=== PATIENT | female | born 1940 | race Caucasian/White ===

== ENCOUNTER 2017-09-11 12:00 | Emergency (ER) | payer MEDICARE, OTHER ==
[~2017-09-11] VITALS: Ht 162.6 cm; Wt 78.5 kg
[~2017-09-11 12:00] MED LIST: ADULT LOW DOSE81 MG PO; ALLOPURINOL 30300 M2 PO; ALORA1 EAC1 TRANSDERM; AMITRIPTYLINE H25 M3 PO; AMITRIPTYLINE H50 M2 PO; AMLODIPINE BESYL5 MG PO; APAP500 PO; ASPIR 8181 MG PO; ASPIRIN EC81 M1 PO; ATIVAN2 MG PO; BENTYL 10 MG CA10 M1 PO; CALCIUM 500 +1 EAC5 PO; CALCIUM 600 MG1 EAC2 PO; CALCIUM 600 MG1 EAC3 PO; CIPRO250 M1 PO; COLACE100 MG PO; COUMADIN 5 MG TA5 M1 PO; DIFLUCAN200 MG PO; EMLA CREAM5 GM TOP; ENOXAPARIN100 MG/11 SUBQ; ESTRACE0.5 MG PO; ESTRADIOL 1 MG T1 M1; ESTRADIOL 1 MG T1 M1 PO; FISH OIL 1,0001 EAC9 PO; HYDROCODON-ACE1 EAC7 PO; LEVSIN0.125 MG PO; MIRALAX17 GM PO; MULTI VITAMIN1 EACH PO; MULTIVITAMINS1 EAC7; NORVASC10 MG PO; OCUVITE TABLET1 EAC1 PO; OMEPRAZOLE40 MG PO; ONDANSETRON HCL4 M2 PO; OXYCODONE HCL 55 MG PO; PHENERGAN 25 MG25 M1 PO; PROMS25 WY RECTAL; SAVELLA50 MG PO; TOPROL XL50 MG PO; TOVIAZ8 MG PO; TYLENOL EXTRA500 MG PO; VITAMIN B-12500 MCG PO; VITAMIN D1000 UNI1 PO; VITAMIN E400 UNIT PO; VIVELLE-DOT1 EAC1 TRANSDERM; XALATAN2.5 ML OPHTHALMIC; XANAX1 MG PO; ZANTAC 150MG T150 MG PO
[2017-09-11] MEDS ORDERED: XANAX 0.25 MG0.25 MG PO (12:29)
[2017-09-11] MEDS ORDERED: FISH OIL 1,001000 M2 PO (12:29)
[2017-09-11] MEDS ORDERED: ANTIDIARRHEAL PO (12:30)
[2017-09-11] MEDS ORDERED: FIBER (12:31)
[2017-09-11] MEDS ORDERED: TRAMADOL 50 MG50 MG PO ×2 (12:31→14:38)
[2017-09-11] MEDS ORDERED: ATIVAN1 MG PO (12:32)
[2017-09-11] MEDS ORDERED: LOMOTIL TABLET1 EACH PO (12:34)
[2017-09-11] MEDS ORDERED: IBUPROFEN 800800 M1 PO (14:38)
[2017-09-11] MEDS ORDERED: ONDANSETRON HCL4 M2 PO (14:38)
[2017-09-11] MEDS ORDERED: KEFLEX500 M1 PO (14:38)
[2017-09-11 16:18] VITALS: BP 124/79
== END 2017-09-11 16:19 | disposition home or self-care (01) ==
LOC: M.ERS 12:00
DX: S42.421A Displaced comminuted supracondylar fracture without intercondylar fracture of right humerus, initial encounter for closed fracture (principal); S81.811A Laceration without foreign body, right lower leg, initial encounter; I71.4 Abdominal aortic aneurysm, without rupture; G62.9 Polyneuropathy, unspecified; Z88.8 Allergy status to other drugs, medicaments and biological substances; Z88.5 Allergy status to narcotic agent; Z88.0 Allergy status to penicillin; Z88.2 Allergy status to sulfonamides; W01.0XXA Fall on same level from slipping, tripping and stumbling without subsequent striking against object, initial encounter; Y93.89 Activity, other specified; Y92.89 Other specified places as the place of occurrence of the external cause; Y99.8 Other external cause status

== ENCOUNTER 2017-09-21 09:38 | Observation (INO) | payer MEDICARE, OTHER ==
[~2017-09-21] VITALS: Ht 165.1 cm; Wt 78.5 kg
[~2017-09-21 09:38] MED LIST changes: +ANTIDIARRHEAL PO; +ATIVAN1 MG PO; +FIBER; +FISH OIL 1,001000 M2 PO; +IBUPROFEN 800800 M1 PO; +KEFLEX500 M1 PO; +LOMOTIL TABLET1 EACH PO; +TRAMADOL 50 MG50 MG PO; +XANAX 0.25 MG0.25 MG PO
[2017-09-21 13:00] VITALS: BP 117/90
[2017-09-21 13:51] LABS: ABSOLUTE BASOPHILS 0.1 thou/uL (0.0-0.2); ABSOLUTE EOSINOPHILS 0.1 thou/uL (0.0-0.7); ABSOLUTE LYMPHOCYTES 1.5 thou/uL (0.8-5.3); ABSOLUTE MONOCYTES 0.5 thou/uL (0.0-1.2); ABSOLUTE NEUTROPHILS 3.1 thou/uL (1.6-8.1); EOSINOPHILS 1.2 %; HEMATOCRIT 38.6 % (37.0-47.0); HEMOGLOBIN 12.6 gm/dL (12.0-15.0); LYMPHOCYTES 28.1 %; MCH 31.4 pg (26.0-34.0); MCHC 32.7 g/dL (28.0-37.0); MCV 96.2 fL (80.0-100.0); MONOCYTES 10.2 %; MPV 7.9 fl. (7.2-11.1); NUCLEATED RBCS 0 /100WBC; PLATELET COUNT* 172 thou/uL (150-400); POLYS 59.5 %; RBC 4.01 mil/uL (4.20-5.00); RDW-CV 13.9 % (10.5-14.5); WBC 5.2 thou/uL (4.0-11.0)
[2017-09-21 13:55] LABS: CALCIUM 10.1 mg/dL (8.5-10.1); CREATININE 0.8 mg/dL (0.6-1.3)
[2017-09-21 13:56] LABS: APTT 27.8 Seconds (25.0-31.3); INR 1.1; PROTIME 10.6 Seconds (9.20-11.50)
[2017-09-21 13:59] LABS: ALBUMIN 3.7 g/dL (3.4-5.0); TOTAL PROTEIN 6.9 g/dL (6.4-8.2)
--- NOTE | 2017-09-21 17:45 | EKG ---
[place] [address] ELECTROCARDIOGRAM REPORT Name: KYREE BRAND Room: [place] [address] ADM IN [facility]#: [id number] Admission: 09/21/17 Attend Phys: Tereso Brown Discharge: Date of : 40 Report #: [id number] THIS REPORT FOR: //name// [facility] Test Date: 2017-09-21 Test Time: 13:40:37 Pat Name: KYREE BRAND Department: Room: [place] [address] Gender: F Section Gang Worker: : 1940 Requested By: Zackery Herrera Order Number: [id number] Tabatha MD: Hawk Castellanos Measurements Intervals Hay Rate: 97 P: 46 ND: 186 QRS: -11 QRSD: 95 T: -5 QT: 353 QTc: 449 Interpretive Statements Sinus rhythm Borderline T abnormalities, inferior leads Compared to ECG 11/11/2015 19:59:14 no change Electronically Signed On 09-21-2017 17:45:22 PHARMACIST PER DIEM by Hawk Castellanos [email or web address] <ELECTRONICALLY SIGNED> By: Hawk Castellanos MD, [facility] 09/21/17 1745 1340 1340 Hawk Castellanos MD, [facility] /EPI
[2017-09-21 20:09] VITALS: BP 136/76
[2017-09-22 00:34] VITALS: BP 136/84
[2017-09-22 04:28] LABS: HEMOGLOBIN 12.5 gm/dL (12.0-15.0)
[2017-09-22 04:33] VITALS: BP 176/88
[2017-09-22 07:44] VITALS: BP 165/81
[2017-09-22 11:39] VITALS: BP 165/81
[2017-09-22] MEDS ORDERED: OCUVITE TABLET1 EAC1 PO (16:58)
[2017-09-22] MEDS ORDERED: METAMUCIL1 EAC1 PO (17:05)
[2017-09-22] MEDS ORDERED: XARELTO10 MG PO (17:13)
[2017-09-22] MEDS ORDERED: BENTYL 10 MG CA10 M1 PO (18:57)
[2017-09-22] MEDS ORDERED: MILK OF MA2400 MG/10 PO (19:02)
[2017-09-22] MEDS ORDERED: PROTONIX40 M2 PO (19:04)
[2017-09-22] MEDS ORDERED: THERAGRAN-M PR1 EAC1 PO (19:07)
--- NOTE | 2017-11-28 12:57 | CON ---
[address] [address] CONSULTATION Name: KYREE BRAND Room: [address] Tony Grissom#: [id number] Admission: 09/21/17 Attend Phys: Tereso Brown Discharge: 09/22/17 Date of : 40 Report #: [id number] THIS REPORT FOR: //name// CC: Carlos Allen HISTORY OF PRESENT ILLNESS: The patient is a 77-year-old female who presents to [facility] for operative fixation of her right distal humerus. She saw my partner, Dr. Herrera on 09/16/2017. She sustained a fall on 09/11/2017. She went to [facility] Emergency Department where she was diagnosed with a distal humerus fracture. My partner, Dr. Junior as mentioned saw her in consultation. They had quite a long conversation about multiple different treatment options including nonoperative as well as operatively. After going over what nonoperative and operative management would entail, she wished to have surgery. This is her dominant arm. Her pain today is 5/10, sharp and for the most part constant. She does have a little bit of tingling in her fingers. She says the more she thinks about it, since asked by Dr. Herrera last week, this might be a chronic issue with her as she has fibromyalgia and neuropathy chronically. She presents today feeling well. No fevers, no chills, no chest pain or shortness of air. ALLERGIES: MORPHINE, SULFA, WHICH CAUSES A RASH; PENICILLIN, WHICH CAUSES HIVES; OXYCODONE, HALLUCINATION AND LATEX. MEDICATIONS: Omeprazole, dicyclomine, alprazolam, amitriptyline, Savella, latanoprost, fish oil, B12, izvw-kms-xzyoniz multivitamin, Tylenol, tramadol, lorazepam, diphenoxylate and atropine. SOCIAL HISTORY: and lives with spouse. Denies any tobacco, alcohol or illicit drug use. PAST MEDICAL HISTORY: History of blood clots, cancer, depression, fibromyalgia, gastric reflux, neuropathy, osteoporosis and rheumatoid arthritis. PAST SURGICAL HISTORY: Cholecystectomy, hysterectomy with ovaries, skin cancer, bilateral knee and hip replacement and also history of bilateral knee arthroscopy. FAMILY HISTORY: Arthritis, stroke, lung disease, thyroid disease, osteoporosis, mental illness, diabetes, hypertension, bleeding disorder, heart disease, autoimmune disease and seizure disorder. REVIEW OF SYSTEMS: A 14-point complete, it was negative except for musculoskeletal, please see HPI for [place] [address] CONSULTATION Name: KYREE BRAND Room: [address] Tony MYolyRYoly#: [id number] Admission: 09/21/17 Attend Phys: Tereso Brown Discharge: 09/22/17 Date of : 40 Report #: [id number] PHYSICAL EXAMINATION: VITAL SIGNS: Her vitals were reviewed today and they are stable and she is afebrile. GENERAL: She is alert and oriented x 3. HEENT: Head normocephalic. Eyes: Extraocular muscles are intact bilaterally. Ears: Normal hearing. Nose: Nares patent. LUNGS: Nonlabored breathing. CARDIOVASCULAR: Cap refill is brisk in the right upper extremity and palpable radial pulse. ABDOMEN: Soft. PSYCHIATRIC: Appears to be normal mood and affect. NEUROLOGIC: Grossly, she is intact distally. No specific sensory deficit can be identified; however, she does complain of some paresthesias especially of the ulnar nerve distribution. MUSCULOSKELETAL: Taken out of splint today. The skin is intact. Her compartments are soft and appropriately tender for her fracture. Swelling is mild. Flex and extends the wrist, fingers and thumb appropriately. Movement about the elbow is too painful to check. IMAGING: Imaging was reviewed, shows a transverse distal humerus fracture and appears to be an extraarticular. It is low in nature. IMPRESSION: Right transverse distal humerus fracture. PLAN: We had a long conversation today. Dr. Herrera had personally discussed this case with me about taking over her care as I am a trauma trained specialist. He personally called the patient and discussed with her that I would be taking over her care today for surgery and she was okay with this. I today talked about multiple different treatment options as well. We also went over what nonoperative management would entail and as far as I would be concerned the nonoperative management for this would be placing her in a splint for most likely another week to two weeks to allow this to rest and then we will begin an aggressive range of motion protocol trying to get her as much range of motion as we can. This would likely be a malunion. She would likely lose significant motion and could have pain. In regard to this affecting any arthritis, it is not an intra-articular fracture. I believe the main differences would be pain and range of motion. Surgical goals would be to give her a stable elbow with rastafarian of the normal anatomy and get her range of motion and pain in a better position. However, none of this could be guaranteed. After having my conversation, she still does wish to proceed with surgery. I therefore had a long conversation with her about the specific risks of surgery, they include but are not limited to infection that could require surgical treatment, long-term antibiotics and there are sequelae of end-organ damage, C. difficile colitis and resistance, continuing of pain, worsening of pain, decreased function compared to pre-injury function. I specifically talked [address] [place] [address] CONSULTATION Name: KYREE BRAND [place] Room: [address] Tony Grissom#: [id number] Admission: 09/21/17 Attend Phys: Tereso Brown Discharge: 09/22/17 Date of : 40 Report #: [id number] to her that stiffness is most likely going to be a concern. I told her to expect some loss of range of motion. The goal is going to get her to a functional range of motion, but full range of motion is definitely not something that could be promised, malunion, nonunion, failure of hardware, failure of bone, need for removal of hardware, need for further surgery for any reason or intervention for any reason, neurovascular injury that could be permanent, limb and life threatening nerve injury that can be very specific to this surgery as we will have to dissect out the ulnar nerve, would be an ulnar nerve injury that could lead to loss of hand function and significant areas of numbness throughout the extremity. The same could be said for the radial nerve as well as we will be in conjunction with this and that can lead to significant dysfunction of her hand. Any issues with this could even lead to Plastic Surgery type reconstruction or tendon transfers. Bleeding and its associated risks of hematoma hemarthrosis or need for transfusion and the inherent risks associated with that. DVT, PE, AK, stroke, possible , anesthetic related complications would be discussed by the anesthesia team prior to surgery. There is also a possibility of unforeseen complications and tangibles and will be addressed upon their presentation. This whole visit we had was in the presence of her daughter and her as well. After addressing any questions or concerns if she or family members had, she acknowledged and accepted the risks of surgery and she does wish to proceed and we obtained her verbal and written consent. After surgery, she will be admitted for observation and medical management. We will have therapy work with her in the morning as far as helping her get around and transfer. She will be in a splint for 2 weeks and nonweightbearing. I made sure that the family members as well as her had access to my cell phone number and let them know that at any point in time, they may call or text me with any questions or concerns. <ELECTRONICALLY SIGNED> By: Alexandro Junior DO 11/28/17 1257 [id number] [id number] Loya DO /margarita
--- NOTE | 2017-11-28 12:57 | OP ---
[address] [address] OPERATIVE REPORT Name: KYREE BRAND Room: [address] Tony Grissom#: [id number] Admission: 09/21/17 Attend Phys: Tereso Brown Discharge: 09/22/17 Date of : 40 Report #: [id number] THIS REPORT FOR: //name// CC: Carlos Allen PREOPERATIVE DIAGNOSES: 1. Right distal humerus fracture, intra-articular, closed, displaced, traumatic. 2. Osteopenia. POSTOPERATIVE DIAGNOSES: 1. Right distal humerus fracture, intra-articular, closed, displaced, traumatic. 2. Osteopenia. PROCEDURE: Open reduction and internal fixation of right intra-articular distal humerus fracture. SURGEON: Carlos Loya DO. BLUEPRINT MAKER: Shun Avila DO and Orestes Pulido DO. ANESTHESIA: General. ANTIBIOTICS: Weight-appropriate dosing of Ancef IV preoperatively. COMPLICATIONS: None. ESTIMATED BLOOD LOSS: 100 mL. SPECIMENS: None. DRAINS: None. CONDITION OF THE PATIENT: Stable to PACU. IMPLANTS: Shannan distal humeral plates, medial and posterolateral, with cortical and locking screws. INDICATIONS FOR PROCEDURE: The patient is a 77-year-old female, who had originally seen my partner, Dr. Herrera. He was in direct communication with me in regards to her care and he personally discussed with the family as well about my taking over her care as I am an orthopedic fracture specialist. I met them in the preoperative area and we had a very long discussion about her treatment [address] [place] [address] OPERATIVE REPORT Name: KYREE BRAND Room: [address] Angelika.#: [id number] Admission: 09/21/17 Attend Phys: Tereso Brown Discharge: 09/22/17 Date of : 40 Report #: [id number] options and what the risks and complications were regarding both, especially surgery. Please see my consultation for a full list of what was discussed. After addressing the questions and concerns that she and/or family had, she acknowledged and accepted those risks and wished to proceed with surgery, and we obtained a verbal and written consent. DESCRIPTION OF PROCEDURE: In the presence of the preoperative and operative teams, I asked the patient as to what extremity was fractured and she said the right. I marked that extremity and all team members agreed. She was taken back to the operative suite, where a briefing was performed, indicating correct patient, procedure, site, antibiotics and that all implants needed were present and sterile. All team members agreed. General anesthetic was administered. She was transferred over the operative table in the supine position, then placed in the left lateral decubitus position in a razo bag, well padded and well secured. The right upper extremity was draped over appropriately and we bolstered this with a bone foam ramp, brought in the C-arm and confirmed that we should obtain the appropriate images necessary. We then sterilely prepped and draped the right upper extremity in the standard fashion. We placed a sterile tourniquet. Official timeout was performed indicating correct patient, procedure, site, antibiotics, and that all implants needed were present and sterile. All team members agreed. We marked out our incision directly posteriorly and making sure that the incision curved so that it would not be directly over the olecranon. We Esmarched the extremity and inflated the tourniquet to 250 mmHg and began our incision. A #10 blade scalpel through the skin and then soft tissue dissection down to the fascial layer. We first began by working our way ulnarly at the confluence of the medial and long edge. We expected to find her ulnar nerve and we did. Her ulnar nerve had significant scarring around with this and was very entrapped at the cubital tunnel and Slade's ligament. We tagged this with a vessel loop and only performed gentle retraction and protected it throughout the entirety of the case and freed it up so that it was freely mobile and make it work on either side of this when necessary so as to avoid any injury to the nerves. We came down and explored her medial aspect of the distal humerus and then also the humeral shaft itself. We then went over to the radial side, dissected only what was necessary to again gain access to her distal humerus. Our approach was paratricipital in nature. We did not perform an osteotomy of the olecranon. Once we had full visualization on both sides of the triceps, we were then able to curette out the fracture sites. She had some significant comminution and bone loss on the posterior lateral aspect; however, we were able to get an excellent fracture reduction and read on the medial side. Once we obtain that reduction and pinned it with K wires, both medially and laterally, we brought in C-arm imaging and confirmed that our reduction on both AP and lateral planes as well as internal and external obliques looking at her condyles, our reduction was excellent and we had restored the anatomy. We then placed a medial plate, K-wired this into position. We trialled a lateral plate [address] [address] OPERATIVE REPORT Name: KYREE BRAND [id number] Admission: 09/21/17 Attend Phys: Tereso Brown Discharge: 09/22/17 Date of : 40 Report #: [id number] for parallel plating. However, we would not be able to obtain any more than just one screw distally with this type of construct. We then trialled a posterolateral plate. This would allow us to get two locking screws in the distal aspect of the fracture. Therefore, this was more appropriate. We pinned this into position, brought in C-arm imaging and confirmed that our fracture reduction was excellent and our hardware position was excellent. We first began by securing the lateral plate. We did this by drilling a cortical screw in nature to suck this down in the bone proximally. It was still sitting down on the bone nicely. Distally, we then drilled and placed 2 unicortical locking screws in the distal fragment and then one more locking screw in the metaphyseal area. We then turned our attention medially. Medially, we sucked it down the bone on the proximal aspect of the cortical screw. We then were able to place a long screw locking and another long screw locking on the distal fragment from the medial side and then 2 more cortical screws. At this point in time, all hardware was in place. We removed K wires. We brought in C-arm imaging. We confirmed that all screws were appropriate length, hardware was in excellent position, fracture reduction was excellent and that all screws were extra-articular and appropriate length. Under direct visualization as well as under live fluoroscopy, we took the elbow through full range of motion and it was stable. The construct was moving as one unit. There was no evidence of impingement and full range of motion could be obtained not only in pronation and supination, but also flexion and extension of the elbow. At this point in time, we let the tourniquet down. Total tourniquet time was 107 minutes. We maintained hemostasis and we thoroughly irrigated. We irrigated deeply with 1000 mL of normal saline and began our closure. We reapproximated our paratricipital areas, both laterally and medially, with 0 Vicryl guzkyw-hq-jtfia interrupted. It should be noted that the ulnar nerve, if we had left this directly onto the plate, it would have had significant irritation. We, therefore, closed the soft tissue between the plate and the nerve and the nerve was slightly transposed in a subcutaneous and well protected with fat pad graft position. Now, we are in the subcutaneous layer. We thoroughly irrigated again with 500 mL of normal saline and closed this with 0 Vicryl hqqdlh-gu-zswho interrupted deep. Prior to all closure, our initial count was correct. We finished our closure with 2-0 Monocryl buried deep in a running subcuticular stitch with 3-0 Stratafix. Dermabond glue over the skin. Now that we had officially closed, we performed a debriefing, where we confirmed the procedure stated no complications, blood loss and that all counts were correct and final. All team members agreed. Sterile Mepilex AG dressing was applied and then she was placed in a well-padded and well-molded posterior splint. She was successfully extubated and transferred off the operative table and taken to PACU in stable condition. POSTOPERATIVE COURSE AND EVALUATION: I spoke with her family members, including her and daughter, addressed any questions or concerns that they had and [address] [address] OPERATIVE REPORT Name: KYREE BRAND Room: 106-P [facility] Tony Grissom#: [id number] Admission: 09/21/17 Attend Phys: Tereso Brown Discharge: 09/22/17 Date of : 40 Report #: [id number] let them know that she was resting and recovering well in PACU. I examined the patient in the PACU. She was groggy, but able to follow commands. She was fully neurovascularly intact distally, had excellent radial pulse and brisk cap refill. She could fully extend and flex the wrist, abduct and adduct her fingers, flex and extend the fingers and give a thumbs up. Her exam was unchanged compared to preoperative exam. Compartments were soft and her splint was clean, dry and intact. I reviewed the postoperative films in the PACU. The postoperative PACU films showed excellent fracture reduction and excellent position of hardware. She is going to be admitted. She has quite a significant history medically. She has a history of aortic aneurysm. She also has a history of cancer, which she has gone through chemotherapy and she also has a history of blood clots and as recently as the last 3 months, she had just discontinued warfarin. Therefore, we will do pharmacologic DVT prophylaxis with Xarelto as long as this is okay with Medicine. She is nonweightbearing. Splint is to remain clean, dry and intact until I see her in 2 weeks for followup. Therapy will be working with her to make sure that she is transitioning and safe to go home. I made sure the family and she have access to my cell phone number. They may call at any time with questions or concerns. <ELECTRONICALLY SIGNED> By: Alexandro Junior DO 11/28/17 1257 [id number] Ramez Loya DO /nt
== END 2017-09-22 18:35 ==
LOC: M.PRE 09:38 → M.TBA 13:05 → M.ORTHSURG 18:55
PROVIDERS: Orthopaedic Surgery; ADMIT Internal Medicine
DX: S42.491A Other displaced fracture of lower end of right humerus, initial encounter for closed fracture (principal); I71.4 Abdominal aortic aneurysm, without rupture; I89.0 Lymphedema, not elsewhere classified; R53.81 Other malaise; M06.9 Rheumatoid arthritis, unspecified; M79.7 Fibromyalgia; G62.9 Polyneuropathy, unspecified; M81.0 Age-related osteoporosis without current pathological fracture; K21.9 Gastro-esophageal reflux disease without esophagitis; F32.9 Major depressive disorder, single episode, unspecified; W19.XXXA Unspecified fall, initial encounter; Y93.89 Activity, other specified; Y92.89 Other specified places as the place of occurrence of the external cause; Y99.8 Other external cause status; Z90.710 Acquired absence of both cervix and uterus; Z90.49 Acquired absence of other specified parts of digestive tract; Z96.651 Presence of right artificial knee joint; Z96.652 Presence of left artificial knee joint; Z96.649 Presence of unspecified artificial hip joint; Z85.828 Personal history of other malignant neoplasm of skin

== ENCOUNTER 2017-09-22 16:40 | Inpatient (IN) | payer MEDICARE, OTHER ==
[~2017-09-22] VITALS: Ht 162.6 cm; Wt 82.1 kg
[2017-09-22] MEDS ORDERED: OCUVITE TABLET1 EAC1 PO (16:58)
[2017-09-22] MEDS ORDERED: METAMUCIL1 EAC1 PO (17:05)
[2017-09-22] MEDS ORDERED: XARELTO10 MG PO (17:13)
[2017-09-22] MEDS ORDERED: BENTYL 10 MG CA10 M1 PO (18:57)
[2017-09-22] MEDS ORDERED: MILK OF MA2400 MG/10 PO (19:02)
[2017-09-22] MEDS ORDERED: PROTONIX40 M2 PO (19:04)
[2017-09-22] MEDS ORDERED: THERAGRAN-M PR1 EAC1 PO (19:07)
[2017-09-22 20:10] VITALS: BP 133/79
--- NOTE | 2017-09-23 00:29 | NUR ---
PT ARRIVED TO FLOOR AT 1842 FROM [facility]THO. PT IS ALERT AND ORIENTED TO SELF, OCCASIONALLY CONFUSED AND FORGETFUL. PT AND EAGER TO COMPLETE ADMISSION PROCESS. PT RIGHT ARM IN SLING FROM REPAIR HUMERUS FX REPAIR. EXTENSIVE BRUISING, DRESSING INTACT, RIGHT HAND SWOLLEN. PT HAS TWO SKIN TEARS TO RIGHT LOWER LEG COVERED WITH FOAM BORDER DRESSINGS. PICTURES IN CHART. PT UNSTEADY WHEN UP TO BATHROOM WITH CANE AND GAITBELT. SOMETIMES CROSSES HER FEET OVER ONE ANOTHER WHEN WALKING AND SAYS SHE DOES THIS AT HOME AND IS PROBABLY THE REASON WHY SHE FELL. PT HAS EXTENSIVE GI PROBLEMS. PT IS ON SEVERAL ANTI-ANXIETY MEDS. TAKES PILLS WHOLE WITH WATER WITHOUT DIFFICULTY. BED ALARM ON FOR SAFETY. CALL LIGHT AND FREQUENTLY USED ITEMS WITHIN REACH. HOURLY ROUNDING IN PROGRESS, WILL CONTINUE TO MONITOR.
[2017-09-23 05:19] LABS: HEMATOCRIT 31.7 % (37.0-47.0); MCH 31.5 pg (26.0-34.0); MCHC 32.8 g/dL (28.0-37.0); MCV 96.2 fL (80.0-100.0); MPV 8.1 fl. (7.2-11.1); RBC 3.3 mil/uL (4.20-5.00); RDW-CV 14.1 % (10.5-14.5); WBC 6.4 thou/uL (4.0-11.0)
[2017-09-23 05:29] LABS: HEMOGLOBIN 10.4 gm/dL (12.0-15.0)
--- NOTE | 2017-09-23 05:30 | NUR ---
REPORT RECEIVED AND ASSUMED CARES AT 0100. PT ALERT AND ORIENTED. PLEASANT. SHE IS A MIN ASSIST WITH GAIT BELT AND CANE. UP TO BATHROOM. DOES OWN CARES. UNSTEADINESS WITH GAIT. SLEPT WELL OTHERWISE. CALL LIGHT IN REACH. BED ALARM ON.
[2017-09-23 05:53] LABS: CALCIUM 9.5 mg/dL (8.5-10.1); CREATININE 0.7 mg/dL (0.6-1.3); POTASSIUM 3.5 mmol/L (3.5-5.1)
[2017-09-23 07:30] VITALS: BP 131/62
--- NOTE | 2017-09-23 11:07 | NUR ---
WOUND CARE NOTE: CONSULT RECEIED FOR RIGHT LEG WOUNDS. PATIENT PRESENTS WITH TWO SKIN TEARS RELATED TO A FALL AT HOME. RIGHT LEG, PROXIMAL: 85% BLACK SCAB, 15% MOIST, RED TISSUE. SMALL AMOUNT OF SEROSANGUINEOUS DRAINAGE. GENEVA-WOUND INTACT, BUT DOES HAVE ECCHYMOSIS. GENTLY CLEANSED WOUND WITH WOUND CLEANSER, PATTED DRY. APPLIED OPTIFOAM AG AND SECURED WITH DOUBLE LAYER TUBIGRIP. RIGHT LEG, DISTAL: MOIST, PINK WOUND BED. SMALL AMOUNTS OF SEROSANGUINEUS DRAINAGE. WOUND MEASURES 4.5X1.8X0.2. GENEVA-WOUND WITH ECCHYMOSIS. WOUND WAS GENTLY CLEANSED WITH WOUND CLEANSER, PATTED DRY. APPLIED OPTIFOAM AG AND SECURED WITH DOUBLE LAYER TUBIGRIP. MEASURED PATIENT FOR BILATERAL DOUBLE LAYER TUBIGRIPS SIZE-F. PALPABLE PEDAL PULSES. PATIENT STATES SHE TYPICALLY WEARS COMPRESSION AT HOME. EDUCATED PATIENT ON DRESSING SELECTION, COMMUNICATED UNDERSTANDING. RECOMMEND DOUBLE LAYER TUBIGRIPS BILATERAL LEGS-REMOVE AND REPLACE DAILY FOR SKIN CHECKS ENCOURAGE GOOD NUTRITION AND HYDRATION ELEVATE LEGS CLEANSER, PATTED DRY.
--- NOTE | 2017-09-23 12:12 | NUR ---
Nutrition: Consult received for new rehab admit. Broken humerus. Wt: 170#. RX: MVI, fish oil. Pt eating 100% of regular diet. Wound RN is seeing pt. Albumin 3.7, BG WNL. No nutrition interventions needed today. Will follow weekly on Rehab unit.
--- NOTE | 2017-09-23 14:16 | NUR ---
I have reviewed the documentation by DONALD GALVAN from 09/23/17 to 09/23/17 and I concur with it. SUKHJINDER MUNGUIA
--- NOTE | 2017-09-23 15:13 | NUR ---
SW met with pt to complete initial assessment, introduce self, and SW role. Pt alert, oriented. Pt lives at home with her . Pt has a walk in shower, cane, walker, wc. Pt has 2 steps to enter her home and a flight of stairs but does not need to use the flight of stairs. Pt does not have a history with HH or SNF. According to PT, pt may need a new SPC as the one pt has is too tall for pt. SW to continue to follow to assist with safe dc planning.
--- NOTE | 2017-09-23 15:26 | NUR ---
ASSUMED CARE AT 0730. ALERT ORIENTED PLEASANT COOPERATIVE. HX OF RT. HUMERUS FX NWBRUE WEARING ANGEL WRAP AND ARM IS IN SLING ELEVATE MUCH POSSIBLE. ICE APPLIED PER PT. REQUEST. MEDICATED X 1 WITH IBUPROFEN 2 TABS PO BEFORE THERAPY STARTED THIS A.M. FEEDS SELF APPETITE GOOD NEEDS SET UP CUT UP MEAT AT LUNCH MEAL IN DRY[place] PARTICIPATING IN THERAPIES THROUGHOUT THE DAY. USES CALL LIGHT APPROPRIATELY, DAUGHTER REPORTED PT. IS FORGETFUL RE NWBRUE. RT. HAND HAS EDEMA PRESENT. VOIDS IN BR AND IS ABLE TO DO HYGEINE AND CLOTHING ADJUSTMENTS.
[2017-09-23 20:00] VITALS: BP 154/87
--- NOTE | 2017-09-24 00:29 | NUR ---
ASSUMED CARE AT 1929. PATIENT S/P RT HUMERUS FRACTURE. RESTING IN RECLINER UNTIL AROUND 2129. VISITING UNTIL AROUND 2029. UP WITH SBA, GAIT BELT, NWB ON RUE. NEEDS HELP ON ONE SIDE TO ADJUST CLOTHING. CAN DO OWN HYGIENE. VOIDS PER TOILET. TAKES PILLS WHOLE WITH WATER. RUE ANGEL WRAP C/D/I. RT HAND EDEMATOUS, AND ELEVATED ON PILLOWS. BILAT RADIAL PULSES ADEQUATE. TOOK IBUPROFEN AT HS. CALL LITE IN REACH. BED ALARM ON. HOURLY ROUNDS CONTINUE.
--- NOTE | 2017-09-24 05:57 | NUR ---
SLEPT MOST OF THE NIGHT. UP TO VOID PER TOILET. UP WITH SBA, GAIT BELT, CANE. NEEDS A LITTLE HELP GETTING PANTS UP AND DOWN ON AFFECTED SIDE. HOURLY ROUNDS CONTINUE. BED ALARM ON. CALL LITE IN REACH.
[2017-09-24 07:36] VITALS: BP 138/78
--- NOTE | 2017-09-24 16:47 | NUR ---
ASSUMED CARE AT 0730, PATIENT ALERT/ORIENTED, PAIN MEDS GIVEN X2 THIS SHIFT WITH GOOD RELIEF, SWELLING TO RIGHT HAND, ARM IN SLING AND WRAPPED IN ANGEL BANDAGE WHICH IS CLEAN/DRY/INTACT, UP WITH ONE AND GAIT BELT/CANE. TO DINING ROOM FOR MEALS, PARTICIPATED IN ALL THERAPIES TODAY. HOURLY ROUNDING COMPLETED, CALL LIGHT IN REACH, BED/CHAIR ALARMS IN PLACE, CONTINUE WITH CURRENT PLAN OF CARE
[2017-09-24 20:24] VITALS: BP 149/83
--- NOTE | 2017-09-24 22:02 | NUR ---
ASSUMED CARE AT 1930. S/P RT HUMERUS FRACTURE. RESTING IN RECLINER WITH SLING ON, RUE ELEVATED ON PILLOW. ANGEL WRAP C/D/I. HAND SWELLING DIMINISHED SOME COMPARED TO THIS TIME YESTERDAY. ICE PACK TO RT HAND. UP WITH SBA, GAIT BELT, CANE. ABLE TO DO OWN HYGIENE AND CLOTHING ADJUSTMENTS IF GIVEN TIME. TAKES PILLS A FEW AT A TIME WITH WATER WITHOUT DIF. OFFERED TRAMADOL AT HS, SHE DECLINED THIS AND GOT IBUPROFEN PER HER REQUEST. STATES HAS HX OF IBS. DECLINED STOOL SOFTENER TONIGHT. HOURLY ROUNDS CONTINUE. BED AND CHAIR ALARMS IN USE. CALL LITE IN REACH.
--- NOTE | 2017-09-25 05:24 | NUR ---
SLEPT MOST OF THE NIGHT EXCEPT WAKING TO VOID. DENIES FURTHER PAIN. HOURLY ROUNDS CONTINUE. BED ALARM ON. CALL LITE IN REACH. PATIENT TURNS SELF IN BED. RUE ELEVATED ON PILLOW.
[2017-09-25 07:00] VITALS: BP 120/68
--- NOTE | 2017-09-25 07:30 | NUR ---
0730 ASSUMED CARE OF PT. PLEASE SEE DOCUMENTED ASSESSMENT. PT IS AXOX4. DENIES PAIN. UP W/STANDBY ASSIST, GAIT BELT, WALKER TO TOILET. PT IS S/P RIGHT ARM FX SURGERY, RIGHT ARM IN SLING. GOALS THIS SHIFT ARE TO: INCREASE ACTIVITY TOLERATED, PAIN MANGEMENT, AND ASSIST W/BATHING.
--- NOTE | 2017-09-25 17:56 | NUR ---
OUTCOME SUMMARY: PROGRESSING TOWARDS GOALS. PT ABLE TO INCREASE ACTIVITY THIS SHIFT. ABLE TO ASSIST W/BATHING/GROOMING/DRESSING. PAIN TOLERATED WELL W/PRN TRAMADOL. OVERALL PROGNOSIS: GOOD.
[2017-09-25 19:30] VITALS: BP 131/65
--- NOTE | 2017-09-25 22:25 | NUR ---
ASSUMED CARE AT 1929. PATIENT SITTING IN RECLINER UNTIL AROUND 2129. S/P RT HUMERUS FRACTURE. RUE IN ANGEL WRAP, SLING. NBW TO RUE. TAKES PILLS WHOLE WITH WATER WITHOUT DIFF. UP WITH SBA, GAIT BELT, CANE. VOIDS PER TOILET, ABLE TO DO HYGIENE AND CLOTHING ADJUSTMENT. WEARING BRIEF. BILAT TUBIGRIPS ON, DRESSINGS TO RLE INTACT. REFUSED COLACE THIS PM. DECLINED TRAMADOL, GOT IBUPROFEN PER REQUEST AT HS. TURNS SELF. HEELS OFFLOADED WITH PILLOW. PILLOWS ELEVATING RUE. CALL LITE IN REACH. BED ALARM ON. HOURLY ROUNDS CONTINUE.
--- NOTE | 2017-09-26 06:26 | NUR ---
SLEPT MOST OF THE NIGHT EXCEPT TO VOID. TURNS SELF. RUE ELEVATED ON PILLOW. NO FURTHER C/O PAIN. HOURLY ROUNDS CONTINUE. BED ALARM ON. CALL LITE IN REACH.
[2017-09-26 08:20] VITALS: BP 118/64
--- NOTE | 2017-09-26 10:42 | NUR ---
WOUND CARE NOTE: WAS ASKED TO REASSESS BY PATIENT'S RN. CONCERNS FOR WORSENING OF WOUNDS. PROXIMAL RIGHT LEG: ESCHAR IS NOW MOIST, YELLOW SLOUGH. WOUND APPEARS LESS INFLAMMED WITH NEW EPITHELIUM. BELIEVE WOUND IS PROGRESSING. DISTAL RIGHT LEG: MOIST, RED WOUND BED. SLIGHT MACERATION NOTED TO GENEVA-WOUND. WOUNDS WERE BOTH CLEANSED WITH WOUND CLEANSER, PATTED DRY. APPLIED OPTIFOAM AG. PLACED LOTION TO INTACT SKIN. REPLACED DOUBLE LAYER TUBIGRIP. RECOMMEND CONTINUE WITH CURRENT DRESSING ORDERS ENCOURAGE GOOD NUTRITION/HYDRATION-PATIENT IS NOT FOND OF FOOD. STILL ENCOURAGED TO EAT
--- NOTE | 2017-09-26 15:14 | NUR ---
ASSUMED CARE AT 0730. ALERT ORIENTED PLEASANT COOPERATIVE. HX OF RT. HUMERUS FX NWBRUE. WEARING ANGEL WRAP AND ARM IS SUPPORTED IN SLING, ELEVATED MUCH POSIBLE ON PILLOW. EDEMA PRESENT R HAND. MEDICATED X 1 WITH IBUPROFEN 2 TABS PO BEFORE THERAPIES START. TRANSFERS WITH SBA G BELT CANE AND AMBULATES TO BR TO VOID ABLE TO DO HYGEINE AND CLOTHING ADJUSTMENTS. USES CALL LIGHT APPROPRIATELY FOR ASSIST. PARTICIPATING IN THERAPIES THROUGHOUT THE DAY. FEEDS SELF WITH SET UP APPETITE GOOD.
--- NOTE | 2017-09-26 15:55 | NUR ---
I have reviewed the documentation by DONALD GALVAN from 09/26/17 to 09/26/17 and I concur with it. SUKHJINDER MUNGUIA
--- NOTE | 2017-09-26 16:17 | NUR ---
I have reviewed the documentation by DONALD GALVAN from 09/26/17 to 09/26/17 and I concur with it. SUKHJINDER MUNGUIA
[2017-09-26 19:44] VITALS: BP 137/60
--- NOTE | 2017-09-27 05:33 | NUR ---
ASSUMED CARES AT 1915. PT ALERT AND ORIENTED. PLEASANT. C/O ALL OVER SORENESS FROM THERAPY. PAIN MEDS GIVEN PRN. S/P RT HUMERUS FRACTURE. RUE ANGEL WRAPPED AND IN SLING. NWB RUE. SHE IS A SBA WITH GAIT BELT AND CANE. UP TO BATHROOM FEW TIMES DURING THE NIGHT. DRESSINGS INTACT TO RLE WITH BLE TUBIGRIPS IN PLACE. PT REFUSED TO REMOVE THEM AT BEDTIME. TESSLON PERLE GIVEN FOR COUGH. PT SLEPT LITTLE OFF AND ON. UNABLE TO SLEEP. C/O DRY MOUTH. MOUTH MOISTURIZER GIVEN WITH SOME RELIEF. USED CALL LIGHT APPROPRIATELY. BED ALARM ON.
[2017-09-27 07:54] VITALS: BP 152/71
--- NOTE | 2017-09-27 14:14 | NUR ---
ASSUMED CARE AT 0730. ALERT ORIENTED PLEASANT COOPERATIVE. HX OF RT. HUMERUS FX NWBRUE. ANGEL WRAP AND SLING IN PLACE TO SUPPORT RUE EDEMA PRESENT RT. HAND. ELEVATED WHEN NOT IN THERAPIES. TRANSFERS WITH SBA G BELT CANE AND AMBULATES TO BR TO VOID ABLE TO DO HYGEINE AND CLOTHING ADJUSTMENTS. FEEDS SELF WITH SET UP. USES CALL LIGHT APPROPRIATELY FOR ASSIST. HERE VISITING.
[2017-09-27 20:30] VITALS: BP 102/50
--- NOTE | 2017-09-28 05:26 | NUR ---
ASSUMED CARES AT 1920. PT ALERT AND ORIENTED. UP IN RECLINER. SLING TO RIGHT ARM. RUE IS ANGEL WRAPPED. NON WT BEARING RUE. SHE IS A MIN ASSIST WITH GAIT BELT AND CANE. CAN STILL BE UNSTEADY AT TIMES. UP TO BATHROOM. DOES OWN CARES. NOT COUGHING MUCH TONIGHT. MELATONIN ORDERED AND WAS GIVEN PER PT REQUEST. DID HAVE NAUSEA X 1 DURING THE NIGHT. REFUSED ANTINAUSEA MED. SYMPTOMS DID SUBSIDE. PT SLEPT OFF AND ON. CALL LIGHT IN REACH.
[2017-09-28 08:00] VITALS: BP 126/67
--- NOTE | 2017-09-28 12:58 | NUR ---
I have reviewed the documentation by DONALD GALVAN from 09/28/17 to 09/28/17 and I concur with it. SUKHJINDER MUNGUIA
--- NOTE | 2017-09-28 15:07 | NUR ---
SW met with pt to review team conference summary with pt. Plan for pt to remain on rehab and continue therapies at least another week and for team to reassess pt length of stay during team conference next Tuesday, 10/05. Pt was okay with plan but she expressed that she felt she would be ready by next week to return home. SW to continue to follow to assist with safe dc planning.
--- NOTE | 2017-09-28 16:15 | NUR ---
ASSUMED CARE AT 0730 PATIENT ALERT/ORIENTED, NO PAIN MEDS GIVEN THIS SHIFT, RIGHT ARM DRESSING INTACT WITH ANGEL BANDAGE IN PLACE, UP WITH STANDBY ASSIST, GAIT BELT AND CANE, HOURLY ROUNDING COMPLETED, BED/CHAIR ALARMS IN PLACE, CALL LIGHT IN REACH, PARTICIPATED IN ALL THERAPIES, TO DINING ROOM FOR MEALS. CONTINUE WITH CURRENT PLAN OF CARE. RETEAM WITH D/C NEXT WEEK TO HOME
--- NOTE | 2017-09-28 16:29 | NUR ---
I have reviewed the documentation by DNOALD GALVAN from 09/28/17 to 09/28/17 and I concur with it. SUKHJINDER MUNGUIA
[2017-09-28 20:00] VITALS: BP 142/87
--- NOTE | 2017-09-29 05:50 | NUR ---
ASSUMED CARES AT 1920. ALERT AND ORIENTED. PLEASANT. IBUPRFEN GIVEN FOR ALL OVER ACHE FROM THERAPY. MELATONIN GIVEN FOR SLEEP. SHE IS A MIN ASSIST WITH GAIT BELT AND CANE. CAN STILL BE UNSTEADY AT TIMES. UP TO BATHROOM SEVERAL TIMES DURING THE NIGHT. DOES OWN CARES. SEEMED TO HAVE SLEPT BETTER THAN NIGHT BEFORE. CALL LIGHT IN REACH.
[2017-09-29 08:17] VITALS: BP 127/71
--- NOTE | 2017-09-29 15:53 | NUR ---
I have reviewed the documentation by DONALD GALVAN from 09/29/17 to 09/29/17 and I concur with it. SUKHJINDER MUNGUIA
--- NOTE | 2017-09-29 16:01 | NUR ---
ASSUMED CARE AT 0730 PATIENT ALERT/ORIENTED, NO COMPLAINTS OF PAIN THIS SHIFT, DRESSING TO RLE CHANGED. UP WITH STANDBY AND CANE, PARTICIPATED IN ALL THERAPIES TODAY, TO DINING ROOM FOR MEALS, HOURLY ROUNDING COMPLETED, BED/CHAIR ALARMS IN PLACE, CALL LIGHT IN REACH. XRAY TO RIGHT ARM TO BE COMPLETED PRIOR TO D/C, ORDER PLACED FOR 10/05/17. CONTINUE WITH CURRENT PLAN OF CARE
[2017-09-29 20:00] VITALS: BP 134/69
--- NOTE | 2017-09-30 00:13 | NUR ---
ASSUMED CARE AT 1930. S/P RT HUMERUS FX. PLAYED BINGO UNTIL AROUND 2014. SAT IN RECLINER UNTIL AROUND 2200 THEN READY FOR BED. UP WITH CGA, GAIT BELT, CANE, SLING. TAKES PILLS WHOLE WITH WATER. VOIDS PER TOILET. DOES OWN HYGIENE AND CLOTHING ADJUSTMENT. MEDICATED FOR PAIN AT HS, SEE OCT. TURNS SELF. RT ARM ELEVATED ON PILLOWS. SWELLING IN RT HAND MUCH IMPROVED. APPEARS SLEEPING AT THIS TIME. HOURLY ROUNDS CONTINUE. BED ALARM ON. CALL LITE IN REACH.
--- NOTE | 2017-09-30 05:23 | NUR ---
SLEPT MOST OF THE NIGHT EXCEPT TO VOID. VOIDS PER TOILET, UP WITH CGA, GAIT BELT, CANE. NO FURTHER C/O DISCOMFORT. HOURLY ROUNDS CONTINUE. BED ALARM ON. CALL LITE IN REACH.
[2017-09-30 07:30] VITALS: BP 116/62
[2017-09-30 08:00] VITALS: BP 116/62
--- NOTE | 2017-09-30 16:46 | NUR ---
ASSUMMED CARE OF PT AT 0730, PT ALERT AND ORIENTED, PT TRANSFERS WITH ASSIST OF 1, GB AND CANE, ANGEL WRAP DRESSING TO RIGHT ARM CLEAN ,DRY AND INTACT, DRESSING CHANGED TO SKIN TEARS ON RIGHT LEG AND DOUBLE TUBIGRIP RE APPLIED TO BILATERAL LEGS, PT DENIED NEED FOR PAIN MEDICATION THIS SHIFT, PT VOIDS PER TOILET, AMB TO DININGROOM, PT PARTICIPATED IN ALL THERAPIES, HOURLY ROUNDING COMPLETED, ASSESSMENT COMPLETE, WILL CONTINUE TO MONITER.
[2017-09-30 19:55] VITALS: BP 106/84
--- NOTE | 2017-10-01 01:53 | NUR ---
ASSUMED CARE @ -TUESDAY.SITS IN RECLINER W/ POSTERIOR SPLINT RUE WRAPPED W/ ANGEL BANDAGE.TUBIGRIPS IN PLACE LEGS.REFUSED ICE PACK @ 2009.SEE PAIN MANAGEMENT @ 2211.USES RIGHT ARM SLING WHILE IN BED.WEARS PULL UPS. NWB RUE OBSERVED.USES STRAIGHT CANE FOR AMBULATION.HAS DRY COUGH.PRN TESSALON PERLE 2 CAPS ORAL GIVEN @ 9171.ON HOURLY ROUNDS.CUSTOMER OPERATIONS SPECIALIST DOING ODD HOUR ROUNDS.
--- NOTE | 2017-10-01 05:39 | NUR ---
SLEEPING SINCE -10/01-SAT.BRP W/ ASSIST X5.TOOK ALL TO CRACKERS X 2 PACKAGES W/ HOT TEA HS SNACKS.
[2017-10-01 07:00] VITALS: BP 115/62
--- NOTE | 2017-10-01 16:01 | NUR ---
ASSUMED CARE AT 0730. ALERT ORIENTED PLEASANT COOPERATIVE. HX OF RT. HUMERUS FX NWBRUE. ANGEL WRAP C/D/I TO RT. UPPER EXTREMITY. TRANSFERS WITH SBA G BELT CANE AND AMBULATES TO BR TO VOID. HAD A VERY SMALL BM THIS AFTERNOON. ABLE TO DO HYGEINE AND CLOTHING ADJUSTMENTS. USES CALL LIGHT APPROPRIATELY FOR ASSIST. BED CHAIR ALARM FOR PT. SAFETY. FEEDS SELF AND TAKES MEDS WITHOUT DIFFICULTY. PARTICIPATING IN THERAPIES TODAY. DRESSINGS CHANGED TO RT. LOWER EXTREMITY CORLEY X 2 AFTER SHOWER AND TUBIGRIPS REAPPLIED. SITTING IN RECLINER BLES ELEVATED. HERE AND GRANDDAUGHTER VISITING TODAY. DENIES NEED FOR PRN PAIN MED TODAY.
[2017-10-01 20:00] VITALS: BP 137/73
--- NOTE | 2017-10-02 01:24 | NUR ---
ASSUMED CARE @ -SAT.OUT OF ROOM W/ . TOOK PATIENT ON W/C & BOTH WATCHED TV IN SUN ROOM.BACK IN ROOM @ 1939 & ASSISTED ON RECLINER. CHAIR ALARM PUT ON @ 1939.POSTERIOR SPLINT IN PLACE RUE WRAPPED W/ ANGEL BANDAGE.TUBIGRIPS IN PLACE LE'S.NWB RUE OBSERVED.WEARS PULL UPS.SLING RUE WHEN IN BED.RUE ELEVATED ON A PILLOW.BED ALARM PUT ON @ 2132.SEE PAIN MANAGE- MENT @ 2150.PRN RAMÍREZ BONNER 2 CAPS ORAL GIVEN ALSO @ 2150.MD-101/MIN @ 1999.MD RE-CHECKED @ 2315-98/MIN-IRREG.ON HOURLY ROUNDS.SOCIAL AND HUMAN SERVICES ASSISTANT DOING ODD HOUR ROUNDS.
--- NOTE | 2017-10-02 05:11 | NUR ---
SLEEPING SINCE -10/02-TUESDAY.BRP W/ SBA X3.TOOK ALL APPLE JUICE W/ TWO PACKAGES TO CRACKERS HS SNACKS.
[2017-10-02 07:30] VITALS: BP 134/66
--- NOTE | 2017-10-02 14:34 | NUR ---
ASSUMED CARE AT 0730. ALERT ORIENTED PLEASANT COOPERATIVE, HX OF RT. HUMERUS FX NWBRUE. ANGEL WRAP TO RUE FROM HAND TO SHOULDER. SLIGHT BRUISING NOTED ABOVE ANGEL WRAP ON UPPER ARM. DENIED NEED FOR PRN PAIN MED THIS A.M. FEEDS SELF WITH SET UP. USES CALL LIGHT APPROPRIATELY FOR ASSIST, BED CHAIR ALARM FOR PT. SAFETY. PT.S FRIEND HERE WASHED PTS. HAIR USING HAND HELD SHOWER. PT. AMBULATED TO AND FROM SHOWER AND TO DR Simon 2 FOR LUNCH MEAL. HERE VISITING. MEDICATED LATER MORNING WITH TRAMADOL FOR RT. ELBOW PAIN PER PT. REQUEST. DRESSINGS D/I TO RT. CORLEY AND TUBIGRIPS [address]
[2017-10-02 20:00] VITALS: BP 128/62
--- NOTE | 2017-10-03 01:14 | NUR ---
ASSUMED CARE @ 1919-10/02-SUN.SITS IN RECLINER W/ LE'S UP. VISITING @ THIS TIME.CHAIR ALARM ALREADY ON @ 1919.TUBIGRIPS IN PLACE LE'S.POSTERIOR SPLINT RUE SECURED W/ ANGEL BANDAGE.NWB RUE OBSERVED.WEARS PULL UPS.HOB UP IN BED.RUE UP IN A SMALL PILLOW.WEARS SLING RUE WHEN IN BED.BED ALARM PUT ON @ 2214.WANTS ONLY SIDERAILS X3 UP.TUBIGRIPS SMOOTHENED @ 2214.SEE PAIN MANAGEMENT @ 3.C/O INDIGESTION @ 0031.PRN MYLANTA 15 ML TAKEN ORALLLY.ON HOURLY ROUNDS.
--- NOTE | 2017-10-03 05:08 | NUR ---
SLEEPING SINCE -10/03-TUESDAY.EDEMA+1 PITTING LEFT FOOT.TURNS SELF @ NIGHT. TOOK ALL HOT TEA W/ 2 PACKAGES TO CRAKERS HS SNACKS.RELIEVED OF INDIGESTION @ 0130.BRP W/ SBA X 6.
--- NOTE | 2017-10-03 05:11 | NUR ---
NURSE'S NOTES ENTERED @ [id number] END OF SHIFT PROGRESS NOTES.
--- NOTE | 2017-10-03 07:07 | NUR ---
SEE 2ND PAIN MANAGEMENT @ 3805 FOR PAIN RIGHT SHOULDER.
[2017-10-03 07:30] VITALS: BP 135/86
--- NOTE | 2017-10-03 12:52 | NUR ---
I have reviewed the documentation by DONALD GALVAN from 10/03/17 to 10/03/17 and I concur with it. SUKHJINDER MUNGUIA
--- NOTE | 2017-10-03 14:52 | NUR ---
ASSUMED CARE AT 0730. ALERT ORIENTED PLEASANT COOPERATIVE. HX OF RT. HUMERUS FX NWBRUE. WEARING ANGEL WRAP RUE.TRANSFERS WITH SBA G BELT CANE AND AMBULATES TO BR TO VOID AND HAD SMALL BM ABLE TO DO HYGEINE AND CLOTHING ADJUSTMENTS. STATES RT. ELBOW PAIN IS GONE NOW AFTER TRAMADOL WAS GIVEN EARLIER BY [employer] ANALYT[employer] LEAD. FEEDS SELF APPETITE GOOD. USES CALL LIGHT APPROPRIATELY FOR ASSIST CHAIR AND BED ALARM FOR PT. SAFETY.
[2017-10-03 19:55] VITALS: BP 131/70
--- NOTE | 2017-10-03 22:22 | NUR ---
ASSUMED CARE AT 1930. PATIENT S/P RT FX HUMERUS. RESTING IN CHAIR AT PRESENT. UP WITH SBA, GAIT BELT, STEADYING ASSIST AT TIMES. RT POSTERIOR SPLINT/ANGEL C/D/I. SLING USE ENCOURAGED. ORTHO CALLED STATING THAT HE WILL COME IN THIS AM AND CHANGE THE DRESSING AND REMOVE THE SPLINT. TWO ISLAND DRESSINGS AND TWO MIPILEX AG DRESSINGS AT BEDSIDE PER HIS REQUEST. TAKES PILLS WHOLE WITH WATER. VOIDS PER TOILET. DRESSINGS TO RT CORLEY C/D/I. TUBIGRIP REMOVED AT HS. HEELS OFFLOADED WITH PILLOWS. MEDICATED WITH IBUPROFEN AT HS PER REQUEST. TURNS SELF EASILY IN BED. BED ALARM ON. CALL LITE IN REACH. HOURLY ROUNDS CONTINUE.
--- NOTE | 2017-10-04 05:20 | NUR ---
SLEPT MOST OF THE NIGHT EXCEPT GETTING UP TO VOID. SLING REMAINS ON, RUE SUPPORTED ON PILLOWS. TURNS SELF. UP WITH CANE, TRIES TO COMPLETE TASKS TOO QUICKLY AND NEEDS REMINDERS TO SLOW DOWN. PATIENT'S HAS BEEN HERE SINCE 0400 BECAUSE PATIENT TOLD HIM THAT IS WHEN PHYSICIAN WOULD COME DESPITE THIS NURSE WRITING DOWN THAT THE PHYSICIAN WOULD NOT LIKELY BE HERE BEFORE 0500. SLEEPING ON COUCH PRESENTLY. PATIENT HAS NO FURTHER C/O PAIN. HOURLY ROUNDS CONTINUE. BED ALARM ON. CALL LITE IN REACH.
[2017-10-04 07:30] VITALS: BP 151/74
--- NOTE | 2017-10-04 16:53 | NUR ---
ASSUMED CARES OF PT AT 0700. PT A&O X4, HRRR PER AUSCULTATION, LCTAB, VSS ON RA, AFEBRILE, PT DENIES PAIN AT THIS TIME. CONTINENT OF BOWEL AND BLADDER, BM 10/04/17. DRESSINGS FOR ST ON RT LEG C/D/I, NWB RUE, SLING PER DR. MULLEN. TUBIGRIPS RT LEG. PT PARTICIPATED IN THERAPIES SCHEDULED, PT UP TO DINING ROOM FOR MEALS. PT STABLE, POSSIBLE D/C ON Tuesday10/06/17-PENDING. FALL PRECAUTIONS IN PLACE, CALL BUTTON AND PERSONAL ITEMS IN PT REACH. PT USES CALL BUTTON APPROPRIATELY. PT PROGRESSING TOWARDS GOAL. WILL CONTINUE TO MONITOR PT PROGRESS AND STATUS.
--- NOTE | 2017-10-04 19:00 | NUR ---
REPORT TO CUTTING MACHINE TENDER FOR CONTINUED CARES. PT REMAINS STABLE, UP WITH CANE. SPOUSE AT SIDE MOST OF SHIFT. PT PARTICIPATED IN THERAPIES, UP TO DINING ROOM FOR MEALS. PT PROGRESSING TOWARDS GOAL. A&O X4, COOPERATIVE, PLEASANT.
[2017-10-04 19:38] VITALS: BP 116/73
--- NOTE | 2017-10-04 20:20 | NUR ---
SITTING UP IN CHAIR IN DINING ROOM VISITING WITH . AMBULATED FROM THE DINING ROOM TO ROOM 320 WITH SBA, GAITBELT, CANE. TYLENOL GIVEN FOR C/O HEADACHE. RLE DRESSING DRY/INTACT. NWB TO RIGHT ARM WHICH IS IN A SLING. TOOK MEDS WHOLE WITH WATER.
--- NOTE | 2017-10-05 05:24 | NUR ---
RESTED QUIETLY. UP X ONE TO THE BATHROOM DURING THE NOC. IBUPROFEN GIVEN AT HS FOR C/O RIGHT ARM PAIN. NO FURTHER C/O PAIN. RIGHT ARM IN A SLING AND ELEVATED ON A SMALL PILLOW. HOURLY ROUNDING IN PROGRESS.
[2017-10-05 08:37] VITALS: BP 109/64
[2017-10-05 16:16] VITALS: BP 109/64
[2017-10-05 16:26] VITALS: BP 109/64
--- NOTE | 2017-10-05 16:37 | NUR ---
BJ called pt dtr Elizabeth per dtr request and reviewed team conference summary and scheduled family training. Best time for dtr is 2 pm tomorrow, 10/06. BJ met with pt to review team conference with pt. Plan for pt to dc home on 10/06 after family training. Home with HH services, pt preference for [facility]. SW faxed referral and final orders and med list to [facility]. Pt requested single point cane be ordered and SW tried [facility] who was unable to provide; [facility] called [facility] who accepted order and will deliver cane to pt room prior to pt dc. Pt dtr wanted pt to have appt with Dr Sánchez to follow up on bone density and an appt with Dr. Loya...pt dtr believes appt should be with Dr. Loya not Dr Herrera as the pt and pt would believe. BJ will provide info on follow up appts to nursing. SW to remain available to assist with finalizing safe dc plans. No other known needs or concerns at this time.
[2017-10-05 20:27] VITALS: BP 134/64
--- NOTE | 2017-10-05 23:29 | NUR ---
ASSUMED CARE AT 193. PATIENT S/P RT HUMERUS FRACTURE. RUE IN SLING AND SUPPORTED WITH PILLOWS. RT FINGERS MOVE WELL, GOOD CAP REFILL AND DENIES TINGLING OR NUMBNESS. IN CHAIR WITH LEGS DEPENDENT UNTIL ABOUT 2199. REFUSED TO ELEVATE LEGS WHILE IN RECLINER DESPITE EDUCATION ABOUT DEPENDENT EDEMA. NOT WEARING TUBIGRIPS EITHER. BILAT ANKLES 2+ PITTING EDEMA. UP WITH SBA, GAIT BELT, CANE. NEEDS REMINDERS AT TIMES TO SLOW DOWN WHILE DOING TASKS. C/O INDIGESTION, GIVEN [place] AND TO CRACKERS WITH RELIEF. TOOK ONLY ONE IBUPROFEN PER REQUEST. RT CORLEY DRESSINGS C/D/I. TAKES PILLS WHOLE WITH WATER WITHOUT DIFF. TURNS EASILY IN BED. HOURLY ROUNDS CONTINUE. BED ALARM ON. CALL LITE IN REACH.
--- NOTE | 2017-10-06 06:10 | NUR ---
SLEPT MOST OF THE NIGHT AFTER ABOUT 0. NO FURTHER C/O INDIGESTION. VOIDED PER TOILET. USED CALL LITE APPROPRIATELY. HOURLY ROUNDS CONTINUE, CALL LITE IN REACH. BED ALARM ON.
[2017-10-06 08:00] VITALS: BP 137/71
[2017-10-06 08:47] VITALS: BP 109/64
--- NOTE | 2017-10-06 10:40 | NUR ---
AM ASSESSMENT AND VITAL SIGNS COMPLETED DOCUMENTED. PT HAS BEEN WORKING WITH THERAPISTS THIS AM AND IS PLANNING TO GO HOME AFTER FAMILY TRAINING THIS AFTERNOON. RIGHT ARM INCISION REMAINS GLOBAL COMPENSATION MANAGER, WELL APPROXIMATED, NO DRAINAGE. PT ENCOURAGED TO ELEVATE HER LEGS WHEN SITTING IN THE RECLINER. FALL PRECAUTIONS AND HOURLY ROUNDING IN PLACE.
--- NOTE | 2017-10-06 15:08 | NUR ---
PT HAS MET DISCHARGE GOALS AND FAMILY TEACHING HAS BEEN COMPLETED BY ST, OT AND PT. PT AND HER BELONGINGS TRANSPORTED TO THE EXIT, ASSISTED INTO CAR, DISCHARGED HOME WITH HER .
--- NOTE | 2017-10-06 16:33 | NUR ---
I have reviewed the documentation by DONALD GALVAN from 10/06/17 to 10/06/17 and I concur with it. SUKHJINDER MUNGUIA
--- NOTE | 2017-10-25 14:42 | D ---
[facility] [address] [place] [address] DISCHARGE SUMMARY Name: KYREE BRAND Room: [address] IN .R.#: [id number] Admission: 09/22/17 Attend Phys: Alana Horn DO Discharge: 10/06/17 Date of : 40 Report #: [id number] THIS REPORT FOR: //name// CC: Alana Medina [place] DISCHARGE DIAGNOSES: Right humerus fracture status post open reduction and internal fixation. DISCHARGE DISPOSITION: To home with home health PT, OT, nursing, social work speech therapy and an aide. She will follow with Orthopedic Surgery within 1 week and primary care physician within 1 week. It should be noted that her nonweightbearing status was lifted when her cast was removed. She is now weightbearing as tolerated. She does have some balance changes, but is progressing with physical and occupational therapy. Notifications for physician were given. She will maintain a heart healthy diet, monitor weight gain, maintain fall precautions. She does need some supervision at home. MEDICATIONS: Reviewed, reconciled by myself and are available in the MAR. DISCHARGE PHYSICAL EXAMINATION: GENERAL: Alert, oriented, no apparent distress. VITAL SIGNS: Reviewed and are stable. HEENT: Head atraumatic, normocephalic. Pupils equal, round, reactive. ABDOMEN: Soft, nontender, nondistended. NEUROLOGICAL: Cranial nerves 2-12 are grossly intact. No focal neuro deficits, 5/5 strength in bilateral upper and lower extremities. SKIN: Warm and dry, no rashes or lesions noted. EXTREMITIES: There is noted to be decreased range of motion in the right upper extremity. <ELECTRONICALLY SIGNED> By: Alana Horn DO 10/25/17 1442 [id number] 1910Alana Horn DO /nt
--- NOTE | 2017-10-25 14:42 | H ---
[place] [address] HISTORY AND PHYSICAL Name: KYREE BRAND Room: [address] IN [facility].#: [id number] Admission: 09/22/17 Attend Phys: Alana Horn DO Discharge: 10/06/17 Date of : 40 Report #: [id number] THIS REPORT FOR: //name// CC: Alana Uribelando DATE OF SERVICE: 09/22/2017 HISTORY OF PRESENT ILLNESS: This is a female admitted to inpatient rehabilitation to facilitate safe discharge home, status post right humeral fracture postop day 1, sustained 2 weeks ago, admitted after surgery for placement as she was nonweightbearing in the right upper extremity, had alterations in activities of daily living and is also right hand dominant. Previous level of function was independent to modified independent with activities of daily living. Current level of function is minimum to moderate assistance of one, depending on therapy, activity and time of day. She has needs in physical and occupational therapy. No changes since the preadmission screening. Estimated length of stay is 7-14 days with discharge disposition to the home setting where she has supportive family. PAST MEDICAL HISTORY: Abdominal pain, GERD, B cell lymphoma, dehydration, elbow fracture on the right, facial laceration, hematoma, history of pulmonary embolism, history of right leg DVT, skin tear, and small-bowel obstruction. ALLERGIES: ANGEL INHIBITORS, HYDROCODONE, MORPHINE, PENICILLIN, SULFA, AND CODEINE. MEDICATIONS: Reviewed, reconciled by myself and are available in the MAR. SOCIAL HISTORY: No tobacco, alcohol or illicit drug use. FAMILY HISTORY: Heart disease. REVIEW OF SYSTEMS: A 14-point review of systems is done today, is negative except as mentioned in the HPI, specifically no fever, chest pain, shortness of breath, abdominal pain or distention. PHYSICAL EXAMINATION: GENERAL: Alert, oriented, in no apparent distress. VITAL SIGNS: Reviewed and are stable. HEENT: Head: Atraumatic, normocephalic. Pupils equal, round, reactive. ABDOMEN: Soft, nontender, nondistended. NEUROLOGIC: Cranial nerves 2-12 are grossly intact. No focal neuro deficit. 5/5 strength in the bilateral upper and lower extremities. SKIN: Warm and dry. [place] [address] HISTORY AND PHYSICAL Name: KYREE BRAND Room: [address]#: [id number] Admission: 09/22/17 Attend Phys: Alana Horn, Discharge: 10/06/17 Date of : 40 Report #: [id number] ASSESSMENT: 1. Status post fracture. 2. Alterations in activities of daily living. 3. Multiple medical comorbidities requiring acute daily medical care. PLAN: 1. Admission to inpatient rehabilitation. 2. PT, OT, speech and language, case management, nursing, and HIMS to make evaluations and recommendations. 3. Plan of care is pending. 4. We will team her weekly and make changes to plan of care as needed. <ELECTRONICALLY SIGNED> By: Alana Horn DO 10/25/17 1442 1826 1912Alana Horn DO /nt
--- NOTE | 2017-10-25 14:42 | PLAN ---
[address] [address] REHAB UNIT PLAN OF CARE Name: KYREE BRAND Room: [address] IN [facility]#: [id number] Admission: 09/22/17 Attend Phys: Alana Hron DO Discharge: 10/06/17 Date of : 40 Report #: [id number] THIS REPORT FOR: //name// CC: Alana Sánchez This is a 77-year-old female who presented to inpatient rehabilitation to facilitate safe discharge home status post right humeral fracture with nonweightbearing on the right upper extremity as she is also a right hand dominant female. Previous level of function was independent with activities of daily living. Current level of function is minimum to moderate assistance depending on therapy, activity and time of day. She does have ongoing medical issues, also requiring daily medical care including B cell lipoma, dehydration, fever, pulmonary embolism on the right and a DVT in the right lower extremity. She has also had a bowel obstruction. Estimated length of stay is 12-14 days with discharge disposition to home setting with supportive family. MEDICAL PROGNOSIS: Good. REHABILITATION PROGNOSIS: Good. Physical therapy will see the patient 60-90 minutes per day, 5 days per week, working on upper and lower body strength, balance, coordination, navigation. Occupational therapy will work with the patient 60-90 minutes per day, 5 days per week, working on upper and lower body strength, balance, coordination, navigation, bathing, dressing, and toileting. Speech language pathology will evaluate the patient and do some simple testing to this see if there are any cognitive deficits, given her age and previous level of independence. This is an overall plan of care, may change from time to time, we will team weekly and make changes to plan of care as needed. <ELECTRONICALLY SIGNED> By: Alana Horn DO 10/25/17 1442 1255 [id number] Horn DO /nt
== END 2017-10-06 15:11 | disposition home health service (06) | DRG 563 ==
LOC: M.REH 16:40
PROVIDERS: ADMIT Physical Medicine & Rehabilitation
DX: S42.411A Displaced simple supracondylar fracture without intercondylar fracture of right humerus, initial encounter for closed fracture (principal); S42.441A Displaced fracture (avulsion) of medial epicondyle of right humerus, initial encounter for closed fracture; S42.461A Displaced fracture of medial condyle of right humerus, initial encounter for closed fracture; K21.9 Gastro-esophageal reflux disease without esophagitis; I10 Essential (primary) hypertension; Z96.653 Presence of artificial knee joint, bilateral; R53.81 Other malaise; R05 Cough; Z86.711 Personal history of pulmonary embolism; Z86.718 Personal history of other venous thrombosis and embolism; Z79.01 Long term (current) use of anticoagulants; Z88.6 Allergy status to analgesic agent; Z88.0 Allergy status to penicillin; Z88.2 Allergy status to sulfonamides; Z88.8 Allergy status to other drugs, medicaments and biological substances; Z79.899 Other long term (current) drug therapy; Z90.49 Acquired absence of other specified parts of digestive tract; Z90.710 Acquired absence of both cervix and uterus; W19.XXXA Unspecified fall, initial encounter; Y93.89 Activity, other specified; Y92.89 Other specified places as the place of occurrence of the external cause; Y99.8 Other external cause status; Z82.49 Family history of ischemic heart disease and other diseases of the circulatory system; E86.0 Dehydration; R50.9 Fever, unspecified; R26.9 Unspecified abnormalities of gait and mobility

== ENCOUNTER 2018-02-27 11:42 | Inpatient (IN) | payer MEDICARE, OTHER ==
[~2018-02-27] VITALS: Ht 165.1 cm; Wt 180.5 kg
[~2018-02-27 11:42] MED LIST changes: +METAMUCIL1 EAC1 PO; +MILK OF MA2400 MG/10 PO; +PROTONIX40 M2 PO; +THERAGRAN-M PR1 EAC1 PO; +XARELTO10 MG PO
[2018-02-27 11:48] VITALS: BP 130/66
[2018-02-27] MEDS ORDERED: MACROBID 100 M100 M2 PO (12:05)
[2018-02-27] MEDS ORDERED: ZANTAC 150MG T150 MG PO (12:06)
[2018-02-27] MEDS ORDERED: LOMOTIL TABLET1 EACH PO (12:06)
[2018-02-27] MEDS ORDERED: LEXAPRO 10 MG T10 M2 PO (12:07)
[2018-02-27 12:27] LABS: HEMATOCRIT 32.7 % (37.0-47.0)
[2018-02-27 12:29] LABS: HEMOGLOBIN 10.8 gm/dL (12.0-15.0); MCH 30.9 pg (26.0-34.0); MCHC 33.1 g/dL (28.0-37.0); MCV 93.5 fL (80.0-100.0); MPV 8.7 fl. (7.2-11.1); NUCLEATED RBCS 0 /100WBC; RDW-CV 14.5 % (10.5-14.5)
[2018-02-27 12:34] LABS: CALCIUM 9.9 mg/dL (8.5-10.1); CREATININE 0.8 mg/dL (0.6-1.3); POTASSIUM 3.7 mmol/L (3.5-5.1)
[2018-02-27 12:39] LABS: ALBUMIN 3.3 g/dL (3.4-5.0); TOTAL BILIRUBIN 0.6 mg/dL (<0.1-1.0); TOTAL PROTEIN 6.1 g/dL (6.4-8.2)
[2018-02-27 12:45] LABS: PLATELET COUNT* 20 thou/uL (150-400); WBC 0.6 thou/uL (4.0-11.0)
[2018-02-27 13:28] LABS: ABSOLUTE LYMPHOCYTES 0.3 thou/uL (0.8-5.3); ABSOLUTE MONOCYTES 0.1 thou/uL (0.0-1.2); ABSOLUTE NEUTROPHILS 0.2 thou/uL (1.6-8.1)
[2018-02-27 13:32] LABS: ANISOCYTOSIS Occasional
[2018-02-27 15:46] VITALS: BP 138/65
[2018-02-27 16:00] VITALS: BP 135/88
--- NOTE | 2018-02-27 18:53 | NUR ---
RECEIVED REPORT FROM EDGARD IN ED AND ASSUMED CARE OF PT @ 1600.PT IS A/O,VSS,TRACING SR ON THE MONITOR.LUNG SOUNDS ARE CLEAR.LAST BM WAS TODAY.IV LEFT AC PATENT AND SALINE LOCKED.PT IS CALM AND COOPERATIVE WITH NO C/O PAIN AT TIME OF ASSESSMENT.PT IS UP SBA TO BATHROOM.NEUTROPENIC ISOLATION INITIATED.PICTURES TAKEN OF WOUNDS.MRSA SWAB COLLECTED.HOURLY ROUNDING COMPLETED FOR PT SAFETY.CALL LIGHT WITHIN REACH.WILL CONTINUE TO MONITOR FOR DURATION OF SHIFT.
[2018-02-27 20:00] VITALS: BP 140/85
[2018-02-28] VITALS (7 sets, daily range): BP systolic 133–155; BP diastolic 66–100
--- NOTE | 2018-02-28 04:51 | NUR ---
ASSUMED PATIENT CARE AT 1900. PATIENT ALERT AND ORIENTED TIMES FOUR. AT BEDSIDE AT THIS TIME. ABLE TO AMBULATE INDEPENDENTLY AND INDEPENDENT WITH BED MOBILITY. IV PATENT TO ABT'S. MINOR COMPLAINT OF A BARBOZA, ORAL MEDICATION GIVEN. NO QUESTIONS ABOUT PLAN OF CARE. COOPERATIVE WITH ALL TREATMENTS AND CARES. CHURCH SUPERVISOR AND HOURLY ROUNDING COMPLETED DOCUMENTED
[2018-02-28 04:57] LABS: HEMATOCRIT 27.8 % (37.0-47.0); HEMOGLOBIN 9.2 gm/dL (12.0-15.0); MCH 30.9 pg (26.0-34.0); MCHC 33.1 g/dL (28.0-37.0); MCV 93.5 fL (80.0-100.0); MPV 8.7 fl. (7.2-11.1); RBC 2.97 mil/uL (4.20-5.00); RDW-CV 14.4 % (10.5-14.5)
[2018-02-28 05:17] LABS: CALCIUM 8.7 mg/dL (8.5-10.1); CREATININE 0.7 mg/dL (0.6-1.3); MAGNESIUM 1.3 mg/dL (1.8-2.4); POTASSIUM 3.4 mmol/L (3.5-5.1)
[2018-02-28 05:22] LABS: WBC 0.6 thou/uL (4.0-11.0)
--- NOTE | 2018-02-28 10:17 | NUR ---
RECEIVED REPORT FROM ELISA AND ASSUMED CARE OF PT @ 3499.PT IS A/O,VSS,TRACING SR WITH 1ST DEGREE ON THE MONITOR.LUNG SOUNDS ARE CLEAR.LAST BM WAS YESTERDAY.IV LEFT AC PATENT AND SALINE LOCKED.PT IS CALM AND COOPERATIVE WITH NO C/O PAIN AT TIME OF ASSESSMENT.PT IS UP SBA TO BATHROOM.CALL LIGHT WITHIN REACH.WOUND CARE SAW PT AND PUT TUBE MIXING PAN TENDER ON LEFT LEG,WITH ORDERS FOR WOUND CARE.NEUTROPENIC PRECAUTIONS MAINTAINED.WILL CONTINUE TO MONTIOR.
--- NOTE | 2018-02-28 11:39 | NUR ---
WOUND CARE NOTE: CONSULT RECEIVED FOR BLISTERS L TOES PATIENT PRESENTS WITH AN INTACT SERUM FILLED BLISTER TO THE LEFT 2ND AND 3RD TOE EXTENDING ONTO THE METATARSAL HEADS ASSOCIATED WITH THE TOES, DORSAL ASPECT MEASURING 4X4. LEFT LOWER EXTREMITY/FOOT WITH 3-4+ PITTING EDEMA, INFLAMMED. LEFT 1ST METATARSAL HEAD, MEDIAL IS RED, APPEARS TO BE STARTING TO BLISTER. APPLIED LOTION TO INTACT SKIN. APPLIED VASELINE GAUZE TO BLISTER ON TOES. SECURED WITH SIZE G DOUBLE LAYER TUBIGRIP. PATIENT TOLERATED DRESSING CHANGE WELL. EDUCATED PATIENT ON KEEPING LEGS ELEVATED TO ASSIST WITH EDEMA CONTROL, COMMUNICATED UNDERSTANDING. EDUCATED PATIENT ON IMPORTANCE OF NUTRITION, COMMUNICATED UNDERSTANDING. EDUCATED PATIENT ON DRESSING SELECTION, COMMUNICATED UNDERSTANDING. RECOMMEND ELEVATE BLE DOUBLE LAYER TUBIGRIP TO LLE ENCOURAGE GOOD NUTRITION AND HYDRATION
--- NOTE | 2018-02-28 11:39 | CON ---
[address] [address] CONSULTATION Name: KYREE BRAND Room: [address] IN M.R.#: [id number] Admission: 02/27/18 Attend Phys: Carlos Weaver MD Discharge: Date of : 40 Report #: [id number] THIS REPORT FOR: //name// CC: Carlos Uribelando DATE OF SERVICE: 02/28/2018 INFECTIOUS DISEASE CONSULTATION ATTENDING PHYSICIAN: Dr. Weaver. REASON FOR EVALUATION: Left lower extremity inflammatory eruption, likely multifactorial with a component of skin and soft tissue infection/cellulitis. HISTORY OF PRESENT ILLNESS: Chart reviewed, the patient examined. This is a 77-year-old, with extensive medical history, involves 3 separate diagnosis of cancer. Most recently, she describes a skin cancer in the medial aspect of the proximal left lower extremity. 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 Has been undergoing chemotherapy and has she believes, fairly chronic pancytopenia including a white count total of less than 1000. Did undergo procedure over the last couple of weeks where they infused chemotherapy directly into the artery. She has developed increasing inflammation associated with the site, in fact involved the extent of the entire limb with bullous lesion over the dorsal aspect of the foot, appeared to have serous fluid. It is not clear if she has had significant fevers. She has had poor appetite, has not lost weight; however, she believes she has had increasing swelling of lower extremities. It is notable she has chronic lymphedema as a background. She is not overtly toxic. She was started on combination therapy with cefepime and vancomycin. ALLERGIES: LISTED TO PENICILLIN, WHICH CAUSES RASH. SULFA, RASH. MORPHINE, CODEINE, HYDROCODONE, ANGEL INHIBITORS. MEDICATIONS: Vancomycin, famotidine, tramadol, escitalopram, pantoprazole, dicyclomine, amitriptyline, cyanocobalamin, p.r.n. analgesics, antiemetics, cefepime. 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 SOCIAL HISTORY: Nonsmoker, [place] [address] CONSULTATION Name: KYREE BRAND Room: [address]#: [id number] Admission: 02/27/18 Attend Phys: Carlos Weaver MD Discharge: Date of : 40 Report #: [id number] FAMILY HISTORY: Noncontributory. REVIEW OF SYSTEMS: As above. PHYSICAL EXAMINATION: GENERAL: She is alert, cooperative, appears somewhat chronically ill, undernourished. She is lucid, in mild distress. VITAL SIGNS: Temperature 97.6, pulse 93, respirations 18, blood pressure 133/72. SKIN: Warm, dry. HEENT: Unremarkable. NECK: Supple. LUNGS: Clear to auscultation. HEART: Regular. ABDOMEN: Soft, nontender. Does have an erythrodermic-type rash and has some satellite lesions in the lower quadrants that extends on the back and the thigh. There is a more cellulitic type appearing rash involving the site. There is somewhat necrotic appearing lesion in the medial thigh. She says that the site of previous skin cancer actually looks much improved. There is some raised area with dark eschar. Distal lower extremity has marked edema, does have a bullous lesion over the dorsal aspect involving the second, third, fourth digits, appears to be serous in nature. GENITOURINARY: Deferred. RECTAL: Deferred. LABORATORY DATA: Blood cultures sterile thus far. Lactic acid of 1.9. Electrolytes: Sodium 140, potassium 3.4, chloride 110, bicarbonate is 28, BUN and creatinine 12 and 0.7, glucose of 109, estimated GFR of 81. CBC: White count of 0.6, H and H 9.2 and 27.8, platelets of 7 consistent with previous. Venous Doppler showed no evidence of DVT, left lower extremity, although there is a complex fluid collection in the inguinal site from previous surgery, may be postoperative fluid collection, which may be predictable. Liver function is otherwise unremarkable. Albumin of 3.3. Total protein 6.1. ASSESSMENT: Left lower extremity inflammatory eruption, multifactorial, has underlying lymphedema, chronic venous stasis insufficiency with dermatitis, I suspect as well, component of cellulitis. We will continue broad spectrum therapy, certainly a risk given her profound neutropenia. We will add some fluconazole as well for suspected topical dermatitis. We will try some focal Mycolog to see how she does clinically over the course of the next 24-48 hours. Adjust therapy as needed. <ELECTRONICALLY SIGNED> By: Thirery Uribe MD 02/28/18 1139 [id number] [id number] Uribe MD /nt
--- NOTE | 2018-02-28 15:51 | NUR ---
Pt is A&O. Resides at home with her . Normally independent. Pt uses a walker, cane or wc at home for mobility. Hx of [facility]. No hx of SNF. Supportive family that is involved in POC. Following for disposition.
--- NOTE | 2018-02-28 18:00 | NUR ---
VSS,CARDIAC MONITORING IN PLACE WITH NO CHANGES.DENIES PAIN.IV ANTIBIOTICS GIVEN.ONE UNIT OF PLATLETS GIVEN WITH NO COMPLICATIONS.WOUND CARE SAW PT TODAY.ISOLATION MAINTAINED.HOURLY ROUNDING COMPLETED FOR PT SAFETY.CALL LIGHT AND FALL PRECAUTIONS IN PLACE.WILL CONTINUE TO MONITOR.FAMILY HAVE BEEN IN SEVERAL TIMES TODAY.
[2018-03-01] VITALS (7 sets, daily range): BP systolic 110–157; BP diastolic 52–76
--- NOTE | 2018-03-01 04:28 | NUR ---
RECEIVED REPORT AND ASSUMED CARE OF PATIENT AT 1930. MILLED RICE BROKER IN PLACE TRACING SR/ST WITH OCCASIONAL PVCS. ASSESSMENT AND VITALS COMPLETED CHARTED, VSS. PATIENT A&XO4, FORGETFUL AT TIMES NOTED THROUGHOUT THE NIGHT. PATIENT DENIES PAIN AND DISCOMFORT BUT DOES HAVE C/O ITCHING WHERE LEFT HIP RASH IS NOTED. NYSTATIN CREAM APPLIED AND BENADRYL ADMINISTERED WITH RELIEF. PATIENT'S LEFT LEG REMAINS WRAPPED PER WOUND CARE ORDERS. PATIENT UP WITH STANDBY ASSIST TO BATHROOM. FALL PRECAUTIONS IN PLACE DUE TO PATIENT'S RECENT FALLS AND OCCASIONAL FORGETFULNESS. HOURLY ROUNDING OBSERVED. CALL LIGHT WITHIN REACH
[2018-03-01 04:44] LABS: HEMATOCRIT 27.5 % (37.0-47.0); HEMOGLOBIN 9.2 gm/dL (12.0-15.0); MCH 31.1 pg (26.0-34.0); MCHC 33.6 g/dL (28.0-37.0); MCV 92.5 fL (80.0-100.0); MPV 8.2 fl. (7.2-11.1); PLATELET COUNT* 51 thou/uL (150-400); RBC 2.98 mil/uL (4.20-5.00); RDW-CV 14.3 % (10.5-14.5)
[2018-03-01 04:56] LABS: WBC 0.8 thou/uL (4.0-11.0)
[2018-03-01 05:03] LABS: CALCIUM 9.3 mg/dL (8.5-10.1); CREATININE 0.7 mg/dL (0.6-1.3); MAGNESIUM 1.4 mg/dL (1.8-2.4); POTASSIUM 3.7 mmol/L (3.5-5.1)
[2018-03-01 10:48] LABS: ABSOLUTE LYMPHOCYTES 0.5 thou/uL (0.8-5.3); ABSOLUTE MONOCYTES 0.1 thou/uL (0.0-1.2); ABSOLUTE NEUTROPHILS 0.2 thou/uL (1.6-8.1); ANISOCYTOSIS 1+; PLATELET ESTIMATE DECREASED; POIKILOCYTOSIS 1+
--- NOTE | 2018-03-01 11:02 | NUR ---
RECEIVED REPORT FROM LENI AND ASSUMED CARE OF PT @ 8063.PT IS A/O WITH CONFUSION AT TIMES,VSS,TRACING SR ON THE MONITOR.LUNG SOUNDS ARE CLEAR.LAST BM WAS YESTERDAY.IV LEFT FOREARM PATENT AND SALINE LOCKED.PT IS CALM AND COOPERATIVE WITH NO C/O PAIN AT TIME OF ASSESSMENT.PT IS UP SBA.PT LEFT RESTING IN CHAIR WITH CALL LIGHT AND FALL PRECAUTIONS IN PLACE.WILL CONTINUE TO MONITOR.
--- NOTE | 2018-03-01 18:21 | NUR ---
VSS,CARDIAC MONITORING IN PLACE WITH NO CHANGES.PT PAIN MANAGED WELL WITH PO MEDICATIONS.IV ANTIBIOTICS GIVEN.ON MAG REPLACEMENT PROTOCOL.PT SHOWERED IN SHOWER ROOM.ANTIFUNGAL LOTION APPLIED TO LEFT LEG AND TUBE BROADCAST TECHNICIAN REAPPLIED.BLISTER REDRESSED.PT INFORMED OF PLAN OF CARE AND COMMUNICATES UNDERSTANDING.PT WALKS TO BATHROOM WITH SBA.HOURLY ROUNDING COMPLETED FOR PT SAFETY.CALL LIGHT WITHIN REACH AND PT EDUCATED TO CALL WHEN NEEDS ASSISTANCE.WILL CONTINUE TO MONITOR FOR DURATION OF SHIFT.
[2018-03-02 04:11] VITALS: BP 109/71
--- NOTE | 2018-03-02 04:34 | NUR ---
PATIENT PARTIALLY PROGRESSING TOWARDS GOALS: PAIN RELIEVED WITH ONE TIME ADMINISTRATION OF TRAMADOL PER OCT. BLISTER ON LEFT FOOT BECOMING LARGER IN SIZE AND APPEARS TO BE MORE PAINFUL FOR PATIENT TO WALK, PATIENT IS USING HER CANE MORE OFTEN AND HAS UNSTEADY GAIT. PATIENT REMAINS AFEBRILE AND ON ROOM AIR, VSS. RASH TO LEFT HIP IMPROVING WITH NYSTATIN CREAM. MAGNESIUM REPLACED PO THIS SHIFT, REDRAW ORDERED FOR 1000. PATIENT REMAINS ON NEUTROPENIC PRECAUTIONS. HOURLY ROUNDING OSBERVED, CALL LIGHT WITHIN REACH
[2018-03-02 07:45] VITALS: BP 112/61
[2018-03-02 10:09] LABS: HEMATOCRIT 27.4 % (37.0-47.0); HEMOGLOBIN 9.2 gm/dL (12.0-15.0); MCH 31.4 pg (26.0-34.0); MCHC 33.6 g/dL (28.0-37.0); MCV 93.4 fL (80.0-100.0); MPV 7.8 fl. (7.2-11.1); NUCLEATED RBCS 0 /100WBC; RBC 2.93 mil/uL (4.20-5.00); RDW-CV 14.3 % (10.5-14.5)
[2018-03-02 10:19] LABS: PLATELET COUNT* 40 thou/uL (150-400)
[2018-03-02 11:05] LABS: ABSOLUTE EOSINOPHILS 0.1 thou/uL (0.0-0.7); ABSOLUTE LYMPHOCYTES 0.5 thou/uL (0.8-5.3); ABSOLUTE NEUTROPHILS 1.4 thou/uL (1.6-8.1)
[2018-03-02 11:06] LABS: ANISOCYTOSIS 1+; PLATELET ESTIMATE DECREASED; POLYCHROMASIA 1+
[2018-03-02 12:40] VITALS: BP 115/72
--- NOTE | 2018-03-02 13:41 | NUR ---
Pt states that she [place] to [place]. Pt discussed possibility of transferring to in a few days. Pt wants to continue with [facility] at [place]. Following.
[2018-03-02 16:00] VITALS: BP 115/72
--- NOTE | 2018-03-02 17:22 | CON ---
[address] [address] CONSULTATION Name: KYREE BRAND Room: [address] IN .R.#: [id number] Admission: 02/27/18 Attend Phys: Carlos Weaver MD Discharge: Date of : 40 Report #: [id number] THIS REPORT FOR: //name// CC: Carlos Uribelando DATE OF SERVICE: 02/28/2018 REASON FOR CONSULTATION: Febrile neutropenia. REQUESTING PHYSICIAN: Carlos Weaver M.D. HISTORY OF PRESENT ILLNESS: The patient is a 77-year-old woman with history of follicular lymphoma 7 years ago, treated with radiation. Later she had a transformation into diffuse large cell lymphoma, was seen by Dr. Cameron, received chemotherapy. She was doing fine until recently when she developed angioedema in the left limb secondary to radiation. She did not want to have systemic chemotherapy. She was referred to Dr. Pope and had limb perfusion. She is now admitted to the hospital with febrile neutropenia. She has cellulitis. She is on antibiotics. Hematology/Oncology consult is requested. She is sitting in a chair. She is doing well. Does not have complaints of fevers, chills, does not have nosebleeds. PAST MEDICAL HISTORY: Significant for: 1. Non-Hodgkin lymphoma, follicular grade 2. 2. Diffuse large cell lymphoma. 3. PE, history of DVT. 4. History of small-bowel obstruction. REVIEW OF SYSTEMS: See above. PHYSICAL EXAMINATION: GENERAL: Reveals a well-developed, well-nourished elderly female, not in acute distress, sitting in the chair comfortably. VITAL SIGNS: Blood pressure 139/66, heart rate is 98, temperature 98.2, respirations 20. HEENT: Does not reveal thrush. LUNGS: There is no dyspnea. ABDOMEN: Soft. EXTREMITIES: Edema on the left side. Skin pigmentation and skin lesion on the lower leg dorsal surface secondary to angioedema. Leg is covered with dressing. MENTAL STATUS: Alert, oriented x 3. LABORATORY DATA: White count 0.6, hemoglobin 9.2, platelets 7. Sodium 134, potassium 3.4, BUN 12, creatinine 0.7. Urinalysis, [place] [address] CONSULTATION Name: KYREE BRAND Room: [address]#: [id number] Admission: 02/27/18 Attend Phys: Carlos Weaver MD Discharge: Date of : 40 Report #: [id number] ASSESSMENT AND PLAN: 1. Cellulitis. Follow Dr. Uribe's recommendation. 2. Thrombocytopenia secondary to chemotherapy. Agree with transfusion. 3. Neutropenia. Plan to order Neupogen 300 mcg daily for 3 days. 4. Angioedema, status post infusion. Thank you very much for allowing me to participate in care of this patient. <ELECTRONICALLY SIGNED> By: Richard Mcmullen MD 03/02/18 [id number] Mcmullen MD /margarita
--- NOTE | 2018-03-02 17:42 | NUR ---
PATIENT IS ALERT AND ORIENTED TODAY VERY PLEASANT. UP WITH STAND BY AND CANE TO THE RESTROOM. SOME COMPLAINTS OF PAIN IN HEEL, BLISTER ON LEFT FOOT POPPED TODAY, DRESSING CHANGED. VITAL SIGNS HAVE BEEN STABLE ON ROOM AIR. FAMILY HAS BEEN AT BEDSIDE MOST OF TNE DAY. PATIENT HAS BEEN UP TO THE CHAIR MOST OF THE DAY, ENCOURAGED PATIENT TO KEEP FOOT ELEVATED TO HELP WITH SWELLING. CALL LIGHT IS IN REACH, WILL CONTINUE TO MONITOR.
[2018-03-02 20:47] VITALS: BP 134/105
[2018-03-03 04:00] VITALS: BP 93/42
[2018-03-03 04:11] LABS: ABSOLUTE EOSINOPHILS 0.1 thou/uL (0.0-0.7); ABSOLUTE LYMPHOCYTES 0.6 thou/uL (0.8-5.3); ABSOLUTE MONOCYTES 0.5 thou/uL (0.0-1.2); ABSOLUTE NEUTROPHILS 2.6 thou/uL (1.6-8.1); BASOPHILS 0.4 %; EOSINOPHILS 1.8 %; HEMATOCRIT 27.8 % (37.0-47.0); HEMOGLOBIN 9.3 gm/dL (12.0-15.0); LYMPHOCYTES 15.4 %; MCH 31.5 pg (26.0-34.0); MCHC 33.5 g/dL (28.0-37.0); MCV 94.1 fL (80.0-100.0); NUCLEATED RBCS 0 /100WBC; POLYS 69.4 %; RBC 2.96 mil/uL (4.20-5.00); RDW-CV 14.4 % (10.5-14.5); WBC 3.7 thou/uL (4.0-11.0)
[2018-03-03 04:21] LABS: PLATELET COUNT* 42 thou/uL (150-400)
[2018-03-03 04:32] LABS: CALCIUM 9.6 mg/dL (8.5-10.1); CREATININE 0.9 mg/dL (0.6-1.3); MAGNESIUM 1.6 mg/dL (1.8-2.4); POTASSIUM 4.1 mmol/L (3.5-5.1)
--- NOTE | 2018-03-03 06:53 | NUR ---
Pt reports she slept heavily overnight. At times she was difficult to awaken. BP 90s/40s at 0400, and noted to be drowsy/sleepy at the time. At 0600, pt got up to BR. Denied any light-headedness, dizziness, or any other symptoms. No complaints. Lactic acid 2.2 this am. Redraw was just completed, awaiting results. Will continue to monitor.
[2018-03-03 08:00] VITALS: BP 102/48
[2018-03-03] MEDS ORDERED: MINOCIN100 MG PO (09:22)
[2018-03-03 10:13] VITALS: BP 102/48
--- NOTE | 2018-03-03 10:13 | NUR ---
Following for d/c planning needs. Notified [facility] of d/c and faxed orders. No other needs identified.
--- NOTE | 2018-03-03 10:32 | NUR ---
ASSUMED CARE OF PT AT 0730. PT RESTING IN CHAIR WAITING FOR BREAKFAST. PT A&0X4, DENIES ANY PAIN OR SHORTNESS OF BREATH AT THIS TIME. PT IN NEUTROPENIC PRECAUTIONS, PT MED SURG STATUS. ON RA SAT UPPER 90'S. PT AT BEDSIDE. PT UP WITH 1 ASSIST CANE TO BATHROOM. WOUND CARE TO SEE PT TODAY FOR BLISTER THAT POPPED TO LEFT FOOT. ID HERE THIS AM AND TRANSITIONED PT TO PO ANTIBIOTICS. MAGNESIUM BEING REPLACED PER ELECTROLYTE PROTOCOL. POSSIBLE DISCHARGE HOME THIS AFTERNOON. AM ASSESSMENT CHARTED. MEDICATIONS PER OCT. PT REPOSITIONS SELF WITH REMINDERS. HOURLY ROUNDING OBSERVED. BED IN LOW POSITION. CALL LIGHT WITHIN REACH. WILL CONTINUE PLAN OF CARE.
--- NOTE | 2018-03-03 12:37 | NUR ---
WOUND CARE NOTE: REASSESSMENT OF LEFT FOOT BLISTER. NOTIFIED PER PATIENT'S RN OF BLISTER INCREASING IN SIZE AND ULTIMATELY RUPTURING LAST NIGHT. DRESSING REMOVED REVEALING A LARGE AREA OF BULLA X 2 WITH THE CENTER OPEN. AREA NOW MEASURES 7.5X9X0.1. EXTENDING FROM ORIGINAL SITE TO DORSUM OF FOOT AND LATERALLY. PATIENT ADMITS TO TAKING TUBIGRIP OFF LAST NIGHT BECAUSE OF THE BLISTER RUPTURING. UPON ENTERING ROOM, PATIENT WITH BILATERAL LEGS IN DEPENDENT POSITION. EDUCATED PATIENT ON IMPORTANCE OF KEEPING LEGS ELEVATED AND USING COMPRESSION THERAPY. PATIENT COMMUNICATED UNDERSTANDING. OPEN AREA OF BULLA IS PINK, MOIST, DRAINING MODERATE AMOUNTS OF SEROUS FLUID. APPLIED VASELINE GAUZE OVER AREA THEN COVERED WITH ABD TO ASSIST WITH DRAINAGE MANAGMENT. SECURED WITH ROLL GAUZE. CUT NEW DOUBLE LAYER TUBIGRIP AND APPLIED AFTER LOTION WAS APPLIED. PATIENT TOLERATED DRESSING CHANGE WELL. RECOMMEND ELEVATE BLE DAILY DRESSING CHANGES FOLLOW UP IN WOUND CENTER
[2018-03-03 13:55] VITALS: BP 102/48
--- NOTE | 2018-03-03 14:15 | NUR ---
DISCHARGE ORDERS RECEIVED. DISCHARGE INSTRUCTIONS, CARE NOTES, SCRIPTS AND FOLLOW UP APPTS GIVEN TO PT. PT COMMUNICATES UNDERSTANDING OF DISCHARGE TEACHING. IV AND STRUCTURAL IRON WORKER REMOVED. PT DISCHARGED WITH ALL BELONGINGS AND PAPERWORK VIA WHEELCHAIR WITH NURSING STAFF TO CHILD'S OWN PERSONAL VEHICLE.
== END 2018-03-03 14:30 | disposition home health service (06) | DRG 871 ==
LOC: M.ERS 11:42 → M.TBA-ER 14:31 → M.2W 14:31
PROVIDERS: Emergency Medicine Emergency Medical Services; ADMIT Internal Medicine
DX: A41.89 Other specified sepsis (principal); D61.810 Antineoplastic chemotherapy induced pancytopenia; L03.116 Cellulitis of left lower limb; C82.95 Follicular lymphoma, unspecified, lymph nodes of inguinal region and lower limb; D69.59 Other secondary thrombocytopenia; G62.9 Polyneuropathy, unspecified; M79.7 Fibromyalgia; Z96.621 Presence of right artificial elbow joint; Z96.653 Presence of artificial knee joint, bilateral; F32.9 Major depressive disorder, single episode, unspecified; I87.8 Other specified disorders of veins; L30.9 Dermatitis, unspecified; T78.3XXA Angioneurotic edema, initial encounter; I71.4 Abdominal aortic aneurysm, without rupture; M79.81 Nontraumatic hematoma of soft tissue; Z79.899 Other long term (current) drug therapy; Z88.6 Allergy status to analgesic agent; Z88.0 Allergy status to penicillin; Z88.8 Allergy status to other drugs, medicaments and biological substances; Z88.2 Allergy status to sulfonamides; Z90.710 Acquired absence of both cervix and uterus; Z92.3 Personal history of irradiation; Z92.21 Personal history of antineoplastic chemotherapy; Z86.711 Personal history of pulmonary embolism; Z86.718 Personal history of other venous thrombosis and embolism; Z85.828 Personal history of other malignant neoplasm of skin

== ENCOUNTER 2018-05-08 14:38 | Inpatient (IN) | payer MEDICARE, OTHER ==
[~2018-05-08] VITALS: Ht 160 cm; Wt 79.4 kg
[~2018-05-08 14:38] MED LIST changes: +LEXAPRO 10 MG T10 M2 PO; +MACROBID 100 M100 M2 PO; +MINOCIN100 MG PO
[2018-05-08 15:07] VITALS: BP 108/49
[2018-05-08] MEDS ORDERED: XANAX 0.25 MG0.25 MG PO (15:13)
[2018-05-08] MEDS ORDERED: ATIVAN1 MG PO (15:15)
[2018-05-08] MEDS ORDERED: TYLENOL EXTRA500 MG PO (15:16)
[2018-05-08] MEDS ORDERED: MIRALAX17 GM PO (15:17)
[2018-05-08] MEDS ORDERED: INVANZ 1GM/NS 101 GM IV (15:18)
[2018-05-08 15:24] LABS: URINE BILIRUBIN NEGATIVE (Negative); URINE BLOOD NEGATIVE (Negative); URINE CLARITY CLEAR; URINE COLOR YELLOW; URINE GLUCOSE-RANDOM NEGATIVE (Negative); URINE KETONES NEGATIVE (Negative); URINE LEUKOCYTES-REFLEX NEGATIVE (Negative); URINE NITRITE-REFLEX NEGATIVE (Negative); URINE PROTEIN NEGATIVE (Negative); URINE UROBILINOGEN 0.2 E.U./dl (0.2-1.0)
[2018-05-08 15:47] LABS: ANION GAP 4 mmol/L (7-16); BUN 10 mg/dL (7-18); CALCIUM 9.3 mg/dL (8.5-10.1); CHLORIDE 104 mmol/L (98-107); CO2 31 mmol/L (21-32); CREATININE 0.9 mg/dL (0.6-1.3); GLUCOSE 94 mg/dL (70-99); POTASSIUM 3.4 mmol/L (3.5-5.1); SODIUM 139 mmol/L (136-145)
[2018-05-08 15:54] LABS: ALBUMIN 2.8 g/dL (3.4-5.0); ALKALINE PHOSPHATASE 102 U/L (46-116); SGOT 24 U/L (15-37); SGPT 31 U/L (30-65); TOTAL BILIRUBIN 0.4 mg/dL (<0.1-1.0); TROPONIN-I LEVEL <0.06 ng/mL (<0.06)
[2018-05-08 16:10] LABS: ABSOLUTE EOSINOPHILS 0.2 thou/uL (0.0-0.7); ABSOLUTE LYMPHOCYTES 0.8 thou/uL (0.8-5.3); ABSOLUTE MONOCYTES 0.5 thou/uL (0.0-1.2); BASOPHILS 0.9 %; EOSINOPHILS 5.1 %; HEMATOCRIT 31.2 % (37.0-47.0); HEMOGLOBIN 10.1 gm/dL (12.0-15.0); LYMPHOCYTES 17.8 %; MCH 32.4 pg (26.0-34.0); MCHC 32.5 g/dL (28.0-37.0); MCV 99.9 fL (80.0-100.0); MONOCYTES 10.6 %; MPV 8.3 fl. (7.2-11.1); NUCLEATED RBCS 0 /100WBC; PLATELET COUNT* 153 thou/uL (150-400); POLYS 65.6 %; RBC 3.12 mil/uL (4.20-5.00); WBC 4.6 thou/uL (4.0-11.0)
[2018-05-08 20:40] VITALS: BP 138/77
[2018-05-08 20:50] VITALS: BP 119/54
[2018-05-09 09:05] VITALS: BP 128/74
--- NOTE | 2018-05-09 14:13 | EKG ---
[place] [address] ELECTROCARDIOGRAM REPORT Name: KYREE BRAND Sherlyn Room: [address] M.R.#: [id number] Admission: 05/08/18 Attend Phys: Halima Ayon MD Discharge: Date of : 40 Report #: [id number] THIS REPORT FOR: //name// [facility] ED Test Date: 2018-05-08 Test Time: 15:33:02 Pat Name: KYREE BRAND Department: Room: [facility] Gender: F Insulation Professional: Adrian SINGLETON : 1940 Requested By: Mary Iniguez Order Number: [id number] MD: Hawk Castellanos Measurements Intervals [place] Rate: 75 P: [place]: QRS: 2 QRSD: 106 T: 8 QT: 411 QTc: 460 Interpretive Statements sinus rhythm Low voltage, precordial leads Borderline T abnormalities, anterior leads Compared to ECG 09/21/2017 13:40:37 Low QRS voltage now present T-wave abnormality still present Electronically Signed On 05-09-2018 14:13:12 CDT by Hawk Castellanos [email or web address] <ELECTRONICALLY SIGNED> By: Hawk Castellanos MD, FAC 05/09/18 1413 1533 1533 Hawk Castellanos MD, [facility] /EPI
[2018-05-09 17:43] VITALS: BP 158/76
[2018-05-10] VITALS: BP 146/80
[2018-05-10 17:12] VITALS: BP 136/63
[2018-05-10 23:31] VITALS: BP 121/83
[2018-05-11 05:46] LABS: ABSOLUTE EOSINOPHILS 0.2 thou/uL (0.0-0.7); ABSOLUTE LYMPHOCYTES 0.9 thou/uL (0.8-5.3); ABSOLUTE MONOCYTES 0.5 thou/uL (0.0-1.2); ABSOLUTE NEUTROPHILS 1.8 thou/uL (1.6-8.1); BASOPHILS 1.3 %; EOSINOPHILS 6.1 %; LYMPHOCYTES 26.6 %; MCH 31.8 pg (26.0-34.0); MCHC 32.3 g/dL (28.0-37.0); MCV 98.6 fL (80.0-100.0); MPV 7.8 fl. (7.2-11.1); NUCLEATED RBCS 0 /100WBC; PLATELET COUNT* 194 thou/uL (150-400); RBC 2.84 mil/uL (4.20-5.00); RDW-CV 15.9 % (10.5-14.5); WBC 3.5 thou/uL (4.0-11.0)
[2018-05-11 05:58] LABS: ALBUMIN 2.5 g/dL (3.4-5.0); CALCIUM 9.5 mg/dL (8.5-10.1); CREATININE 0.6 mg/dL (0.6-1.3); POTASSIUM 3.5 mmol/L (3.5-5.1); TOTAL BILIRUBIN 0.3 mg/dL (<0.1-1.0); TOTAL PROTEIN 5.3 g/dL (6.4-8.2)
[2018-05-11 07:45] VITALS: BP 128/74
[2018-05-11] MEDS ORDERED: OMEPRAZOLE40 MG PO (17:18)
[2018-05-11 17:41] VITALS: BP 128/74
[2018-05-11 18:11] VITALS: BP 128/74
[2018-05-11] MEDS ORDERED: XANAX 0.25 MG0.25 MG PO (20:40)
--- NOTE | 2018-05-22 09:50 | CON ---
[address] [address] CONSULTATION Name: KYREE BRADN Room: [address] IN .R.#: [id number] Admission: 05/09/18 Attend Phys: Halima Ayon MD Discharge: 05/11/18 Date of : 40 Report #: [id number] THIS REPORT FOR: //name// CC: Halima Uribelando DATE OF SERVICE: 05/10/2018 HISTORY OF PRESENT ILLNESS: This is a 77-year-old female patient on home. No good history is available. She is a poor historian, her is a poor historian and I reviewed the patient's Neurology consultation is requested to evaluate the patient for altered mental status. She indicates it fluctuates. Yesterday, her mentation was pretty bad; today, it is better. She was on Xanax and lorazepam and that has been discontinued. She does not think it was the medication. Yesterday, she was severely confused and she was having some speech difficulty. Today, she is not having. 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 She usually goes to [facility] and her oncologist wanted her to go to the hospital and she wanted to stay to the closest hospital. REVIEW OF SYSTEMS: Indicate that she has been admitted with sepsis and UTI. She had encephalopathy and it looks like at one time, she had a DVT and she had abdominal pain, dehydration, acid reflux disease, generalized weakness. Weakness is still there. That was a relevant 14-point review of systems. She has a prior history of cancer. She has a history of aortic aneurysm. She has a history of lymphoma. She has a history of gallbladder, hysterectomy. She had a bilateral knee replaced. She had an elbow problem for which she had metal there. She has a history of neuropathy. She has a history of fibromyalgia, skin cancer. This was her relevant 14-point review of systems. PAST MEDICAL HISTORY: Positive for cancer. FAMILY HISTORY: Negative for any early age stroke. SOCIAL HISTORY: She lives with her who is here. PHYSICAL EXAMINATION: Indicates she is alert. She is responsive. She can follow simple commands. She is oriented. She knows who the president is. She knows the month and the date. Cranial nerve examination 2-12 looks unremarkable. Speech is back to her baseline. It is difficult to tell the neuromuscular examination because I do not have her baseline. I cannot tell about the strength, but her position sense is intact. Her reflexes are diminished. Her tone looks symmetrical. [id number]-[id number] looks unremarkable. I could not look at the fundus. She is reasonably well-built individual. She does not have any dysmorphic features of eyes, ears and face. Her pulses are difficult to feel. She has no marked edema, but [place] [address] CONSULTATION Name: KYREE BRAND Room: [address] IN .R.#: [id number] Admission: 05/09/18 Attend Phys: Halima Ayon MD Discharge: 05/11/18 Date of : 40 Report #: [id number] the legs. Cardiac examination is unremarkable. No respiratory difficulty or rhonchi was noticed. Blood pressure is 146/80, respirations 17, pulse is 101, temperature is 98.1. LABORATORY DATA: Her WBC count is normal. Sodium is normal. She did have a CT scan of the head on admission, which did not show any acute changes. She does appear to have small vessel disease. IMPRESSION: 1. Encephalopathy. 2. Part of it may be the medication. She was on Xanax and lorazepam. She is better. She does have an abnormal CAT scan. Because of that, we will check an MRI if we can. She has to be cleared by radiologist to get the MRI done. This is because of the metal she has. RECOMMENDATIONS: 1. We will check TSH. 2. Vitamin B12. 3. EEG. 4. MRI if it can be done. 5. Continue to readjust her medication and see how she does. Thank you very much for this referral and if you have any questions, please feel free to contact me. <ELECTRONICALLY SIGNED> By: Antione Garcia MD 05/22/18 0950 1209 [id number] Garcia MD /nt
--- NOTE | 2018-05-22 09:50 | EEG ---
[address] [address] EEG STUDY REPORT Name: KYREE BRAND Room: [address] IN .#: [id number] Admission: 05/09/18 Attend Phys: Halima Ayon MD Discharge: 05/11/18 Date of : 40 Report #: [id number] THIS REPORT FOR: //name// CC: Halima Uribelando DATE OF SERVICE: 05/11/2018 This patient is being evaluated for altered mental status. EEG was done by placing the electrode by standard 10-20 system of electrode placement. Both referential and sequential montages were used for recording. Background activity in this patient's EEG is about 9 Hz and 30 microvolt. It is a symmetrical activity. The patient went to sleep that is associated with bilaterally symmetrical sleep spindle and vertex sharp waves. Throughout the record, some intermixed theta range slowing was noticed throughout the record. IMPRESSION: Moderately abnormal EEG because it is intermixed with theta range slowing on both sides. That is a nonspecific abnormality, which can occur with encephalopathy, effect of psychotropic medication, dementia, etc. Clinical correlation is recommended. <ELECTRONICALLY SIGNED> By: Antione Garcia MD 05/22/18 0950 1323 [id number] Garcia MD /nt
== END 2018-05-11 19:39 | DRG 542 ==
LOC: M.ERS 14:38 → M.3W 18:45 → M.TBA-ER 18:45 → M.3W 20:36
PROVIDERS: Internal Medicine; Physician Assistant Surgical; ADMIT Internal Medicine
DX: C49.9 Malignant neoplasm of connective and soft tissue, unspecified (principal); G93.40 Encephalopathy, unspecified; R65.11 Systemic inflammatory response syndrome (SIRS) of non-infectious origin with acute organ dysfunction; E44.0 Moderate protein-calorie malnutrition; G62.9 Polyneuropathy, unspecified; Z96.621 Presence of right artificial elbow joint; F41.9 Anxiety disorder, unspecified; F32.9 Major depressive disorder, single episode, unspecified; D64.9 Anemia, unspecified; Z90.710 Acquired absence of both cervix and uterus; Z92.3 Personal history of irradiation; Z92.21 Personal history of antineoplastic chemotherapy; Z88.6 Allergy status to analgesic agent; Z88.0 Allergy status to penicillin; Z88.2 Allergy status to sulfonamides; Z88.8 Allergy status to other drugs, medicaments and biological substances; Z79.899 Other long term (current) drug therapy; Z68.31 Body mass index [BMI] 31.0-31.9, adult

== ENCOUNTER 2018-05-11 17:32 | Inpatient (IN) | payer MEDICARE, OTHER ==
[~2018-05-11] VITALS: Ht 160 cm; Wt 76.7 kg
[~2018-05-11 17:32] MED LIST changes: +INVANZ 1GM/NS 101 GM IV
[2018-05-11 20:10] VITALS: BP 141/72
[2018-05-11] MEDS ORDERED: XANAX 0.25 MG0.25 MG PO (20:40)
--- NOTE | 2018-05-12 00:43 | NUR ---
PATIENT ARRIVED PER BED FROM ROOM 312 AT 195. SENIOR ENERGY TRADER FROM [facility] TRANSFERRED PATIENT. ALSO PRESENT. WOUND VAC TO LEFT LEG INTACT WITH RED LIQUID DRAINAGE. PATIENT DENIES PAIN. REHAB ADMISSION TOOL COMPLETED. PATIENT ALERT AND ORIENTED X 4. DID OWN HS CARES AT SINK. 3+ LEFT LEG EDEMA NOTED. SWALLOW MEDICATIONS WHOLE WITH WATER.
--- NOTE | 2018-05-12 05:07 | NUR ---
UP X 3 TO BEDSIDE COMMODE WITH ASSIST OF ONE TO VOID. DOES OWN HYGIENE AND ABLE TO PULL DEPENDS UP AND DOWN. NO COMPLAINTS VOICED. HOURLY ROUNDING IN PROGRESS.
[2018-05-12 06:04] LABS: HEMATOCRIT 27.2 % (37.0-47.0); HEMOGLOBIN 8.9 gm/dL (12.0-15.0); MCH 32.1 pg (26.0-34.0); MCHC 32.6 g/dL (28.0-37.0); MCV 98.4 fL (80.0-100.0); MPV 7.9 fl. (7.2-11.1); RBC 2.77 mil/uL (4.20-5.00); RDW-CV 15.9 % (10.5-14.5); WBC 2.8 thou/uL (4.0-11.0)
[2018-05-12 06:23] LABS: CALCIUM 9.2 mg/dL (8.5-10.1); CREATININE 0.6 mg/dL (0.6-1.3); POTASSIUM 3.5 mmol/L (3.5-5.1)
[2018-05-12 08:09] VITALS: BP 118/71
--- NOTE | 2018-05-12 09:47 | NUR ---
DR BROWNING CALLED THIS AM STATED HE SIGNED OFF ON PATIENT ON ACUTE SIDE, DOES NOT NEED TO SEE HER ON REHAB SIDE
--- NOTE | 2018-05-12 11:03 | NUR ---
WOUND CARE NOTE: CONSULT RECEIVED FOR WOUND VAC TO LEFT LEG. PATIENT KNOWN TO ME FROM INPATIENT STAY. VAC FUNCTIONING WELL, HAD A LARGE AMOUNT OF SEROSANGUINEOUS DRAINAGE IN CANISTER. STOPPED VAC AND REMOVED DRESSING. CLEANSED WOUND, PATTED DRY. WOUND MEASURES [id number]. MOIST, RED, GRANULAR WOUND BED TO 85% OF WOUND 15% OF WOUND BED WITH YELLOW, MOIST, ADHERENT SLOUGH TISSUE. GENEVA-WOUND INTACT. SKIN PREPPED. CUT BLACK FOAM TO FIT WOUND BED. DRAPED. GOOD SEAL OBTAINED AT 125MMHG. PATIENT TOLERATED WELL, JUST HAD PAIN WITH REMOVAL OF FOAM AND PACKING. PATIENT REAPPLIED PANTS AND SHOES WITH JUST STANDBY ASSIST. ALSO HAD STANDBY ASSIST WHEN AMBULATING WITH CANE TO RECLINER. RECOMMEND ELEVATE BLE WHEN ABLE ENCOURAGE GOOD NUTRTION/HYDRATION M-W- DRESSING CHANGES
--- NOTE | 2018-05-12 11:33 | NUR ---
SW met with pt to complete initial assessment, introduce self, and SW role on inpt rehab unit while pt was in therapy at the time of assessment. Pt lives at home with her . Pt has walker, cane, wound vac. Pt has hx with [facility]. Pt dtr, Elizabeth, is supportive and involved in dc planning as well. Pt known to SW from recent stay on med surg and previous admission on inpt rehab as well. Pt to have surgery at after pt rehab stay to gain more strength and stability for the surgery. SW to continue to follow to assist with safe dc planning.
--- NOTE | 2018-05-12 14:23 | NUR ---
PATIENT DISCHARGED TO HOME, ADMITTED WITH LEFT MCA CVA, PATIENT ALERT/ORIENTED, UP MOD I IN ROOM, NO COMPLAINTS OF PAIN, PARTICIPATED IN ALL THERAPIES TO DINING ROOM FOR MEALS, HOURLY ROUNDING COMPLETED. DISCUSSED ALL D/C PAPERWORK WITH PATIENT, ANSWERED ALL QUESTIONS. PATIENT LEFT FLOOR WITH FAMILY TO CAR, ALL BELONGINGS SENT WITH PATIENT.
--- NOTE | 2018-05-12 18:36 | NUR ---
ASSUMED CARE AT 0730 PATIENT ALERT/ORIENTED, UP WITH ASSIST OF ONE AND WALKER WITH GAIT BELT, TRAMADOL GIVEN X1 WITH GOOD RELIEF, WOUND NURSE CHANGED DRESSING TO LEFT LEG THIS AM. PARTICIPATED IN ALL THERAPIES TODAY, TO DINING ROOM FOR MEALS, HOURLY ROUNDING COMPLETED, BED/CHAIR ALARMS IN PLACE, CALL LIGHT IN REACH
--- NOTE | 2018-05-12 18:55 | NUR ---
PATIENTS MACARIO STOPPED BY DESK AND STATED THAT HE SPOKE WITH THE SURGEON AT TODAY AND THAT HE WILL SCHEDULE HER SURGERY AFTER SHE IS DISMISSED FROM OUR REHAB UNIT.
[2018-05-12 20:00] VITALS: BP 123/66
--- NOTE | 2018-05-12 22:43 | NUR ---
ASSUMED CARE AT 1920. PATIENT HAD RECENTLY VOIDED PER TOILET AND WENT TO BED. UP WITH SBA, GAIT BELT, 4 WHEELED WALKER. WOUND VAC IN USE, 125 MM HG SUCTION NOTED. WORKS BETTER WHEN KNEE IS SLIGHTLY BENT, WHICH IS THE POSITION SHE PREFERS LYING IN BED. TAKES PILLS WHOLE WITH WATER. PICC LINE TO RUE FLUSHES WELL. TRAMADOL AT HS WITH GOOD RELIEF. CALL LITE IN REACH. HOURLY ROUNDS CONTINUE. BED ALARM ON. READING BOOK AT THIS TIME.
--- NOTE | 2018-05-13 06:10 | NUR ---
SLEPT MOST OF THE NIGHT, EXCEPT WHEN AWAKE TO VOID PER TOILET. UP WITH SBA, GAIT BELT, SEATED WALKER. WOUNDVAC AT 125 MM HG, DRAINING PINK LIQUID. TURNS SELF. PICC LINE TO RUE FLUSHES WELL. IVPB INFUSING CURRENTLY. MEDICATED WITH APAP FOR HEADACHE WITH GOOD RELIEF. HOURLY ROUNDS CONTINUE. BED ALARM ON. CALL LITE IN REACH.
[2018-05-13 07:00] VITALS: BP 110/55
--- NOTE | 2018-05-13 15:42 | NUR ---
ASSUMED CARE AT 0730. ALERT ORIENTED PLEASANT COOPERATIVE. HX OF ENCEPHALOPATHY AND WOUND VAC TO L THIGH WHERE TUMOR WAS REMOVED. PT. TRANSFERS WITH SBA G BELT WALKER AND AMBULATES TO BR TO VOID. ABLE TO DO HYGEINE AND CLOTHING ADJUSTMENTS. HAS HAD 3 LOOSE STOOLS THIS A.M. REQUESTED LOMOTIL AND WAS ADMINISTERED PER REQUEST. PARTICIPATING IN THERAPIES THROUGHOUT THE DAY. DURING A.M. P.T. SESSION WOUND VAC ALARM SOUNDING LEAK ALARM. NURSING SUPERVISIOR WAS NOTIFIED AND DID NEW TUBING AND SOME EXTRA DRAPES APPLIED BUT STILL CONTINUES TO ALARM EVEN THOUGH IT WAS GETTING SUCTION AND SMALL AMT. DRAINAGE COMING THROUGH THE TUBING. MEDICATED WITH ULTRAM 50 MG. PO AND WOUND VAC DRESSING WAS DCD AND WET SALINE DRESSINGS APPLIED WITH ABDS TILL VAC DRESSING CAN BE REAPPLIED BY WOUND NURSE. TAPED IN PLACE AND WILL APPLY FISH NET TO THIGH TO HELP KEEP DRESSING PROTECTED WHEN DOING CLOTHING ADJUSTMENTS. PICC RT. UPPER ARM PATENT FOR IV ANTIBIOTICS.
--- NOTE | 2018-05-13 18:01 | NUR ---
ANGEL WRAP APPLIED TO L THIGH FISH NET NOT AVAILABLE. PT. AMBULATING TO DR FOR SUPPER MEAL. STILL HERE VISITING HIS . DR. URBINA HERE ROUNDING LATE AFTERNOON. PT. IS FORGETFUL AND DOES KNOW HOW TO TURN CHAIR ALARM OFF.
[2018-05-13 20:00] VITALS: BP 135/51
--- NOTE | 2018-05-13 22:51 | NUR ---
ASSUMED CARE AT 1930. PATIENT RESTING IN RECLINER WITH LEGS UP. REQUESTING TO BATHE BEFORE GOING TO BED BECAUSE SHE DID NOT GET FULL BATH THIS MORNING DUE TO THE FAILURE OF HER WOUND VAC. PATIENT NEEDED TO BE REMINDED TO USE HER WALKER AND NOT WALK AWAY FROM IT DURING CLOTHING SELECTION AND PUTTING USED CLOTHES AWAY. ABLE TO PUT NEW PERIPAD IN PANTIES WITH SETUP, CHANGED INTO GOWN. TOOK OVER AN HOUR TO ACCOMPLISH THIS. DRESSING D/I TO LT THIGH, ANGEL WRAP INTACT. UP WT FOUR WHEELED WALKER, GAIT BELT, AND MUCH CUEING FOR SAFETY. TAKES PILLS WHOLE WITH WATER. PICC LINE TO RUE D/I, FLUSHES WELL. MEDICATED FO PAIN WITH APAP WITH RELIEF. HOURLY ROUNDS CONTINUE. BED ALARM ON. CALL LITE IN REACH.
--- NOTE | 2018-05-14 05:18 | NUR ---
SLEPT MOST OF THE NIGHT, SLEEPING BETTER THAN LAST NIGHT. UP TO VOID TWICE, VOIDS PER TOILET. NOTICED SEROUS DRAINAGE ON LINENS FROM DRESSING. ANGEL WRAP WAS C/D/I. MOD AMOUNT OF DRAINAGE COMING FROM THE CORNER OF THE DRESSING TO LT THIGH. AT THAT TIME, THE ANGEL WRAP WAS C/D/I. INNERMOST LAYERS OF DRESSING MOIST, OUTER LAYERS OF FLUFF 4X4 AND ABDS CHANGED. WRAPPED WITH KERLIX. SECURED WITH ANGEL WRAP. TOLERATED WELL, RETURNED TO BED AND TO SLEEP. PICC LINE FLUSHES WELL. NO C/O PAIN. HOURLY ROUNDS CONTINUE. BED ALARM ON. CALL LITE IN REACH.
[2018-05-14 07:30] VITALS: BP 125/54
[2018-05-14 08:17] LABS: HEMATOCRIT 32.3 % (37.0-47.0); HEMOGLOBIN 10.5 gm/dL (12.0-15.0); MCHC 32.6 g/dL (28.0-37.0); MCV 98.4 fL (80.0-100.0); MPV 8.2 fl. (7.2-11.1); RBC 3.29 mil/uL (4.20-5.00); RDW-CV 15.7 % (10.5-14.5); WBC 6.3 thou/uL (4.0-11.0)
[2018-05-14 08:38] LABS: CALCIUM 9.5 mg/dL (8.5-10.1); CREATININE 0.7 mg/dL (0.6-1.3); POTASSIUM 4.1 mmol/L (3.5-5.1)
--- NOTE | 2018-05-14 15:54 | NUR ---
ASSUMED CARE AT 0730. ALERT ORIENTED BUT FORGETFUL PLEASANT COOPERATIVE. HX OF ENCEPHALOPATHY AND TUMOR REMOVED FROM L THIGH. DRESSING D/I L THIGH WITH ANGEL WRAP. TRANSFERS WITH SBA G BELT WALKER AND AMBULATES TO BR TO VOID AND HAD 3 BMS THIS A.M. HX OF CHRONIC DIARRHEA GAVE LOMOTIL X 2 PER PT. REQUESTS. ONE ACCIDENT WITH URINE IN PANTIES AND GENEVA PAD, ONE BM SOFT UNFORMED IN PANTIES BEFORE REACHING TOILET. DENIES PAIN AND WAS UPSET RE HER ACCIDENTS SOILING CLOTHING. PICC MURPHY PATENT FLUSHES EASILY BUT STAFF COULDNT GET BLOOD DRAW FOR LABS. THIS A.M. IV ANTIBIOTICS GIVEN. MEDICATED WITH TRAMADOL THIS AFTERNOON FOR DRESSING CHANGE L THIGH. HAS HAD VISITORS THIS AFTERNOON. AMBULATED IN HALLS X 1 WITH GRANDSON AND STAFF.
--- NOTE | 2018-05-14 17:52 | NUR ---
LEFT THIGH DRESSING CHANGED AT 1630. PREVIOUS DRESSING HAVE MOD AMOUNT YELLOW COLORED DRAINAGE ON THEM. WOUND BED IS PINK CLEAN APPEARANCE. WET TO MOIST DRESSINGS APPLIED TO WOUND AND ABDS APPLIED. GUAZE ROLL APPLIED AND ANGEL WRAP NEW APPLIED TO LEFT THIGH. FAMILY MEMBERS HERE VISITING THROUGHOUT THE LATE AFTERNOON. BROUGHT PIZZA. EATING IN DR AT SUPPER WITH FAMILY. DENIES REQUESTS.
[2018-05-14 20:00] VITALS: BP 134/58
--- NOTE | 2018-05-15 05:27 | NUR ---
ASSUMED CARE AT 1930. WOUND CARE NURSE REAPPLIED WOUND VAC AND PATIENT WAS RESTING IN BED. WOUND VAC WORKING WELL, WITH SUCTION AT 125 MMHG. VISITED WITH DAUGHTER AND FOR A WHILE BEFORE GOING TO BED. UP WITH SBA, GAIT BELT, CUEING. VOIDS PER TOILET. DID NOT WEAR PERIPAD AT HS AND WAS INCONTINENT ONCE EN ROUTE TO TOILET. PATIENT DOFFED SHORTS AND UNDERWEAR AND DONNED BRIEF FOR THE REST OF THE NIGHT. TURNS SELF IN BED. ABLE TO GET BOTH LEGS INTO BED. TAKES PILLS WHOLE WITH WATER. APAP EXTRA STRENGTH AFTER WOUND VAC APPLICATION, STATED PAIN WAS WORSE LATER, MEDICATED WITH TRAMADOL WITH RELIEF. SEE MAR. PATIENT NEEDED MORE CUEING AFTER TAKING TRAMADOL. HOURLY ROUNDS CONTINUE. BED ALARM ON. CALL LITE IN REACH.
[2018-05-15 07:30] VITALS: BP 117/55
--- NOTE | 2018-05-15 10:36 | NUR ---
SW called and left message with pt in preparation for team conference on Tuesday and requested call back with any questions or comments. SW also left message with pt dtr Elizabeth regarding team conference. Pt dtr provided message back stating that she thought pt was great and that the oncologist tentatively scheduled oncology appt fo if pt is discharged. Pt dtr wanted to check on pt IV abx, pt dtr said she thought pt should be finished with them last Tuesday. SW to follow up and will provide updates as needed.
[2018-05-15 13:12] LABS: URINE BILIRUBIN NEGATIVE (Negative); URINE BLOOD NEGATIVE (Negative); URINE CLARITY CLEAR; URINE COLOR YELLOW; URINE GLUCOSE-RANDOM NEGATIVE (Negative); URINE KETONES NEGATIVE (Negative); URINE LEUKOCYTES-REFLEX NEGATIVE (Negative); URINE NITRITE-REFLEX NEGATIVE (Negative); URINE PROTEIN NEGATIVE (Negative); URINE SPECIFIC GRAVITY 1.015 (1.005-1.030); URINE UROBILINOGEN 0.2 E.U./dl (0.2-1.0)
--- NOTE | 2018-05-15 14:09 | NUR ---
ASSUMED CARE AT 0730. ALERT ORIENTED PLEASANT COOPERATIVE. IS A BIT SLEEPY THIS A.M. TRANSFERS WITH SBA G BELT WALKER AND AMBULATES TO BR TO VOID HAD ONE BM THIS A.M. ABLE TO DO HYGEINE AND CLOTHING ADJUSTMENTS. WOUND VAC PATENT AND FUNCTIONING WELL AT 125MMHG DRESSING L THIGH D/I. HX OF ENCEPHALOPATHY AND L THIGH TUMOR REMOVAL. USES CALL LIGHT APPROPRIATELY FOR ASSIST CHAIR ALARM FOR PT. SAFETY SHE IS A LITTLE FORGETFUL. PARTICIPATING IN THERAPIES. HERE VISITING OFF AND ON THROUGHOUT THE DAY. DR. PADILLA AND DR. GARDNER ROUNDED IV MED AND PO ANTIBIOTIC DISCONTINUED. U/A TO LAB AND WAS NEGATIVE RESULTS.
--- NOTE | 2018-05-15 16:06 | NUR ---
PT. IS DONE WITH THERAPIES FOR THE DAY, REQUESTED TO REST IN BED AND 2 TYLENOL PO GIVEN FOR BACK PAIN RATED A [address] FOR MEALS AMBULATORY.
[2018-05-15 19:45] VITALS: BP 125/57
--- NOTE | 2018-05-15 19:45 | NUR ---
SITTING UP IN DINING ROOM WITH WATCHING THE Endovention GAME. DENIES DISCOMFORT. WOUND VAC TO LEFT THIGH INTACT.
--- NOTE | 2018-05-16 05:26 | NUR ---
RESTED ON/OFF. UP X 4 DURING THE NIGHT TO THE BATHROOM TO VOID. AMBULATES WITH WALKER, GAITBELT, SBA. DOES OWN GENEVA CARE AND CLOTHING ADJUSTMENTS. TAKES MEDICATION WHOLE WITH WATER. RIGHT UPPER ARM SINGLE LUMEN PICC INTACT WITH GOOD BLOOD RETURN. HOURLY ROUNDING IN PROGRESS.
[2018-05-16 07:45] VITALS: BP 138/68
--- NOTE | 2018-05-16 07:53 | CON ---
[address] [address] CONSULTATION Name: KYREE BRAND Room: [address] IN ..#: [id number] Admission: 05/11/18 Attend Phys: Alana Horn DO Discharge: Date of : 40 Report #: [id number] THIS REPORT FOR: //name// CC: Alana Uribelando DATE OF SERVICE: 05/15/2018 INFECTIOUS DISEASE CONSULTATION Date of admission 05/11/2018 to the rehab, although she was admitted to the acute care hospital on 05/09/2018. HISTORY OF PRESENT ILLNESS: Chart reviewed, patient examined. This is a 77-year-old whom I am familiar with, has aggressive sarcoma, has also history of B-cell lymphoma, who has had issues with infection related to left proximal lower extremity skin and soft tissue infections in the setting of a wound. She has had surgeries at that site. She was actually hospitalized outside institution with septicemia, probably urinary tract source I believe and had been discharged on parenteral antimicrobial therapy. However, she was noted to have become increasingly encephalopathic, was readmitted on 05/07/2018, continued on her antibiotics including meropenem parenterally as well as minocycline. She has clearly improved. Denies any significant ongoing issues other than her baseline. Specifically questioned about any pulmonary related difficulties or GI. She states appetite has been fair. Her weight has been stable. No recent fevers. ALLERGIES: LISTED TO PENICILLIN, SULFA, MORPHINE, CODEINE, HYDROCODONE, ANGEL INHIBITORS. CURRENT MEDICATIONS: Include multivitamin, escitalopram, fish oil, tramadol, pantoprazole, famotidine, meropenem, dicyclomine, minocycline, amitriptyline, alprazolam, p.r.n. analgesics, antiemetics. PAST MEDICAL HISTORY: As noted above, history of B-cell lymphoma, sarcoma, has a T-cell lymphoma as well, peripheral neuropathy, chronic lymphedema, previous repaired aortic aneurysm, history of cholecystectomy, fibromyalgia. SOCIAL HISTORY: Nonsmoker, no ethanol. FAMILY HISTORY: Noncontributory. REVIEW OF SYSTEMS: As above. PHYSICAL EXAMINATION: GENERAL: She appears chronically ill, undernourished, pleasant, [place] [address] CONSULTATION Name: KYREE BRAND Room: [address] IN [facility]#: [id number] Admission: 05/11/18 Attend Phys: Alana Horn DO Discharge: Date of : 40 Report #: [id number] She is not encephalopathic. VITAL SIGNS: Temperature 97.9, pulse 69, respirations 16, blood pressure 117/55. SKIN: Warm, dry, no rashes. LUNGS: Few scattered crackles. HEART: Regular. I do not appreciate a murmur. ABDOMEN: Soft, mildly distended. There are no peritoneal signs. GENITOURINARY: Deferred. RECTAL: Deferred. LABORATORY DATA: Blood cultures collected on the 24th were sterile at final. Most recent CBC from 05/14/2018, white count 6.3, H and H 10.5 and 32.3, platelets 188. Electrolytes: Sodium 142, potassium 4.1, chloride 105, bicarbonate is 31, anion gap of 6, BUN and creatinine 16 and 0.7. ASSESSMENT: Sepsis, I think on the basis of urinary tract infection with UA ordered on admission. I think it is reasonable to repeat that. I do not see any evidence of a localized pyogenic infection including clinically pneumonitis. Initial chest x-ray from 04/18/2018 was negative as well. I think based on the available limits, we will discontinue. She is under observation and any changes in clinical status would be addressed quickly, ____ including support. <ELECTRONICALLY SIGNED> By: Thierry Uribe MD 05/16/18 0753 [id number] Uribe MD /nt
--- NOTE | 2018-05-16 18:16 | NUR ---
ASSUMED CARE OF PT AT 0714. PT AOX4 AT THIS TIME. PT VSS STABLE, TOLERATING RA, AND HAS NO C/O PAIN THIS SHIFT. PT TOLERATING DIET THIS SHIFT AND IS ABLE TO TOLERATE AMBULATING WITH ROLLER WALKER AND GAIT BELT THIS SHIFT. WOUND RN CAME TO SEE PT DUE TO WOUND VAC NOT MAINTAINING SEAL AND THE WOUND VAC DEVICE WAS CHANGED OUT LEAVING NO FURTHER COMPLICATIONS THIS SHIFT. PT STATES SHE IS TIRED FROM REHAB THERAPIES AND IS RESTING IN BED AT THIS TIME AFTER DINNER. PT SIGNIFICANT OTHER IN ROOM WITH PATIENT AT THIS TIME.
[2018-05-16 19:40] VITALS: BP 122/56
--- NOTE | 2018-05-16 19:40 | NUR ---
SITTING UP IN RECLINER WATCHING TV WITH . DENIES DISCOMFORT. WOUND VAC TO LEFT THIGH INTACT. HAS ANGEL WRAP AROUND LEFT LEG. LARGE AMOUNT OF SEROSANGOUS DRAINAGE NOTED IN WOUND CANISTER.
[2018-05-17 04:07] LABS: HEMATOCRIT 30.5 % (37.0-47.0); MCHC 32.8 g/dL (28.0-37.0); MCV 97.8 fL (80.0-100.0); RBC 3.12 mil/uL (4.20-5.00); RDW-CV 15.7 % (10.5-14.5); WBC 3.9 thou/uL (4.0-11.0)
[2018-05-17 04:18] LABS: CALCIUM 9.9 mg/dL (8.5-10.1); CREATININE 0.6 mg/dL (0.6-1.3)
--- NOTE | 2018-05-17 05:18 | NUR ---
PAIN MEDICATION GIVEN X 2 FOR COMPLAINT OF LEFT THIGH PAIN WITH RELIEF. TOOK MEDICATION WHOLE WITH WATER. UP X 3 DURING THE NIGHT TO THE BATHROOM TO VOID. AMBULATES WITH SBA, GAITBELT, WALKER. HOURLY ROUNDING IN PROGRESS.
[2018-05-17 07:30] VITALS: BP 111/36
--- NOTE | 2018-05-17 15:16 | NUR ---
BJ and Dr Horn met with pt and pt to review team conference summary and discuss plan for pt to dc home on Tuesday and could reschedule her appt with oncologist for next . Pt was not in agreement with plan and was insisting on being able to dc so she can keep her appt with oncologist at and try to arrange for surgery. Pt attests that she feels strong enough and ready to have her surgery. Dr Horn explained that pt surgeon may also say that pt needs to be even stronger and that therapy would be able to help pt improve even more towards her goals by Tuesday but pt still disagreed. Team discussed situation and suggested pt be able to go to appt and then come back for therapy if not until Tuesday, then team would reassess. BJ spoke with pt dtr Elizabeth to provide above information and then Elizabeth spoke with pt who then came to the agreement that she would go to the appt and then return to rehab to continue therapies at least for another day. BJ called [facility] and arranged for ride for appt; pt to be picked up at 7:50 am for 8:50 am appt at [facility] and will provide ride back to inpt rehab. BJ to continue to follow to assist with safe dc planning.
--- NOTE | 2018-05-17 18:53 | NUR ---
PATIENT HAS BEEN A/O X 4 THIS SHIFT. PATIENT MEDICATED FOR LEFT LEG PAIN THIS EVENING WITH PARTIAL EFFECT. WOUND VAC DRESSING CHANGED TO LEFT THIGH BY WOUND VAC, WOUND VAC WORKING WELL. PATIENT UP WITH SBA AND WALKER. PATIENT AMBULATING TO DINING ROOM FOR MEALS WITH WALKER. APPETITE GOOD. PARTICIPATED IN ALL THERAPIES. PATIENT TO GO FOR ONCOLOGY APPT ON TUESDAY AT . PATIENT SBA WITH GB AND WALKER TO BATHROOM, USING GRAB BAR AND GENEVA-PAD. PATIENT HAD SOFT, UNFORMED BMs THIS SHIFT, DOES NEED MINIMAL ASSIST FOR CLOTHING MANAGEMENT TO LEFT LEG FROM WOUND VAC. UP TO RECLINER FOR MOST OF SHIFT BETWEEN THERAPIES. PATIENT'S FAMILY IN THROUGHOUT THE SHIFT. FALL PRECAUTIONS IN PLACE. HOURLY ROUNDING COMPLETED. CALL LIGHT WITHIN REACH. WILL CONTINUE WITH PLAN OF CARE.
[2018-05-17 20:09] VITALS: BP 134/64
--- NOTE | 2018-05-18 01:30 | NUR ---
ASSUMED CARE @ 1939-.SITS IN RECLINER W/ VISITING @ THIS TIME. WOUND VAC IN PLACE & PATENT.WEARS PULL UPS.SBA FOR ALL TRANSFERS & TOILETING. REQUESTED TO RE-APPLY ANGEL BANDAGE LEFT THIGH & DONE @ 2149.HOB UP.WANTS ONLY LEFT LE UP ON A PILLOW W/ LEFT HEEL OFF BED @ 2154.BED ALARM PUT ON @ 2154. SEE PAIN MANAGEMENT @ 2157.PICC LINE HAS GOOD BLOOD RETURN @ 2224 & FLUSHED GOOD.ON HOURLY ROUNDS.DATA ENTRY SUPERVISOR DOING ODD HOUR ROUNDS.
--- NOTE | 2018-05-18 05:13 | NUR ---
SLEPT GOOD ALL NIGHT & SLEEPING SINCE 2244.BRP W/ SBA X2.REFUSED HS SNACK. NO EPISODE OF DIARRHEA DURING NIGHT.TO LEAVE @ 0750 THIS AM TO GO TO [facility] FOR FOLLOW UP W/ ONCOLOGIST PER WHEEL CHAIR VAN.OFFERED TO ORDER BREAKFAST BEFORE LEAVING BUT PATIENT REFUSED.
[2018-05-18 07:30] VITALS: BP 125/65
[2018-05-18 08:00] VITALS: BP 125/65
--- NOTE | 2018-05-18 08:20 | NUR ---
PATIENT LEFT VIA WHEELCHAIR VAN FOR APPT WITH [facility] ONCOLOGIST
--- NOTE | 2018-05-18 12:04 | NUR ---
PATIENT RETURNED FROM APPOINTMENT
--- NOTE | 2018-05-18 16:22 | NUR ---
SW spoke with pt after pt returned from her appt with the surgeon and after she completed therapies for the day. Pt relayed info that the surgery is now scheduled for Jun 09 and that the surgeon recommending pt continue to gain strength. Pt agrees with continuing therapy and for pt to complete family training on Tuesday and stay with pt through the night and for pt to dc home with on Tuesday. [facility] HH services to follow. PT OT RN for wound care as well. SW relayed information to pt dtr who is in agreement with plan. SW to continue to follow to assist with safe dc planning.
--- NOTE | 2018-05-18 16:29 | NUR ---
PATIENT REMAINS ALERT AND ORIENTED. DENIES PAIN. REPORTS FEELING UPSET AND ANXIOUS AFTER APPOINTMENT THIS AM. STATES THIS IS WHY SHE IS HAVING DIARRHEA. IMMODIUM CHANGED TO 2 TABS WITH FIRST LOOSE STOOL. 2 TABS GIVEN THIS AFTERNOON. 3 LOOSE STOOLS TODAY, AND PATIENT REPORTS 4 LOOSE STOOLS LAST NIGHT. WOUND VAC CANNISTER CHANGED THIS SHIFT. 400MLS SEROSANGUINEOUS DRAINAGE. REMAINS AT 125MMHG. TOLERATING MEALS. AMBULATES WITH STANDBY ASSIST, WALKER AND GAITBELT. VSS. CALL LIGHT WITHIN REACH. WILL CONTINUE TO MONITOR.
[2018-05-18 20:30] VITALS: BP 114/61
--- NOTE | 2018-05-18 20:45 | NUR ---
SITTING UP IN RECLINER VISITING WITH . EARLIER AMBULATED FROM THE DINING ROOM TO PATIENT ROOM WITH SBA, GAITBELT, WALKER, WOUND VAC SITTING ON SEAT OF WALKER. WOUND VAC INTACT AND DRAINING SEROSANGUOUS FLUID. 3+ EDEMA NOTED TO LEFT LEG. PT HAS HISTORY OF CHRONIC VENOUS STATIS. DENIES NEED FOR PAIN MEDICATION. TOOK MEDICATIONS WHOLE WITH WATER.
--- NOTE | 2018-05-19 05:41 | NUR ---
UP X 3 DURING THE NIGHT TO THE BATHROOM TO VOID. SET BED ALARM OFF EACH TIME DESPITE BEING REMINDED TO USE THE CALL LIGHT BEFORE GETTING OUT OF BED. NO DIARRHEA DURING THE NIGHT. HOURLY ROUNDING IN PROGRESS.
[2018-05-19 07:57] VITALS: BP 127/63
--- NOTE | 2018-05-19 13:40 | NUR ---
ASSUMED CARE AT 0730. ALERT ORIENTED PLEASANT COOPERATIVE. HX OF ENCEPHALOPATHY AND TUMOR REMOVED L THIGH WOUND VAC OPERATING AT 125MMHG WITHOUT ISSUES. DENIES PAIN OR REQUESTS. USING CALL LIGHT APPROPRIATELY FOR ASSIST. VOIDS IN BR HAS HAD 2 LOOSE STOOLS PER PT. REPORT GAVE HER 2 LOMOTILS AFTER 1ST STOOL. PARTICIPATING IN THERAPIES THROUGHOUT THE A.M. WOUND CARE NURSE KAMLESH DID DRESSING CHANGE AFTER LUNCH WOUND VAC. MEDICATED WITH 2 TYLENOL BEFORE DRESSING CHANGE. HERE VISITING TODAY.
--- NOTE | 2018-05-19 14:18 | NUR ---
WOUND NURSE: PATIENT SEEN FOR DRESSING CHANGE TO LEFT THIGH WOUND. PRESENTS WITH 100% BEEFY RED GRANULATION TISSUE IN THE WOUND BED AND MODERATE AMOUNT OF SEROUSANGUINOUS DRAINAGE IN THE CANNISTER. THERE IS NO PERIWOUND REDNESS, WARMTH, OR INDURATION. THERE IS EDEMA R/T LYMPHEDEMA PRESENT. PATIENT REPORTS SOME TENDERNESS WITH DRESSING CHANGE. REMOVED AND REAPPLIED WOUND VAC DRESSING PER PROTOCAL WITH SETTINGS OF 125MMHG CONTINUOUS NEGATIVE PRESSURE. PATIENT WAS INSTRUCTED TO MEASURES TO PROMOTE HEALING AND PREVENT COMPLICATIONS WITH GOOD UNDERSTANDING ACHIEVED.
[2018-05-19 20:34] VITALS: BP 130/67
--- NOTE | 2018-05-20 01:15 | NUR ---
ASSUMED CARE @ 1919-TUESDAY.PLAYING BOARD GAME W/ IN WOUND VAC PATENT.ASSISTED BY ASSISTANT WOMENS VOLLEYBALL COACH TO RECLINER @ 2014 W/ LE'S UP.CHAIR ALARM PUT ON @ 2014.PICC FLUSHED @ 2049 W/ GOOD BLOOD RETURN.REQUESTED TYLENOL 2 TABS FOR PAIN LEFT THIGH & FOR SLEEP & GIVEN @ 2204.SBA FOR ALL TRANSFERS & TOILETING.WEARS PULL UPS.LEFT LE UP ON A PILLOW IN BED @ 2214.BED ALARM PUT ON @ 2214.PRN ULTRAM ONE TAB ORAL GIVEN @ 106-FOR C/O HEADACHE RIGHT SIDE HEAD & RIGHT SIDE-NECK.TURNS SELF @ NIGHT.ON HOURLY ROUNDS.ASSISTANT WOMENS VOLLEYBALL COACH DOING ODD HOUR ROUNDS.
--- NOTE | 2018-05-20 05:08 | NUR ---
REFUSED HS SNACK.SLEPT GOOD ALL NIGHT & SLEEPING SINCE 2250.BRP W/ SBA X3 DURING NIGHT.NO EPISODE OF DIARRHEA DURING NIGHT.
[2018-05-20 07:37] VITALS: BP 129/62
[2018-05-20 07:45] VITALS: BP 129/62
--- NOTE | 2018-05-20 16:13 | NUR ---
Assumed care of pt at 0700, pt up in recliner.Pt able to make needs known. Pt able to ambulate to restroom with only stand by assist. Pt had c/o loose stools this AM and requested PRN Lomotil, it was administered as ordered. Pt participated in therapy throughout this shift. Family here to visit pt this afternoon. Hourly rounding maintained, will cont to monitor.
[2018-05-20 20:00] VITALS: BP 117/57
--- NOTE | 2018-05-21 01:23 | NUR ---
ASSUMED CARE @ -SAT.DAY PRIMARY CARE COORDINATOR SBA W/ AMBULATING PATIENT FROM ROOM TO DR TO FINISH PAINTING. VISITING @ THIS TIME.WOUND VAC PATENT.BACK TO ROOM @ 2029 & SAT IN RECLINER W/ LE'S UP.PICC LINE HAS GOOD BLOOD RETURN @ 2049 & FLUSHED EASILY.HOB UP.LEFT LE W/ LYMPHEDEMA & ELEVATED ON A PILLOW @ 2232 WHEN IN BED.BED ALARM PUT ON @ 2239.SEE PAIN MANAGEMENT @ 2236.PRN MYLANTA 15 ML ORAL GIVEN @ 2240 FOR C/O INDIGESTION.NOTED PINK LEFT JUDAISM.CLAIMED BURN AREA W/ HAIR IRON 2 DAYS AGO.ON HOURLY ROUNDS.
--- NOTE | 2018-05-21 05:18 | NUR ---
SLEPT LATE @ 0000-05/21-TUESDAY BUT SLEPT GOOD ALL NIGHT.BRP X4 W/ SBA.WEARS GENEVA PADS.URINE ACCIDENT X1 @ 0445.REFUSED HS SNACK.
[2018-05-21 07:35] VITALS: BP 118/55
[2018-05-21 07:59] VITALS: BP 118/55
--- NOTE | 2018-05-21 17:50 | NUR ---
ASSUMED CARE AT 0730 PATIENT ALERT/ORIENTED, NO COMPLAINTS OF PAIN THIS SHIFT, WOUND VAC ALARMING HIGH PRESSURE THIS AM, REPLACED TUBING THAT ATTACHES TO THE FOAM, VAC HAS WORKED ALL AFTERNOON WITH LIGHT RED DRAINAGE NOTED IN CANNISTER. PATIENT UP WITH STANDBY WITH HER WALKER, HOURLY ROUNDING COMPLETED. TO DINING ROOM FOR MEALS.
[2018-05-21 19:45] VITALS: BP 115/72
--- NOTE | 2018-05-22 01:12 | NUR ---
ASSUMED CARE @ 1919-05/21-TUESDAY.PAINTING IN DR. VISITING @ THIS TIME. WOUND VAC PATENT.SBA BY LOCOMOTIVE OPERATOR HELPER WHILE AMBULATING FROM DR TO ROOM W/ GB & WALKER @ 2029.SITS IN RECLINER @ 2029.PICC LINE HAS A GOOD BLOOD RETURN & FLUSHES GOOD @ 2031.SBA FOR ALL TRANSFERS & TOILETING.WEARS PULL UPS.PRN TYLENOL 2 TABS ORAL GIVEN @ 2216 FOR PAIN & TO HELP SLEEP-PER PATIENT.TO BED @ 2214.LEFT LE UP ON A PILLOW @ 2214.BED ALARM PUT ON @ 2214.WY @ 1945-107/MIN.WY RE-CHECKED @ 2225-99/MIN-REGULAR.ON HOURLY ROUNDS.LOCOMOTIVE OPERATOR HELPER DOING ODD HOUR ROUNDS.
--- NOTE | 2018-05-22 05:11 | NUR ---
SLEPT LATE SINCE 2300 BUT SLEEPING GOOD ALL NIGHT.REFUSED HS SNACK.NO DIARRHEA DURING NIGHT.BRP W/ SBA X4 DURING NIGHT.
[2018-05-22 08:32] VITALS: BP 117/54
--- NOTE | 2018-05-22 14:25 | NUR ---
ASSUMED CARE AT 0730. ALERT ORIENTED PLEASANT COOPERATIVE. HX OF ENCEPHALOPATHY AND L THIGH TUMOR REMOVAL WOUND VAC IN PLACE AND FUNCTIONING AT 125MMHG. LARGE AMT OF DRAINAGE IN WOUND VAC CANNISTER NOTED. TRANSFERS WITH SBA G BELT WALKER AND AMBULATES TO BR HAD 2 LOOSE BMS GAVE 2 LOMOTILS THIS A.M. DENIES PAIN OR CONCERNS. USING CALL LIGHT APPROPRIATELY FOR ASSIST. PT. HERE FOR FAMILY EDUCATION. PARTICIPATING IN THERAPIES.
--- NOTE | 2018-05-22 14:37 | NUR ---
KNITTED GARMENT FINISHER SPOKE TO POLLY WITH [facility] TO INFORM OF THE REFERRAL, AND FAXED PATIENT'S FACESHEET AND H&P. CM TO FAX D/C ORDERS WHEN AVAILABLE. CM WILL REMAIN AVAILABLE TO ASSIST AND FOLLOW NEEDED.
--- NOTE | 2018-05-22 17:16 | NUR ---
HOURLY ROUNDING COMPLETED. KAYLI TERESA DID WOUND VAC DRESSING THIS AFTERNOON.
[2018-05-22 20:08] VITALS: BP 101/73
--- NOTE | 2018-05-23 05:06 | NUR ---
ASSUMED CARES AT 1920. ALERT AND ORIENTED. PLEASANT. TYLENOL GIVEN FOR LEFT LEG PAIN. TAKES PILLS WHOLE WITHOUT ISSUES. PICC TO RIGHT UPPER ARM FLUSHING WELL. WOUND VAC RUNNING AT 125 MMHG TO LEFT LEG WITH DRESSING INTACT. SBA WITH GAIT BELT AND WALKER. UP TO BATHROOM. STAYED OVERNIGHT. NO OTHER ISSUES. CALL LIGHT IN REACH.
[2018-05-23 08:05] VITALS: BP 106/46
--- NOTE | 2018-05-23 10:46 | NUR ---
Pt to dc home today with . SW to fax final orders to [facility]; referral already accepted. Pt completed family training and overnight stay last night. No other dc needs expressed; pt family to provide pt ride home.
[2018-05-23 10:50] VITALS: BP 106/46
[2018-05-23] MEDS ORDERED: RANITIDINE 150150 M1 PO (12:46)
[2018-05-23 12:50] VITALS: BP 106/46
[2018-05-23 14:18] VITALS: BP 106/46
--- NOTE | 2018-05-23 14:21 | NUR ---
ASSUMED CARE AT 0730. ALERT ORIENTED PLEASANT COOPERATIVE. HX OF ENCEPHALOPATHY AND L THIGH TUMOR WAS REMOVED WITH WOUND VAC IN PLACE FUNCTIONING WELL AT 125MMHG. DRAINAGE CANNISTER HAS MUCH DRAINAGE PRESENT. DENIES PAIN OR CONCERNS. USES CALL LIGHT APPROPRIATELY FOR ASSISTANCE. PICC LINE MURPHY DRESSING C/D/I. AMBULATES TO [facility] HAD 1 LOOSE BM REQUESTED LOMOTIL TABS 2. APPETITE GOOD FEEDS SELF TAKES MEDS WITHOUT DIFFICULTY. PICC D/CD AT 1400. DRESSING APPLIED. READY FOR DISCHARGE BY 1418 VERBALIZED UNDERSTANDING OF INSTRUCTIONS ALLOWED TIME FOR QUESTIONS. SCRIPTS GIVEN TO AND D/C INSTRUCTIONS COPY. DISMISSED WITH ALL BELONGINGS PER W/C WITH TO HOME.
--- NOTE | 2018-05-29 10:19 | D ---
[facility] [address] [place] [address] DISCHARGE SUMMARY Name: KYREE BRAND Room: [address] IN ..#: [id number] Admission: 05/11/18 Attend Phys: Alana Horn DO Discharge: 05/23/18 Date of : 40 Report #: [id number] THIS REPORT FOR: //name// CC: Alana Uribelando DATE OF SERVICE: 05/23/2018 DISCHARGE DIAGNOSIS: Encephalopathy. DISCHARGE DISPOSITION: To home with home health, PT, OT, nursing, as well as wound care. She will follow with her primary care physician within 1 week and Neurology, Dr. Garcia in 2-4 weeks. She will also be in the Wound Clinic once weekly and home health nursing can change the wound VAC the other two times. She will also follow up with her surgeon at for skin graft when ready. Maintain regular diet. Monitor weight gain. Fall precautions. Medications were reviewed and reconciled by myself and are available in the MAR. No significant medication changes were initiated during this stay; however, minocycline was held and that will be held until primary care physician followup. Prescriptions were given for tramadol as well as Xanax for one month supply. She did progress well during her therapies towards independent and will continue with home health PT, OT and nursing. DISCHARGE PHYSICAL EXAMINATION: GENERAL: Alert, oriented, no apparent distress. VITAL SIGNS: Reviewed and are stable. HEENT: Head atraumatic, normocephalic. Pupils equal, round, reactive. ABDOMEN: Soft, nontender, nondistended. NEUROLOGIC: Cranial nerves 2-12 are grossly intact with no focal neuro deficits, 5/5 strength in the bilateral upper and lower extremities. SKIN: Warm and dry. Her negative pressure wound therapy is intact. <ELECTRONICALLY SIGNED> By: Alana Horn DO 05/29/18 1019 1121 [id number] Horn DO /nt
--- NOTE | 2018-06-21 13:57 | H ---
[address] [address] HISTORY AND PHYSICAL Name: KYREE BRAND Room: [address] IN [facility]#: [id number] Admission: 05/11/18 Attend Phys: Alana Horn DO Discharge: 05/23/18 Date of : 40 Report #: [id number] THIS REPORT FOR: //name// CC: Alana Sánchez DATE OF SERVICE: 05/11/2018 DIAGNOSES: Primarily encephalopathy as well as significant wound and wound care, status post chemoradiation and a left leg surgical debridement on 04/27/2018. IGC is 2.1. HISTORY OF PRESENT ILLNESS: A 77-year-old female admitted to [facility] on 05/08/2018 status post generalized weakness, confusion and altered mental status, diagnosed with encephalopathy, complex medical history, recently been admitted to with sepsis from UTI, which showed beta lactamase Escherichia coli. She was treated with IV antibiotics. She is still on antibiotics and also has a PICC line. 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 She had chemoradiation on the left lower leg and surgical debridement on 04/27/2018. She was scheduled to have a skin graft on 05/08/2018, but due to her weakness and increase in symptoms that has been delayed, her surgeon is aware. Her previous level of function was independent to modified independent with activities of daily living and current level of function is minimum to moderate assistance of 1-2 depending on therapy, activity and time of day. She does have [id number] impairment of comprehension, expression, social interaction, problem solving and memory. There has been no changes since the preadmission screening. Her estimated length of stay is 10-12 days with discharge disposition to the home setting where she does have a who can provide supervision and assistance. She does have negative pressure wound therapy going at this time with changes on Tuesday, Tuesday and Tuesday. PAST MEDICAL HISTORY: History of hypertension, GERD, anemia, AAA, history of PE, history of DVT, anxiety, depression, lymphoma, chemotherapy, angiosarcoma, UTI, sepsis, immune compromised, debility, SBO, neuropathy, lymphedema, cellulitis, history of skin cancer, chronic left lower extremity venous stasis. PAST SURGICAL HISTORY: Hysterectomy, cholecystectomy, bilateral total knee arthroplasties, cancerous tumor removal, right elbow replacement. DRUG ALLERGIES: INCLUDE ANGEL INHIBITORS, HYDROCODONE, MORPHINE, PENICILLIN, SULFA, AND CODEINE. SOCIAL HISTORY: No tobacco, alcohol [place] [address] HISTORY AND PHYSICAL Name: TG BRANDARA Sherlyn Room: [address] IN ..#: [id number] Admission: 05/11/18 Attend Phys: Alana Horn, DO Discharge: 05/23/18 Date of : 40 Report #: [id number] FAMILY HISTORY: Cancer, heart disease. MEDICATIONS: Reviewed and reconciled by myself and are available in the MAR. REVIEW OF SYSTEMS: A 14-point review of systems is done and is negative except as mentioned in the HPI, specifically no fever, chest pain, shortness of breath, abdominal pain or distention. PHYSICAL EXAMINATION: GENERAL: Alert, oriented, no apparent distress. VITAL SIGNS: Reviewed and are stable. HEENT: Head is atraumatic, normocephalic. Pupils equal, round, reactive. ABDOMEN: Soft, nontender, nondistended. NEUROLOGIC: Cranial nerves 2-12 are grossly intact with no focal neuro deficits, 5/5 strength in the bilateral upper and lower extremities. SKIN: Warm and dry, negative pressure wound therapy is in place on the left lower extremity. Wound was visualized, photographed and measured and that is available in the chart. ASSESSMENT: 1. Encephalopathy. 2. Significant wound, post-surgical debridement, on negative pressure wound therapy. 3. Multiple medical comorbidities. PLAN: 1. Would be an admission to inpatient rehabilitation. 2. PT, OT, speech, language, case management, nursing and HIMS to make evaluations and recommendations. 3. We will have Wound Care follow her as well as Neurology as they were following her earlier and if need be, Dr. Uribe. 4. Plan of care is pending and we will team her weekly. 5. She will maintain the same diet. <ELECTRONICALLY SIGNED> By: Alana Horn DO 06/21/18 1357 1240 1323Ksonu Horn DO /nt
--- NOTE | 2018-06-21 13:57 | PLAN ---
[facility] [address] [place] [address] REHAB UNIT PLAN OF CARE Name: KYREE BRAND Room: [address] IN [facility]#: [id number] Admission: 05/11/18 Attend Phys: Alana Horn DO Discharge: 05/23/18 Date of : 40 Report #: [id number] THIS REPORT FOR: //name// CC: Alana Sánchez This is a 77-year-old female admitted to inpatient rehabilitation to facilitate safe discharge home, status post acute hospitalization starting in the Emergency Room at [facility] on 05/08/2018. She had been admitted recently at with sepsis from beta lactamase, Escherichia coli urinary tract infection. She was treated with IV antibiotics. She was still on those and had a PICC line placed at that time. 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 She did get chemotherapy and radiation on the left leg and also has a history of surgery and surgical debridement on 04/27/2018 with negative pressure wound therapy in the postoperative period. She is pending skin graft; however, her presentation with weakness and altered mental status, she is now on hold for that second surgery until she has gained her strength. Her previous level of function was modified independent to independent with activities of daily living. Current level of function is minimum to moderate assistance of 1-2 depending on therapy, activity and time of day. Estimated length of stay is 10-12 days with discharge disposition to the home setting where she has supportive family and an accessible house. MEDICAL PROGNOSIS: Good. REHABILITATION PROGNOSIS: Good. Physical therapy will see the patient 60-90 minutes per day, 5 days per week, working on upper and lower body strength, balance, coordination, navigation. Occupational therapy will work with the patient 60-90 minutes per day, 5 days per week, working on upper and lower body strength, balance, coordination, navigation, bathing, dressing, and toileting. Speech language pathology will work with the patient 30-90 minutes per day, 5 days per week, working on comprehension, expression, social interaction, problem solving and memory. This is an overall plan of care, may change from time to time, we will team weekly and make changes to plan of care as needed. <ELECTRONICALLY SIGNED> By: Alana Horn DO 06/21/18 1357 1243 Ariela Horn DO /nt
== END 2018-05-23 14:19 | disposition home health service (06) | DRG 70 ==
LOC: M.REH 17:32
PROVIDERS: Family Medicine; Internal Medicine; Specialist; ADMIT Physical Medicine & Rehabilitation
DX: G93.49 Other encephalopathy (principal); A41.51 Sepsis due to Escherichia coli [E. coli]; N39.0 Urinary tract infection, site not specified; C49.22 Malignant neoplasm of connective and soft tissue of left lower limb, including hip; B96.20 Unspecified Escherichia coli [E. coli] as the cause of diseases classified elsewhere; C76.52 Malignant neoplasm of left lower limb; S81.802A Unspecified open wound, left lower leg, initial encounter; X58.XXXA Exposure to other specified factors, initial encounter; I10 Essential (primary) hypertension; K21.9 Gastro-esophageal reflux disease without esophagitis; Z86.711 Personal history of pulmonary embolism; Z86.718 Personal history of other venous thrombosis and embolism; F41.9 Anxiety disorder, unspecified; F32.9 Major depressive disorder, single episode, unspecified; G62.9 Polyneuropathy, unspecified; R53.81 Other malaise; Z85.828 Personal history of other malignant neoplasm of skin; I87.8 Other specified disorders of veins; Z90.710 Acquired absence of both cervix and uterus; Z90.49 Acquired absence of other specified parts of digestive tract; Z96.653 Presence of artificial knee joint, bilateral; Z96.621 Presence of right artificial elbow joint; Z88.6 Allergy status to analgesic agent; Z88.0 Allergy status to penicillin; Z88.2 Allergy status to sulfonamides; Z88.8 Allergy status to other drugs, medicaments and biological substances; Z79.899 Other long term (current) drug therapy; M79.7 Fibromyalgia; D64.9 Anemia, unspecified; Z92.3 Personal history of irradiation; Z92.21 Personal history of antineoplastic chemotherapy; Z23 Encounter for immunization

== ENCOUNTER → 2018-05-26 | Outpatient (CLI) | payer MEDICARE, OTHER ==
[~2018-05-26] MED LIST changes: +RANITIDINE 150150 M1 PO
== END ==
LOC: M.WC 08:44
DX: T81.89XA Other complications of procedures, not elsewhere classified, initial encounter (principal); C49.22 Malignant neoplasm of connective and soft tissue of left lower limb, including hip; K21.9 Gastro-esophageal reflux disease without esophagitis; F33.1 Major depressive disorder, recurrent, moderate; F41.1 Generalized anxiety disorder; Z90.710 Acquired absence of both cervix and uterus; Z85.72 Personal history of non-Hodgkin lymphomas; Y92.89 Other specified places as the place of occurrence of the external cause; Y83.8 Other surgical procedures as the cause of abnormal reaction of the patient, or of later complication, without mention of misadventure at the time of the procedure

== ENCOUNTER 2018-06-11 11:32 | Emergency (ER) | payer MEDICARE, OTHER ==
[~2018-06-11] VITALS: Ht 162.6 cm; Wt 72.6 kg
[2018-06-11 12:39] LABS: ABSOLUTE BASOPHILS 0.1 thou/uL (0.0-0.2); ABSOLUTE LYMPHOCYTES 0.6 thou/uL (0.8-5.3); ABSOLUTE MONOCYTES 0.5 thou/uL (0.0-1.2); ABSOLUTE NEUTROPHILS 4.8 thou/uL (1.6-8.1); BASOPHILS 0.9 %; EOSINOPHILS 0.8 %; HEMATOCRIT 30.5 % (37.0-47.0); HEMOGLOBIN 9.9 gm/dL (12.0-15.0); MCH 30.3 pg (26.0-34.0); MCHC 32.3 g/dL (28.0-37.0); MCV 93.8 fL (80.0-100.0); MONOCYTES 8.8 %; MPV 8.4 fl. (7.2-11.1); NUCLEATED RBCS 0 /100WBC; PLATELET COUNT* 203 thou/uL (150-400); POLYS 79.5 %; RBC 3.25 mil/uL (4.20-5.00); RDW-CV 15.5 % (10.5-14.5)
[2018-06-11 12:47] LABS: CALCIUM 10.2 mg/dL (8.5-10.1); POTASSIUM 3.7 mmol/L (3.5-5.1)
[2018-06-11 12:52] LABS: ALBUMIN 2.3 g/dL (3.4-5.0); TOTAL BILIRUBIN 0.3 mg/dL (<0.1-1.0); TOTAL PROTEIN 6.3 g/dL (6.4-8.2)
[2018-06-11 16:20] VITALS: BP 111/55
== END 2018-06-11 16:57 | disposition short-term general hospital (02) ==
LOC: M.ERS 11:32
PROVIDERS: Physician Assistant
DX: L03.032 Cellulitis of left toe (principal); M79.7 Fibromyalgia; Z96.621 Presence of right artificial elbow joint; Z85.828 Personal history of other malignant neoplasm of skin; Z90.49 Acquired absence of other specified parts of digestive tract; Z90.710 Acquired absence of both cervix and uterus; Z96.653 Presence of artificial knee joint, bilateral; Z88.0 Allergy status to penicillin; Z88.2 Allergy status to sulfonamides; Z88.5 Allergy status to narcotic agent; Z88.8 Allergy status to other drugs, medicaments and biological substances

== ENCOUNTER 2018-08-09 10:14 | Inpatient (IN) | payer MEDICARE, OTHER ==
[~2018-08-09] VITALS: Ht 160 cm; Wt 83.9 kg
[2018-08-09 10:19] VITALS: BP 100/37
[2018-08-09] MEDS ORDERED: OXYCONTIN20 M1 PO (10:24)
[2018-08-09 11:04] LABS: URINE BILIRUBIN NEGATIVE (Negative); URINE BLOOD 3+ (Negative); URINE CLARITY CLEAR; URINE COLOR YELLOW; URINE GLUCOSE-RANDOM NEGATIVE (Negative); URINE KETONES NEGATIVE (Negative); URINE LEUKOCYTES-REFLEX TRACE (Negative); URINE PROTEIN 2+ (Negative); URINE SPECIFIC GRAVITY >= 1.030 (1.005-1.030); URINE UROBILINOGEN 0.2 E.U./dl (0.2-1.0)
[2018-08-09 11:09] LABS: URINE NITRITE-REFLEX POSITIVE (Negative)
[2018-08-09 11:18] LABS: HEMATOCRIT 30.6 % (37.0-47.0); MCHC 32.6 g/dL (28.0-37.0); MCV 92.1 fL (80.0-100.0); MPV 8.4 fl. (7.2-11.1); NUCLEATED RBCS 0 /100WBC; PLATELET COUNT* 146 thou/uL (150-400); RBC 3.32 mil/uL (4.20-5.00); RDW-CV 17.3 % (10.5-14.5)
[2018-08-09 11:20] LABS: BACTERIA-REFLEX 1-9 Few /HPF (None Seen); CRYSTALS None Seen /LPF (None Seen); HYALINE CASTS 4-10 Moderate /LPF (None Seen); MUCUS None Seen strn/LPF (None Seen); SQUAMOUS 4-10 Moderate /LPF (0-3); URINE WBC-REFLEX 0-5 Rare /HPF (0-5)
[2018-08-09 11:28] LABS: WBC 1.1 thou/uL (4.0-11.0)
[2018-08-09 11:32] LABS: APTT 32.5 Seconds (25.0-31.3); INR 1.1; PROTIME 10.9 Seconds (9.20-11.50)
[2018-08-09 11:39] LABS: ANION GAP 8 mmol/L (7-16); BUN 23 mg/dL (7-18); CALCIUM 10.1 mg/dL (8.5-10.1); CHLORIDE 103 mmol/L (98-107); CO2 27 mmol/L (21-32); CREATININE 0.8 mg/dL (0.6-1.3); GLUCOSE 89 mg/dL (70-99); POTASSIUM 3.6 mmol/L (3.5-5.1); SODIUM 138 mmol/L (136-145)
[2018-08-09 11:48] LABS: ALBUMIN 3.4 g/dL (3.4-5.0); ALKALINE PHOSPHATASE 107 U/L (46-116); NT-PRO BRAIN NAT PEPTIDE 828 pg/mL (<300); SGOT 11 U/L (15-37); SGPT 17 U/L (30-65); TOTAL BILIRUBIN 0.9 mg/dL (<0.1-1.0); TOTAL PROTEIN 6.5 g/dL (6.4-8.2); TROPONIN-I LEVEL <0.06 ng/mL (<0.06)
[2018-08-09 12:29] LABS: ABSOLUTE LYMPHOCYTES 0.6 thou/uL (0.8-5.3); ABSOLUTE MONOCYTES 0.1 thou/uL (0.0-1.2); ABSOLUTE NEUTROPHILS 0.4 thou/uL (1.6-8.1); ANISOCYTOSIS 1+; ATYPICAL LYMPHS 14 %; PLATELET ESTIMATE ADEQUATE
--- NOTE | 2018-08-09 14:32 | EKG ---
[place] [address] ELECTROCARDIOGRAM REPORT Name: KYREE BRAND Room: [place] [address] ADM IN [facility]#: [id number] Admission: 08/09/18 Attend Phys: Carlos Weaver MD Discharge: Date of : 40 Report #: [id number] THIS REPORT FOR: //name// [facility] ED Test Date: 2018-08-09 Test Time: 11:01:54 Pat Name: KYREE BRAND Department: Room: [facility] Gender: F Cytogenetics Technologist: RAJAN : 1940 Requested By: Lorena Bush Order Number: [id number] MD: Hawk Castellanos Measurements Intervals [place] Rate: 107 P: 21 HI: 183 QRS: -13 QRSD: 100 T: 21 QT: 334 QTc: 446 Interpretive Statements Sinus tachycardia Multiple premature complexes, vent & supraven Compared to ECG 05/08/2018 15:33:02 Sinus rhythm no longer present pac and pvc now noted Electronically Signed On 08-09-2018 14:32:19 CHIEF OPERATOR REFORMER by Hawk Castellanos [email or web address] <ELECTRONICALLY SIGNED> By: Hawk Castellanos MD, FACC 08/09/18 1432 1101 1101 Hawk Castellanos MD, [facility] /EPI
[2018-08-09 17:51] VITALS: BP 115/54
[2018-08-09 19:55] VITALS: BP 146/74
[2018-08-09 20:10] VITALS: BP 154/91
[2018-08-10] VITALS: BP 121/61
[2018-08-10 04:00] VITALS: BP 125/61
[2018-08-10 04:26] LABS: HEMATOCRIT 28.6 % (37.0-47.0); HEMOGLOBIN 9.3 gm/dL (12.0-15.0); MCH 29.9 pg (26.0-34.0); MCHC 32.5 g/dL (28.0-37.0); MPV 8.8 fl. (7.2-11.1); RBC 3.11 mil/uL (4.20-5.00); RDW-CV 17.5 % (10.5-14.5)
[2018-08-10 04:30] LABS: WBC 1.4 thou/uL (4.0-11.0)
[2018-08-10 05:04] LABS: CALCIUM 9.1 mg/dL (8.5-10.1); CREATININE 0.7 mg/dL (0.6-1.3); MAGNESIUM 1.3 mg/dL (1.8-2.4); POTASSIUM 3.7 mmol/L (3.5-5.1)
[2018-08-10 07:30] VITALS: BP 103/53
[2018-08-10] MEDS ORDERED: DEXAMETHASONE 44 M1 PO (08:54)
[2018-08-10] MEDS ORDERED: OXYCODONE HCL 55 MG PO (10:26)
[2018-08-10 11:54] VITALS: BP 123/68
[2018-08-10 16:00] VITALS: BP 136/68
[2018-08-10 20:00] VITALS: BP 129/63
[2018-08-11] VITALS: BP 137/70
[2018-08-11 04:00] VITALS: BP 134/72
[2018-08-11 05:14] LABS: ABSOLUTE EOSINOPHILS 0.1 thou/uL (0.0-0.7); ABSOLUTE LYMPHOCYTES 1.4 thou/uL (0.8-5.3); ABSOLUTE MONOCYTES 0.3 thou/uL (0.0-1.2); ABSOLUTE NEUTROPHILS 0.9 thou/uL (1.6-8.1); BASOPHILS 1.1 %; EOSINOPHILS 2.4 %; HEMATOCRIT 29.9 % (37.0-47.0); HEMOGLOBIN 9.8 gm/dL (12.0-15.0); LYMPHOCYTES 52.6 %; MCH 30.1 pg (26.0-34.0); MCHC 32.7 g/dL (28.0-37.0); MCV 91.9 fL (80.0-100.0); MONOCYTES 10.4 %; MPV 8.5 fl. (7.2-11.1); NUCLEATED RBCS 0 /100WBC; PLATELET COUNT* 161 thou/uL (150-400); POLYS 33.5 %; RBC 3.25 mil/uL (4.20-5.00); RDW-CV 17.4 % (10.5-14.5); WBC 2.6 thou/uL (4.0-11.0)
[2018-08-11 05:32] LABS: CALCIUM 9.6 mg/dL (8.5-10.1); CREATININE 0.8 mg/dL (0.6-1.3); MAGNESIUM 1.3 mg/dL (1.8-2.4); POTASSIUM 3.5 mmol/L (3.5-5.1)
[2018-08-11 07:30] VITALS: BP 153/76
[2018-08-11 12:04] VITALS: BP 146/71
[2018-08-11 16:27] VITALS: BP 156/72
--- NOTE | 2018-08-11 17:09 | 2DMMODE ---
[place] [address] 2 D/M-MODE ECHOCARDIOGRAM Name: KYREE BRAND Room: [address] IN .R.#: [id number] Admission: 08/09/18 Attend Phys: Carlos Weaver, Discharge: Date of : 40 Date of Service: 08/11/18 1709 Report #: [id number] THIS REPORT FOR: //name// APPROVED REPORT Study performed: 08/11/2018 13:50:22 EXAM: Comprehensive 2D, Doppler, and color-flow Echocardiogram Patient Location: Bedside BSA: 1.81 HR: 92 bpm BP: 146/71 mmHg Other Information Study Quality: Good Indications Pulmonary Embolism Dyspnea 2D Dimensions IVSd: 15.88 (7-11mm) LVOT Diam: 20.87 (18-24mm) LVDd: 49.30 mm PWd: 12.06 (7-11mm) Ascending Ao: 51.18 (22-36mm) LVDs: 39.37 (25-40mm) Aortic Root: 39.69 mm Volumes Left Atrial Volume (Systole) LA ESV Index: 31.40 mL/m2 Aortic Valve AoV Peak Teto.: 1.42 m/s AO Peak Gr.: 8.04 mmHg LVOT Max P.71 mmHg AO Mean Gr.: 4.69 mmHg LVOT Mean P.65 mmHg LVOT Max V: 1.09 m/s AO V2 VTI: 26.92 cm LVOT Mean V: 0.77 m/s DEVIN (VTI): 2.83 cm2 LVOT V1 VTI: 22.24 cm AI Greenlee: 0.87 m/s2 AI PHT: 1351.94 ms Mitral Valve E/A Ratio: 0.98 MV Decel. Time: 151.25 [place] [address] 2 D/M-MODE ECHOCARDIOGRAM Name: KYREE BRAND Room: [address] IN [facility].#: [id number] Admission: 08/09/18 Attend Phys: Carlos Weaver, Discharge: Date of : 40 Date of Service: 08/11/18 1709 Report #: [id number] MV E Max Teto.: 1.11 m/s MV PHT: 43.86 ms MVA (PHT): 5.02 cm2 TDI E/Lateral E': 9.25 E/Medial E': 11.10 Medial E' Teto.: 0.10 m/s Lateral E' Teto.: 0.12 m/s Pulmonary Valve PV Peak Teto.: 0.73 m/s PV Peak Gr.: 2.14 mmHg Tricuspid Valve RAP Estimate: 5.00 mmHg TR Peak Gr.: 36.36 mmHg RVSP: 41.36 mmHg PA Pressure: 41.36 mmHg Left Ventricle The left ventricle is normal size. There is normal LV segmental wall motion. Mild concentric left ventricular hypertrophy. Left ventricular systolic function is normal. LVEF is 60-65%. Grade I - abnormal relaxation pattern. Right Ventricle The right ventricle is normal size. The right ventricular systolic function is normal. Atria The left atrium size is normal. The right atrium size is normal. Aortic Valve The aortic valve is mildly sclerotic. Mild aortic regurgitation. There is no aortic valvular stenosis. Mitral Valve The mitral valve is normal in structure. Mild mitral regurgitation. No evidence of mitral valve stenosis. Tricuspid Valve The tricuspid valve is normal in structure. Trace tricuspid regurgitation. Pulmonic Valve The pulmonary valve is normal in structure. There is no pulmonic [place] [address] 2 D/M-MODE ECHOCARDIOGRAM Name: KYREE BRAND Room: [address] IN [facility]#: [id number] Admission: 08/09/18 Attend Phys: Carlos Weaver, Discharge: Date of : 40 Date of Service: 08/11/18 1709 Report #: [id number] [place] Vessels Aortic root is mildly dilated. Aortic arch is dilated. (4.4 cm) The ascending aorta is dilated. (5.1.cm) IVC is not well visualized. Pericardium There is no pericardial effusion. <Conclusion> The left ventricle is normal size. Mild concentric left ventricular hypertrophy. Left ventricular systolic function is normal. LVEF is 60-65%. Grade I - abnormal relaxation pattern. The aortic valve is mildly sclerotic. Mild aortic regurgitation. Mild mitral regurgitation. Trace tricuspid regurgitation. Aortic arch is dilated. (4.4 cm) The ascending aorta is dilated. (5.1.cm) <ELECTRONICALLY SIGNED> By: Zackery Cates MD, FACC 08/11/181708 08 08 Zackery Cates MD, FACC /INF
[2018-08-11 20:00] VITALS: BP 131/63
[2018-08-12] VITALS: BP 132/65
[2018-08-12 04:00] VITALS: BP 94/48
[2018-08-12 04:48] LABS: HEMATOCRIT 26.6 % (37.0-47.0); HEMOGLOBIN 8.8 gm/dL (12.0-15.0); MCH 30.4 pg (26.0-34.0); MCHC 33.1 g/dL (28.0-37.0); MCV 91.9 fL (80.0-100.0); MPV 8.2 fl. (7.2-11.1); RBC 2.9 mil/uL (4.20-5.00); RDW-CV 17.5 % (10.5-14.5); WBC 3.2 thou/uL (4.0-11.0)
[2018-08-12 05:15] LABS: CREATININE 0.8 mg/dL (0.6-1.3); MAGNESIUM 2.3 mg/dL (1.8-2.4); POTASSIUM 3.7 mmol/L (3.5-5.1)
[2018-08-12 08:00] VITALS: BP 102/53
[2018-08-12 12:15] VITALS: BP 152/73
[2018-08-12 20:00] VITALS: BP 141/72
[2018-08-13] VITALS: BP 120/55
[2018-08-13 04:00] VITALS: BP 111/52
[2018-08-13 08:00] VITALS: BP 128/72
[2018-08-13 12:12] VITALS: BP 153/71
[2018-08-13] MEDS ORDERED: NEURONTIN 300300 M1 PO (12:31)
[2018-08-13] MEDS ORDERED: OXYCODONE HCL15 MG PO (12:31)
[2018-08-13] MEDS ORDERED: FLEXERIL PO (12:31)
[2018-08-13] MEDS ORDERED: ENOXAPARIN80 MG/0.1 SUBQ (12:35)
[2018-08-13] MEDS ORDERED: CEFDINIR300 MG PO (13:35)
[2018-08-13 13:37] VITALS: BP 153/71
== END 2018-08-13 12:00 | disposition home or self-care (01) | DRG 177 ==
LOC: M.ERS 10:14 → M.TBA-ER 12:22 → M.2W 12:22 → M.TBA-ER 20:20 → M.2W 08-13 05:10
PROVIDERS: Nurse Practitioner Family; ADMIT Internal Medicine
DX: J15.212 Pneumonia due to Methicillin resistant Staphylococcus aureus (principal); I26.99 Other pulmonary embolism without acute cor pulmonale; N39.0 Urinary tract infection, site not specified; J98.11 Atelectasis; C41.9 Malignant neoplasm of bone and articular cartilage, unspecified; Z96.621 Presence of right artificial elbow joint; D70.1 Agranulocytosis secondary to cancer chemotherapy; F41.1 Generalized anxiety disorder; I73.9 Peripheral vascular disease, unspecified; G89.29 Other chronic pain; F32.9 Major depressive disorder, single episode, unspecified; Z96.653 Presence of artificial knee joint, bilateral; B96.89 Other specified bacterial agents as the cause of diseases classified elsewhere; Z90.49 Acquired absence of other specified parts of digestive tract; Z90.710 Acquired absence of both cervix and uterus; Z92.21 Personal history of antineoplastic chemotherapy; Z92.3 Personal history of irradiation; Z88.6 Allergy status to analgesic agent; Z88.0 Allergy status to penicillin; Z88.2 Allergy status to sulfonamides; Z79.899 Other long term (current) drug therapy

== ENCOUNTER 2018-08-15 09:39 | Emergency (ER) | payer MEDICARE, OTHER ==
[~2018-08-15] VITALS: Ht 162.6 cm; Wt 85.3 kg
--- NOTE | ~2018-08-15 | EKG ---
[place] [address] ELECTROCARDIOGRAM REPORT Name: KYREE BRAND Room: [facility]#: [id number] Admission: 08/15/18 Attend Phys: Discharge: 08/15/18 Date of : 40 Report #: [id number] THIS REPORT FOR: //name// [facility] ED Test Date: 2018-08-15 Test Time: 09:58:29 Pat Name: KYREE MACEDOVIELKA Department: Room: Gender: F Repatcher: Adrian BILL : 1940 Requested By: Patrick Taylor Order Number: [id number] MD: Measurements Intervals [place] Rate: 97 P: 22 ID: [id number] QRS: -8 QRSD: 104 T: 24 QT: 365 QTc: 464 Interpretive Statements Sinus rhythm Compared to ECG 08/09/2018 11:01:54 Sinus tachycardia no longer present [email or web address] By: 7 Epiphany EpiphanyMD /EPI
[~2018-08-15 09:39] MED LIST changes: +CEFDINIR300 MG PO; +DEXAMETHASONE 44 M1 PO; +ENOXAPARIN80 MG/0.1 SUBQ; +FLEXERIL PO; +NEURONTIN 300300 M1 PO; +OXYCODONE HCL15 MG PO; +OXYCONTIN20 M1 PO
[2018-08-15 09:59] LABS: NUCLEATED RBCS 0 /100WBC
[2018-08-15 10:04] LABS: HEMATOCRIT 27.8 % (37.0-47.0); HEMOGLOBIN 8.8 gm/dL (12.0-15.0); MCH 29.2 pg (26.0-34.0); MCHC 31.8 g/dL (28.0-37.0); MCV 91.9 fL (80.0-100.0); MPV 7.7 fl. (7.2-11.1); PLATELET COUNT* 188 thou/uL (150-400); RBC 3.02 mil/uL (4.20-5.00); RDW-CV 18.2 % (10.5-14.5)
[2018-08-15 10:08] LABS: URINE BILIRUBIN NEGATIVE (Negative); URINE BLOOD TRACE (Negative); URINE CLARITY CLEAR; URINE COLOR YELLOW; URINE GLUCOSE-RANDOM NEGATIVE (Negative); URINE KETONES NEGATIVE (Negative); URINE LEUKOCYTES-REFLEX NEGATIVE (Negative); URINE NITRITE-REFLEX NEGATIVE (Negative); URINE PROTEIN NEGATIVE (Negative); URINE SPECIFIC GRAVITY 1.025 (1.005-1.030); URINE UROBILINOGEN 0.2 E.U./dl (0.2-1.0)
[2018-08-15 10:08] LABS: APTT 32.2 Seconds (25.0-31.3); INR 1.1
[2018-08-15 10:15] LABS: ALBUMIN 2.6 g/dL (3.4-5.0); ALKALINE PHOSPHATASE 122 U/L (46-116); ANION GAP 6 mmol/L (7-16); BUN 11 mg/dL (7-18); CHLORIDE 104 mmol/L (98-107); CO2 28 mmol/L (21-32); CREATININE 0.9 mg/dL (0.6-1.3); GLUCOSE 101 mg/dL (70-99); POTASSIUM 3.7 mmol/L (3.5-5.1); SGOT 20 U/L (15-37); SGPT 16 U/L (30-65); SODIUM 138 mmol/L (136-145); TOTAL BILIRUBIN 0.3 mg/dL (<0.1-1.0); TOTAL PROTEIN 5.3 g/dL (6.4-8.2); TROPONIN-I LEVEL <0.06 ng/mL (<0.06)
[2018-08-15 10:43] LABS: ABSOLUTE BASOPHILS 0.1 thou/uL (0.0-0.2); ABSOLUTE LYMPHOCYTES 0.8 thou/uL (0.8-5.3); ABSOLUTE MONOCYTES 1.1 thou/uL (0.0-1.2); ABSOLUTE NEUTROPHILS 11.9 thou/uL (1.6-8.1); METAMYELOCYTES 1 %; OVALOCYTES 2+; PLATELET ESTIMATE ADEQUATE
[2018-08-15 10:44] LABS: HYPOCHROMASIA 2+; POLYCHROMASIA 1+
[2018-08-15 10:45] LABS: TOXIC GRANULATION 2+
[2018-08-15 10:46] LABS: MICROCYTES 2+
[2018-08-15 12:06] VITALS: BP 105/48
== END 2018-08-15 12:07 | disposition home or self-care (01) ==
LOC: M.ERS 09:39
PROVIDERS: Emergency Medicine Emergency Medical Services
DX: T65.891A Toxic effect of other specified substances, accidental (unintentional), initial encounter (principal); R53.83 Other fatigue; Z90.710 Acquired absence of both cervix and uterus; M79.7 Fibromyalgia; Z96.653 Presence of artificial knee joint, bilateral; Z85.828 Personal history of other malignant neoplasm of skin; Z96.621 Presence of right artificial elbow joint; Z88.8 Allergy status to other drugs, medicaments and biological substances; Z88.5 Allergy status to narcotic agent; Z88.0 Allergy status to penicillin; Z88.2 Allergy status to sulfonamides; Z98.890 Other specified postprocedural states; Z92.21 Personal history of antineoplastic chemotherapy; Y92.89 Other specified places as the place of occurrence of the external cause

== ENCOUNTER 2018-09-18 15:10 | Emergency (ER) | payer MEDICARE, OTHER ==
[~2018-09-18] VITALS: Ht 165.1 cm; Wt 73.5 kg
[2018-09-18] MEDS ORDERED: SAVELLA50 MG PO (15:57)
[2018-09-18] MEDS ORDERED: FLEXERIL PO (15:59)
[2018-09-18 17:09] VITALS: BP 126/65
== END 2018-09-18 17:10 | disposition home or self-care (01) ==
LOC: M.ERS 15:10
DX: S22.050A Wedge compression fracture of T5-T6 vertebra, initial encounter for closed fracture (principal); S22.060A Wedge compression fracture of T7-T8 vertebra, initial encounter for closed fracture; S22.080A Wedge compression fracture of T11-T12 vertebra, initial encounter for closed fracture; M79.7 Fibromyalgia; Z88.5 Allergy status to narcotic agent; Z88.0 Allergy status to penicillin; Z88.2 Allergy status to sulfonamides; Z88.6 Allergy status to analgesic agent; Z90.710 Acquired absence of both cervix and uterus; Z96.653 Presence of artificial knee joint, bilateral; Z85.828 Personal history of other malignant neoplasm of skin; Z96.621 Presence of right artificial elbow joint; W18.39XA Other fall on same level, initial encounter; Y93.89 Activity, other specified; Y92.89 Other specified places as the place of occurrence of the external cause; Y99.8 Other external cause status

== ENCOUNTER 2018-09-20 13:15 | Inpatient (IN) | payer MEDICARE, OTHER ==
[~2018-09-20] VITALS: Ht 165.1 cm; Wt 75.3 kg
[2018-09-20 13:44] VITALS: BP 109/88
[2018-09-20 14:22] LABS: URINE BLOOD 2+ (Negative); URINE CLARITY CLEAR; URINE COLOR DARK YELLOW; URINE GLUCOSE-RANDOM NEGATIVE (Negative); URINE KETONES NEGATIVE (Negative); URINE NITRITE-REFLEX NEGATIVE (Negative); URINE PROTEIN 2+ (Negative); URINE SPECIFIC GRAVITY 1.025 (1.005-1.030); URINE UROBILINOGEN 0.2 E.U./dl (0.2-1.0)
[2018-09-20 14:27] LABS: ICTOTEST (BILI CONFIRMATORY) Negative (Negative); URINE BILIRUBIN 1+ (Negative); URINE LEUKOCYTES-REFLEX 2+ (Negative)
[2018-09-20 14:44] LABS: SQUAMOUS 4-10 Moderate /LPF (0-3); URINE WBC-REFLEX >25 Many /HPF (0-5)
[2018-09-20 14:45] LABS: BACTERIA-REFLEX >30 Many /HPF (None Seen); TRANSITIONAL EPITHEL CELL 0-3 Few /LPF (None Seen); URINE RBC 0-2 Rare /HPF (0-2)
[2018-09-20 14:46] LABS: MUCUS 0-3 Light strn/LPF (None Seen)
[2018-09-20 14:47] LABS: WBC CLUMPS Few (None Seen)
[2018-09-20 14:48] LABS: CRYSTALS None Seen /LPF (None Seen); HYALINE CASTS 0-3 Few /LPF (None Seen)
[2018-09-20 15:01] LABS: ANION GAP 9 mmol/L (7-16); BUN 22 mg/dL (7-18); CHLORIDE 101 mmol/L (98-107); CO2 29 mmol/L (21-32); CREATININE 1.5 mg/dL (0.6-1.3); GLUCOSE 106 mg/dL (70-99); POTASSIUM 3.1 mmol/L (3.5-5.1); SODIUM 139 mmol/L (136-145)
[2018-09-20 15:02] LABS: APTT 31.9 Seconds (25.0-31.3); INR 1.2; PROTIME 12.4 Seconds (9.20-11.50)
[2018-09-20 15:06] LABS: HEMATOCRIT 26.4 % (37.0-47.0); HEMOGLOBIN 8.8 gm/dL (12.0-15.0); MCH 31.9 pg (26.0-34.0); MCHC 33.3 g/dL (28.0-37.0); MCV 95.7 fL (80.0-100.0); MPV 10.3 fl. (7.2-11.1); NUCLEATED RBCS 1 /100WBC; PLATELET COUNT* 74 thou/uL (150-400); RBC 2.76 mil/uL (4.20-5.00); RDW-CV 19.1 % (10.5-14.5)
[2018-09-20 15:10] LABS: WBC 1.1 thou/uL (4.0-11.0)
[2018-09-20 15:12] LABS: ALBUMIN 3.3 g/dL (3.4-5.0); ALKALINE PHOSPHATASE 69 U/L (46-116); NT-PRO BRAIN NAT PEPTIDE 4731 pg/mL (<300); SGOT 18 U/L (15-37); SGPT 17 U/L (30-65); TOTAL BILIRUBIN 1.2 mg/dL (<0.1-1.0); TOTAL PROTEIN 6.2 g/dL (6.4-8.2); TROPONIN-I LEVEL <0.06 ng/mL (<0.06)
[2018-09-20 15:51] LABS: ABSOLUTE LYMPHOCYTES 0.3 thou/uL (0.8-5.3); ABSOLUTE NEUTROPHILS 0.7 thou/uL (1.6-8.1); METAMYELOCYTES 5 %; MYELOCYTES 1 %
[2018-09-20 15:52] LABS: ANISOCYTOSIS 1+; PLATELET ESTIMATE ADEQUATE; POLYCHROMASIA 1+
[2018-09-20 17:10] VITALS: BP 78/56
[2018-09-20 18:45] VITALS: BP 78/56
[2018-09-20] MEDS ORDERED: VANCOCIN 125 M125 M1 PO (18:49)
[2018-09-20 19:00] VITALS: BP 99/49
[2018-09-20 23:04] VITALS: BP 118/57
[2018-09-21 04:11] VITALS: BP 115/60
[2018-09-21 05:27] LABS: ABSOLUTE LYMPHOCYTES 0.2 thou/uL (0.8-5.3); ABSOLUTE MONOCYTES 0.2 thou/uL (0.0-1.2); ABSOLUTE NEUTROPHILS 0.6 thou/uL (1.6-8.1); EOSINOPHILS 3.4 %; HEMATOCRIT 24.7 % (37.0-47.0); HEMOGLOBIN 8.2 gm/dL (12.0-15.0); LYMPHOCYTES 21.3 %; MCH 32.3 pg (26.0-34.0); MCHC 33.1 g/dL (28.0-37.0); MCV 97.6 fL (80.0-100.0); MPV 9.8 fl. (7.2-11.1); NUCLEATED RBCS 1 /100WBC; PLATELET COUNT* 69 thou/uL (150-400); POLYS 57.3 %; RBC 2.53 mil/uL (4.20-5.00); RDW-CV 19.3 % (10.5-14.5)
[2018-09-21 05:42] LABS: CALCIUM 9.7 mg/dL (8.5-10.1); CREATININE 1.1 mg/dL (0.6-1.3); MAGNESIUM 2.3 mg/dL (1.8-2.4); POTASSIUM 3.1 mmol/L (3.5-5.1)
[2018-09-21 07:30] VITALS: BP 115/59
[2018-09-21 12:57] VITALS: BP 126/70
--- NOTE | 2018-09-21 15:26 | EKG ---
[place] [address] ELECTROCARDIOGRAM REPORT Name: KYREE BRAND Room: [address] ADM IN .R.#: [id number] Admission: 09/20/18 Attend Phys: Robin Rowe MD Discharge: Date of : 40 Report #: [id number] THIS REPORT FOR: //name// [facility] ED Test Date: 2018-09-20 Test Time: 14:38:14 Pat Name: KYREE BRAND Department: Room: [facility] Gender: F Poultry Hatchery Manager: RAJAN : 1940 Requested By: Javon Goodrich Order Number: [id number] MD: Bruno Hester Measurements Intervals [place] Rate: 119 P: -42 IN: 125 QRS: -11 QRSD: 91 T: QT: 324 QTc: 456 Interpretive Statements Sinus tachycardia Multiple premature complexes, vent & supraven Left ventricular hypertrophy Borderline T abnormalities, diffuse leads Compared to ECG 08/15/2018 09:58:29 Left ventricular hypertrophy now present T-wave abnormality now present Electronically Signed On 09-21-2018 15:26:39 BAR HOSTESS by Bruno Hester [email or web address] <ELECTRONICALLY SIGNED> By: Bruno Hester MD, [facility] 09/21/18 1526 1438 1438 Bruno Hester MD, [facility] /EPI
[2018-09-21 16:50] VITALS: BP 155/88
[2018-09-21 20:00] VITALS: BP 100/67
[2018-09-22] VITALS (12 sets, daily range): BP systolic 105–149; BP diastolic 51–82
[2018-09-22 05:38] LABS: HEMATOCRIT 22.7 % (37.0-47.0); HEMOGLOBIN 7.5 gm/dL (12.0-15.0); MCH 31.9 pg (26.0-34.0); MCHC 33.1 g/dL (28.0-37.0); MCV 96.4 fL (80.0-100.0); MPV 9.1 fl. (7.2-11.1); RBC 2.36 mil/uL (4.20-5.00); RDW-CV 19.3 % (10.5-14.5)
[2018-09-22 05:52] LABS: CALCIUM 9.9 mg/dL (8.5-10.1); CREATININE 0.9 mg/dL (0.6-1.3); MAGNESIUM 1.3 mg/dL (1.8-2.4); POTASSIUM 3.4 mmol/L (3.5-5.1)
[2018-09-22 05:56] LABS: WBC 1.5 thou/uL (4.0-11.0)
[2018-09-23] VITALS: BP 93/40
[2018-09-23 04:00] VITALS: BP 158/77
[2018-09-23 05:01] LABS: HEMATOCRIT 21.7 % (37.0-47.0); HEMOGLOBIN 7.3 gm/dL (12.0-15.0); MCH 32.1 pg (26.0-34.0); MCHC 33.4 g/dL (28.0-37.0); MCV 95.9 fL (80.0-100.0); MPV 9.3 fl. (7.2-11.1); PLATELET COUNT* 92 thou/uL (150-400); RBC 2.26 mil/uL (4.20-5.00); RDW-CV 19.7 % (10.5-14.5)
[2018-09-23 05:09] LABS: CALCIUM 9.5 mg/dL (8.5-10.1); CREATININE 0.9 mg/dL (0.6-1.3); MAGNESIUM 2.4 mg/dL (1.8-2.4); POTASSIUM 3.7 mmol/L (3.5-5.1)
[2018-09-23 05:12] LABS: WBC 1.9 thou/uL (4.0-11.0)
[2018-09-23 09:40] VITALS: BP 108/58
[2018-09-23 12:00] VITALS: BP 141/65
[2018-09-23 12:20] LABS: ABSOLUTE LYMPHOCYTES 0.2 thou/uL (0.8-5.3); ABSOLUTE MONOCYTES 0.2 thou/uL (0.0-1.2); ABSOLUTE NEUTROPHILS 1.5 thou/uL (1.6-8.1); PLATELET ESTIMATE DECREASED
[2018-09-23 12:21] LABS: ANISOCYTOSIS 1+
[2018-09-23 16:00] VITALS: BP 119/53
[2018-09-23 19:49] VITALS: BP 125/47
[2018-09-24 01:03] VITALS: BP 103/54
[2018-09-24 04:38] LABS: HEMATOCRIT 22.9 % (37.0-47.0); HEMOGLOBIN 7.6 gm/dL (12.0-15.0); MCH 31.8 pg (26.0-34.0); MCHC 33.2 g/dL (28.0-37.0); MCV 95.8 fL (80.0-100.0); MPV 8.6 fl. (7.2-11.1); RBC 2.39 mil/uL (4.20-5.00); RDW-CV 20.3 % (10.5-14.5); WBC 3.9 thou/uL (4.0-11.0)
[2018-09-24 05:05] VITALS: BP 136/71
[2018-09-24 05:05] LABS: CALCIUM 9.6 mg/dL (8.5-10.1); CREATININE 0.8 mg/dL (0.6-1.3); MAGNESIUM 1.6 mg/dL (1.8-2.4); POTASSIUM 3.8 mmol/L (3.5-5.1)
[2018-09-24 08:15] VITALS: BP 107/56
[2018-09-24 11:45] VITALS: BP 112/67
[2018-09-24 16:00] VITALS: BP 134/76
[2018-09-24 19:56] VITALS: BP 145/86
[2018-09-25 00:33] VITALS: BP 106/67
[2018-09-25 04:30] VITALS: BP 140/68
[2018-09-25 07:41] VITALS: BP 141/87
--- NOTE | 2018-09-25 07:54 | CON ---
[address] [address] CONSULTATION Name: KYREE BRAND Room: [address] IN .R.#: [id number] Admission: 09/20/18 Attend Phys: Robin Rowe MD Discharge: Date of : 40 Report #: [id number] THIS REPORT FOR: //name// CC: Adam Rowe DATE OF SERVICE: 09/22/2018 ATTENDING PHYSICIAN: Celestine Winters MD. REASON FOR EVALUATION: Complicated urinary tract infection. HISTORY OF PRESENT ILLNESS: Chart reviewed, patient examined. This is a 78-year-old woman with extensive medical history, has metastatic angiosarcoma. She is actually on what appears to be palliative chemotherapy. This has been complicated by pancytopenia. She also has frequent episodes of fairly marked encephalopathy including hallucinations and perhaps attributable to medicines and multiple falls, which were complicated by evidence of multilevel vertebral fractures. She has chronic back pain, also has lymphedema in the left lower extremity. As a result, the surgery is required for the angiosarcoma. Due to clinical deterioration, uncontrolled pain, poor p.o. intake, she was evaluated in the Emergency Room, was confirmed to have marked pyuria with urinalysis. She was started empirically on cefepime, has a history of C. difficile colitis as well and oral vancomycin was started, although at this point, she has no diarrhea. She is mildly encephalopathic at this point. Primary focus on the left lower extremity lymphedema has worsened dramatically over the course of last several days. She did undergo vertebroplasty with some benefits earlier today. ALLERGIES: TO ANGEL INHIBITORS, PENICILLINS, WHICH CAUSE ERUPTION; SULFA ERUPTION; MORPHINE, CODEINE, HYDROCODONE. CURRENT MEDICATIONS: Include dicyclomine, milnacipran, cholecalciferol, multivitamin, cyanocobalamin, pantoprazole, cyclobenzaprine, gabapentin, enoxaparin, vancomycin orally 125 p.o. q.6h., cefepime 1 gram daily. PAST MEDICAL HISTORY: As described above, history of previous lymphoma, history of angiosarcoma, fibromyalgia, bilateral total knee arthroplasties, hysterectomy, cholecystectomy. SOCIAL HISTORY: Nonsmoker, no ethanol. FAMILY HISTORY: Noncontributory. REVIEW OF SYSTEMS: Again, no nausea, diarrhea. No abdominal-related complaints. Denies any significant pulmonary-related complaints. Otherwise, [place] [address] CONSULTATION Name: KYREE BRAND Sherlyn Room: [address] IN [facility]#: [id number] Admission: 09/20/18 Attend Phys: Robin Rowe MD Discharge: Date of : 40 Report #: [id number] 10-point review of systems is unremarkable with exception noted above in history of present illness. PHYSICAL EXAMINATION: GENERAL: Somewhat of a diminished affect. She appears chronically ill, undernourished. She is in mild distress. She is sitting in the chair. VITAL SIGNS: Temperature 97.3, pulse 67, respirations 18, blood pressure 109/74. SKIN: Warm, dry, no rashes. HEENT: Normocephalic. Extraocular muscles intact. NECK: Supple. LUNGS: Somewhat diminished at the bases, generally clear. HEART: Regular. I do not appreciate any murmur. ABDOMEN: Somewhat distended, soft. There are no peritoneal signs. EXTREMITIES: Left lower extremity distally has marked edema. There is some erythrodermic type suggesting of more venous stasis dermatitis. GENITOURINARY: Deferred. RECTAL: Deferred. LABORATORY DATA: Blood cultures sterile thus far. Electrolytes: Sodium 139, potassium 3.4, chloride 104, bicarbonate is 28, BUN and creatinine 14 and 0.9, glucose of 90. Estimated GFR of 61. CBC: White count of 1.5 that is actually up from initial of 1.0, H and H 7.5 and 22.7, platelets of 81. Lactic acid of 2.0. Liver tests are unremarkable. Albumin 3.3, total protein 6.2. Urinalysis showed greater than 25 white cells, greater than 30 bacteria. ASSESSMENT AND PLAN: Complicated urinary tract infection and this is a setting of recurrent urinary tract infections and an isolation of an Escherichia coli that was susceptible back in July. NELLA of equal to 4 this is setting of pancytopenia. She is certainly at risk for other infectious complications. We will continue the cefepime. We will see how she does clinically and agree with the GCSF. She is quite concerned about the lymphedema. Wound care nurse to evaluate, go ahead and apply some compression. At this point, I do not believe she has had pneumonitis. Did discuss in detail with her family as well. Thank you, we will follow. <ELECTRONICALLY SIGNED> By: Thierry Uribe MD 09/25/18 0754 1755 [id number] Uribe MD /nt
[2018-09-25 11:19] VITALS: BP 125/60
[2018-09-25 12:57] LABS: URINE BILIRUBIN NEGATIVE (Negative); URINE BLOOD 3+ (Negative); URINE CLARITY CLEAR; URINE COLOR YELLOW; URINE GLUCOSE-RANDOM NEGATIVE (Negative); URINE KETONES NEGATIVE (Negative); URINE LEUKOCYTES-REFLEX NEGATIVE (Negative); URINE NITRITE-REFLEX NEGATIVE (Negative); URINE PROTEIN NEGATIVE (Negative); URINE UROBILINOGEN 0.2 E.U./dl (0.2-1.0)
[2018-09-25 13:19] LABS: BACTERIA-REFLEX 1-9 Few /HPF (None Seen); CASTS None Seen /LPF (None Seen); CRYSTALS None Seen /LPF (None Seen); MUCUS None Seen strn/LPF (None Seen); SQUAMOUS 0-3 Few /LPF (0-3); URINE RBC 3-10 Few /HPF (0-2); URINE WBC-REFLEX 0-5 Rare /HPF (0-5)
[2018-09-25 15:30] VITALS: BP 118/68
[2018-09-25 20:14] VITALS: BP 150/71
[2018-09-26] VITALS: BP 139/79
[2018-09-26 04:46] LABS: HEMATOCRIT 23.4 % (37.0-47.0); HEMOGLOBIN 7.7 gm/dL (12.0-15.0); MCH 32.1 pg (26.0-34.0); MCV 97.2 fL (80.0-100.0); MPV 8.5 fl. (7.2-11.1); RBC 2.41 mil/uL (4.20-5.00); WBC 2.3 thou/uL (4.0-11.0)
[2018-09-26 04:54] LABS: CALCIUM 9.9 mg/dL (8.5-10.1); CREATININE 0.8 mg/dL (0.6-1.3); MAGNESIUM 1.5 mg/dL (1.8-2.4); POTASSIUM 3.9 mmol/L (3.5-5.1)
[2018-09-26 08:00] VITALS: BP 107/71
[2018-09-26 13:02] VITALS: BP 103/56
[2018-09-26 16:52] VITALS: BP 110/66
[2018-09-27] VITALS: BP 165/92
[2018-09-27 04:00] VITALS: BP 104/62
[2018-09-27 08:00] VITALS: BP 109/52
[2018-09-27 12:00] VITALS: BP 138/78
[2018-09-27 14:41] LABS: URINE BILIRUBIN NEGATIVE (Negative); URINE BLOOD TRACE (Negative); URINE CLARITY CLEAR; URINE COLOR YELLOW; URINE GLUCOSE-RANDOM NEGATIVE (Negative); URINE KETONES NEGATIVE (Negative); URINE LEUKOCYTES-REFLEX NEGATIVE (Negative); URINE NITRITE-REFLEX NEGATIVE (Negative); URINE PROTEIN 1+ (Negative); URINE UROBILINOGEN 0.2 E.U./dl (0.2-1.0)
[2018-09-27 16:00] VITALS: BP 125/72
[2018-09-27 20:00] VITALS: BP 154/81
[2018-09-28] VITALS: BP 130/88
[2018-09-28 04:00] VITALS: BP 128/74
[2018-09-28 08:17] VITALS: BP 116/77
[2018-09-28 12:02] VITALS: BP 103/57
[2018-09-28 17:19] VITALS: BP 135/99
[2018-09-28 20:00] VITALS: BP 147/83
[2018-09-29] VITALS: BP 100/73
[2018-09-29 04:00] VITALS: BP 105/65
[2018-09-29 04:52] LABS: HEMATOCRIT 25.5 % (37.0-47.0); HEMOGLOBIN 8.3 gm/dL (12.0-15.0); MCH 32.1 pg (26.0-34.0); MCHC 32.5 g/dL (28.0-37.0); MCV 98.8 fL (80.0-100.0); MPV 7.9 fl. (7.2-11.1); RBC 2.58 mil/uL (4.20-5.00); RDW-CV 21.7 % (10.5-14.5); WBC 2.4 thou/uL (4.0-11.0)
[2018-09-29 05:00] LABS: CALCIUM 9.9 mg/dL (8.5-10.1); CREATININE 0.6 mg/dL (0.6-1.3); POTASSIUM 4.3 mmol/L (3.5-5.1)
[2018-09-29 07:30] VITALS: BP 121/72
[2018-09-29 11:58] VITALS: BP 124/89
[2018-09-29 15:38] VITALS: BP 129/76
[2018-09-29] MEDS ORDERED: AMBIEN 5 MG TABL5 M1 PO (16:54)
[2018-09-29] MEDS ORDERED: ENOXAPARIN100 MG/11 SUBQ (16:57)
[2018-09-29] MEDS ORDERED: SEROQUEL 25 MG25 M1 PO (16:59)
[2018-09-29] MEDS ORDERED: UNICOMPLEX M TA1 TA1 PO (16:59)
[2018-09-29] MEDS ORDERED: TYLENOL325 MG PO (17:00)
--- NOTE | 2018-10-01 08:01 | D ---
[address] [address] DISCHARGE SUMMARY Name: KYREE BRAND Room: [address] IN ..#: [id number] Admission: 09/20/18 Attend Phys: Robin Rowe MD Discharge: 09/29/18 Date of : 40 Report #: [id number] THIS REPORT FOR: //name// CC: Adam Rowe DATE OF SERVICE: 09/29/2018 DISCHARGE DIAGNOSES: 1. Complicated urinary tract infection. 2. Pancytopenia. 3. Vertebral compression fracture, status post vertebroplasty. 4. Sepsis secondary to complicated urinary tract infection 5. Pancytopenia 6. Fibromyalgia. 7. Lymphedema. 8. Abdominal aortic aneurysm. 9. History of multiple pulmonary embolism. COURSE DURING THE HOSPITAL: The patient is a 78-year-old female, who presented to us here for intractable pain. The patient has history of stage 4 angiosarcoma and palliative chemo, presented to us here for intractable pain secondary to multiple vertebral fractures. She was then admitted. She was noted to have UTI and reported to have C. diff. She was given fluids. Hem-Onc was consulted. She also has history of BPH, she was placed on Lovenox. I was consulted for evaluation of vertebroplasty and the patient had an MRI done of the lumbar, which showed focal areas of moderate replacement concerning for metastatic disease. There is chronic-appearing T12 compression fracture. The patient underwent vertebroplasty on 09/22/2017. Dr. Uribe was then consulted and has managed antibiotics. She has received antibiotics. She was placed on Merrem and also was placed on vancomycin taper for the C. diff. Oncology was then consulted and he added Neupogen 300 mcg and holding up iron and they will see her as an outpatient. The patient has slow progress. She finished her antibiotics and Dr. Uribe was okay with discontinuing the meropenem and continuing the vancomycin taper. She will be discharged to rehab and she will have compression stockings also. We will do an ultrasound of the legs and if it is negative for DVT, she is going to have lymphedema therapy. DISCHARGE PHYSICAL EXAMINATION: VITAL SIGNS: Temperature is 36.3, heart rate stable, respiratory rate is 18, and blood pressure is 129/76. She is 94% on room air. GENERAL: The patient is alert. She looks frail, not in acute respiratory distress. HEENT: Head is normocephalic and atraumatic. Nares patent. Clear oropharynx. NECK: Supple. No lymphadenopathy. CARDIOVASCULAR: Normal rate, regular rhythm. No murmurs noted. RESPIRATORY: Clear to auscultation bilaterally. No crackles. GASTROINTESTINAL: Abdomen is soft, nontender, good bowel sounds. No organomegaly. GENITOURINARY: Deferred. MUSCULOSKELETAL: Fair strength. She does have lymphedema, more on the left than the right. DISCHARGE INSTRUCTIONS: The patient will be discharged to acute rehab for continued PT and OT. We will do lymphedema therapy [place] [address] DISCHARGE SUMMARY Name: KYREE BRAND Room: [address] IN [facility]#: [id number] Admission: 09/20/18 Attend Phys: Robin Rowe MD Discharge: 09/29/18 Date of : 40 Report #: [id number] DVT. DIET: Regular diet. ACTIVITY: With PT and with assistance. DISCHARGE MEDICATIONS: Discontinue amitriptyline. She takes Bentyl 10 mg b.i.d., cyclobenzaprine 10 mg p.o. t.i.d. Discontinue Ambien. Lexapro 10 mg daily, Lovenox 100 mg daily, Neurontin 300 mg b.i.d., omeprazole 40 mg daily, OxyIR 15 mg every 3 hours p.r.n. while awake, OxyContin 20 mg every 12 hours, Savella 50 mg daily, Seroquel 50 mg q.h.s. p.r.n. Theragran 1 tablet p.o. daily, Tylenol 650 q.6 hours p.r.n., vancomycin per Dr. Uribe, and vitamin B12 daily. I spent 38 minutes taking care of this patient today. <ELECTRONICALLY SIGNED> By: Cecy Barreto MD 10/01/18 0801 1544 [id number] Barreto MD /[facility]
== END 2018-09-29 17:15 | DRG 853 ==
LOC: M.ERS 13:15 → M.2W 16:42 → M.TBA-ER 16:42 → M.2W 18:06
PROVIDERS: Family Medicine; Internal Medicine; Specialist; ADMIT Family Medicine
PROC: 0PS43ZZ Reposition Thoracic Vertebra, Percutaneous Approach (ICD-10-PCS; principal; 2018-09-22)
PROC: 0PU43JZ Supplement Thoracic Vertebra with Synthetic Substitute, Percutaneous Approach (ICD-10-PCS; principal; 2018-09-22)
DX: A41.9 Sepsis, unspecified organism (principal); D61.810 Antineoplastic chemotherapy induced pancytopenia; N17.0 Acute kidney failure with tubular necrosis; F11.20 Opioid dependence, uncomplicated; F05 Delirium due to known physiological condition; M48.54XA Collapsed vertebra, not elsewhere classified, thoracic region, initial encounter for fracture; A04.72 Enterocolitis due to Clostridium difficile, not specified as recurrent; C49.22 Malignant neoplasm of connective and soft tissue of left lower limb, including hip; I50.30 Unspecified diastolic (congestive) heart failure; C49.9 Malignant neoplasm of connective and soft tissue, unspecified; Z96.621 Presence of right artificial elbow joint; Z96.653 Presence of artificial knee joint, bilateral; B96.20 Unspecified Escherichia coli [E. coli] as the cause of diseases classified elsewhere; I71.4 Abdominal aortic aneurysm, without rupture; N30.90 Cystitis, unspecified without hematuria; M79.7 Fibromyalgia; I89.0 Lymphedema, not elsewhere classified; N18.3 Chronic kidney disease, stage 3 (moderate); G89.3 Neoplasm related pain (acute) (chronic); E83.42 Hypomagnesemia; E87.6 Hypokalemia; D50.9 Iron deficiency anemia, unspecified; D63.8 Anemia in other chronic diseases classified elsewhere; Z51.5 Encounter for palliative care; B96.89 Other specified bacterial agents as the cause of diseases classified elsewhere; Z90.49 Acquired absence of other specified parts of digestive tract; Z90.710 Acquired absence of both cervix and uterus; Z88.6 Allergy status to analgesic agent; Z79.899 Other long term (current) drug therapy; Z88.2 Allergy status to sulfonamides; Z88.8 Allergy status to other drugs, medicaments and biological substances; Z86.711 Personal history of pulmonary embolism

== ENCOUNTER 2018-09-29 14:25 | Inpatient (IN) | payer MEDICARE, OTHER ==
[~2018-09-29] VITALS: Ht 162.6 cm; Wt 72.1 kg
--- NOTE | ~2018-09-29 | H ---
[address] [address] HISTORY AND PHYSICAL Name: KYREE BRAND Room: [address] IN .R.#: [id number] Admission: 09/29/18 Attend Phys: Alana Horn DO Discharge: Date of : 40 Report #: [id number] THIS REPORT FOR: //name// CC: Alana Sánchez DATE OF SERVICE: 09/29/2018 HISTORY OF PRESENT ILLNESS: The patient is admitted to Inpatient Rehabilitation to facilitate safe discharge home, status post acute hospitalization at [facility] with a T6-T7 vertebral fracture, known metastatic cancer and multiple medical comorbidities and therapeutic needs in all 3 areas. She does have a recent history of complicated urinary tract infection, pancytopenia, post vertebroplasty from above-mentioned vertebral compression fractures, sepsis secondary to complicated urinary tract infection, fibromyalgia, history of multiple pulmonary embolisms and known cancer diagnosis with chemotherapy regimen ensuing. PAST MEDICAL HISTORY: Unchanged from consultation. PAST SURGICAL HISTORY: Unchanged from consultation. ALLERGIES: ANGEL INHIBITORS, HYDROCODONE, MORPHINE, PENICILLIN, SULFA AND CODEINE. MEDICATIONS: Reviewed, reconciled by myself and are available in the MAR. SOCIAL HISTORY: Unchanged from consultation. FAMILY HISTORY: Unchanged from consultation. REVIEW OF SYSTEMS: A 14-point review of systems is done and is negative, except as mentioned in the HPI. Specifically, no fever, chest pain, shortness of breath, abdominal pain or distention. PHYSICAL EXAMINATION: GENERAL: Alert, oriented, in no apparent distress. VITAL SIGNS: Reviewed and are stable. HEENT: Head atraumatic, normocephalic. Pupils equal, round and reactive. ABDOMEN: Soft, nontender and nondistended. NEUROLOGIC: Cranial nerves 2-12 are grossly intact. No focal neuro deficits, 5/5 strength in bilateral upper and lower extremities. SKIN: Warm and dry. No rashes or lesions noted. ASSESSMENT: 1. Status post vertebroplasty due to compression fractures at T6 [place] [address] HISTORY AND PHYSICAL Name: KYREE BRAND Room: [address] IN [facility].#: [id number] Admission: 09/29/18 Attend Phys: Alana Horn DO Discharge: Date of : 40 Report #: [id number] 2. Metastatic cancer. 3. Complicated urinary tract infection with sepsis, improving. 4. Multiple medical comorbidities. PLAN: 1. Admission to Inpatient Rehabilitation. 2. PT, OT, speech, language, case management, nursing and HIMS to make evaluations and recommendations. 3. Plan of care and team Tuesday. By: 1121 [id number] Horn DO /nt
--- NOTE | ~2018-09-29 | PLAN ---
[address] [address] REHAB UNIT PLAN OF CARE Name: KYREE BRAND Room: [address] IN [facility].#: [id number] Admission: 09/29/18 Attend Phys: Alana Horn DO Discharge: Date of : 40 Report #: [id number] THIS REPORT FOR: //name// CC: Alana Medina Gonzalo DATE OF SERVICE: 09/30/2018 This is a 78-year-old female admitted to inpatient rehabilitation to facilitate safe discharge home, status post compression fractures of C6-C7, post vertebroplasty, known metastatic cancer, multiple medical comorbidities requiring acute daily medical care and debility with alterations in activities of daily living, requiring physical and occupational therapy as well as speech and language pathology. MEDICAL PROGNOSIS: Fair to poor given terminal cancer diagnosis; however, rehabilitation potential is good given motivation and goals that are in place. Estimated length of stay is 12-14 days with discharge disposition to home setting where she has an accessible house, supportive family. Previous level of function was modified independent with activities of daily living. Current level of function is minimum to moderate assistance of 1-2 depending on therapy, activity and time of day. Estimated length of stay is 10-12 days with discharge disposition to the home setting. Physical therapy will see the patient 60-90 minutes per day, 5 days per week, working on upper and lower body strength, balance, coordination, navigation. Occupational therapy will work with the patient 60-90 minutes per day, 5 days per week, working on upper and lower body strength, balance, coordination, navigation, bathing, dressing and toileting. Speech and language pathology will work with the patient 60-90 minutes per day, 5 days per week, working on comprehension, expression, social interaction, problem solving and memory. This is an overall plan of care, may change from time to time. We will team weekly and make changes to plan of care as needed. By: [id number] Horn DO /margarita
[~2018-09-29 14:25] MED LIST changes: +VANCOCIN 125 M125 M1 PO
[2018-09-29] MEDS ORDERED: AMBIEN 5 MG TABL5 M1 PO (16:54)
[2018-09-29] MEDS ORDERED: ENOXAPARIN100 MG/11 SUBQ (16:57)
[2018-09-29] MEDS ORDERED: UNICOMPLEX M TA1 TA1 PO (16:59)
[2018-09-29] MEDS ORDERED: SEROQUEL 25 MG25 M1 PO (16:59)
[2018-09-29] MEDS ORDERED: TYLENOL325 MG PO (17:00)
[2018-09-29 20:11] VITALS: BP 135/93
[2018-09-30 04:31] LABS: HEMATOCRIT 23.9 % (37.0-47.0); HEMOGLOBIN 7.9 gm/dL (12.0-15.0); MCH 32.3 pg (26.0-34.0); MCHC 32.8 g/dL (28.0-37.0); MCV 98.5 fL (80.0-100.0); RBC 2.43 mil/uL (4.20-5.00); RDW-CV 21.2 % (10.5-14.5); WBC 2.6 thou/uL (4.0-11.0)
[2018-09-30 04:36] LABS: CALCIUM 10.1 mg/dL (8.5-10.1); CREATININE 0.7 mg/dL (0.6-1.3); POTASSIUM 3.9 mmol/L (3.5-5.1)
[2018-09-30 07:00] VITALS: BP 132/72
[2018-09-30 20:25] VITALS: BP 123/70
[2018-10-01 08:15] VITALS: BP 114/59
[2018-10-01 19:00] VITALS: BP 132/69
[2018-10-02 08:55] VITALS: BP 117/59
[2018-10-02 19:15] VITALS: BP 139/73
[2018-10-03 06:36] LABS: URINE BILIRUBIN NEGATIVE (Negative); URINE BLOOD NEGATIVE (Negative); URINE CLARITY CLEAR; URINE COLOR YELLOW; URINE GLUCOSE-RANDOM NEGATIVE (Negative); URINE KETONES NEGATIVE (Negative); URINE LEUKOCYTES-REFLEX NEGATIVE (Negative); URINE NITRITE-REFLEX NEGATIVE (Negative); URINE PROTEIN TRACE (Negative); URINE UROBILINOGEN 0.2 E.U./dl (0.2-1.0)
[2018-10-03 09:06] VITALS: BP 115/54
[2018-10-03 19:52] VITALS: BP 128/69
[2018-10-04 08:17] VITALS: BP 117/55
[2018-10-04 20:25] VITALS: BP 113/49
[2018-10-05 08:00] VITALS: BP 108/51
[2018-10-05 09:30] VITALS: BP 108/51
[2018-10-05 20:30] VITALS: BP 106/57
[2018-10-06 07:30] VITALS: BP 90/70
[2018-10-06 20:00] VITALS: BP 126/66
[2018-10-07 08:00] VITALS: BP 89/43
[2018-10-07 20:51] VITALS: BP 126/69
[2018-10-08 08:35] VITALS: BP 108/48
[2018-10-08 19:45] VITALS: BP 107/62
[2018-10-09 08:14] VITALS: BP 114/57
[2018-10-09 19:45] VITALS: BP 128/69
[2018-10-10 08:00] VITALS: BP 90/58
[2018-10-10 21:23] VITALS: BP 130/66
[2018-10-11 01:05] VITALS: BP 130/66
[2018-10-11 07:30] VITALS: BP 122/69
[2018-10-11 13:59] VITALS: BP 130/66
== END 2018-10-11 14:42 | disposition home health service (06) | DRG 551 ==
LOC: M.REH 14:25
PROVIDERS: ADMIT Physical Medicine & Rehabilitation
DX: S22.059A Unspecified fracture of T5-T6 vertebra, initial encounter for closed fracture (principal); A41.9 Sepsis, unspecified organism; B37.0 Candidal stomatitis; C49.9 Malignant neoplasm of connective and soft tissue, unspecified; S22.069A Unspecified fracture of T7-T8 vertebra, initial encounter for closed fracture; M79.7 Fibromyalgia; Z96.621 Presence of right artificial elbow joint; Z96.653 Presence of artificial knee joint, bilateral; I87.8 Other specified disorders of veins; G62.9 Polyneuropathy, unspecified; Z87.440 Personal history of urinary (tract) infections; Z88.0 Allergy status to penicillin; Z88.2 Allergy status to sulfonamides; Z88.6 Allergy status to analgesic agent; Z88.8 Allergy status to other drugs, medicaments and biological substances; X58.XXXA Exposure to other specified factors, initial encounter; Y93.89 Activity, other specified; Y92.89 Other specified places as the place of occurrence of the external cause; Y99.8 Other external cause status; Z90.49 Acquired absence of other specified parts of digestive tract; Z90.710 Acquired absence of both cervix and uterus; K52.9 Noninfective gastroenteritis and colitis, unspecified; Z92.3 Personal history of irradiation; Z92.21 Personal history of antineoplastic chemotherapy; B96.89 Other specified bacterial agents as the cause of diseases classified elsewhere